=== PATIENT | female | born 1955 | race Caucasian/White ===

== ENCOUNTER 2019-04-26 06:20 | Day surgery (SDC) | payer OTHER ==
--- NOTE | 2019-04-25 15:27 | RAD REPORT ---
EXAM DESCRIPTION: RAD - Chest Pa And Lat (2 Views) - 04/25/2019 3:08 pm CLINICAL HISTORY: Preop chest, pending cholecystectomy and hernia repair COMPARISON: December 2017 TECHNIQUE: PA and lateral views of the chest were obtained. FINDINGS: The lungs are clear. Lung markings are similar to comparison. Heart size is normal and ce ntral vasculature is within normal limits. No pleural effusion or pneumothorax seen. No acute bony finding noted. No aortic abnormality. IMPRESSION: No acute cardiopulmonary process.
[2019-04-25 16:06] LABS: Potassium 4.1 mmol/L (3.5-5.1)
[2019-04-25 16:09] LABS: Albumin 3.8 g/dL (3.4-5.0); Bilirubin Direct 0.1 mg/dL (0-0.2); Bilirubin Total 0.4 mg/dL (0.2-1.0); Protein, Total 7.5 g/dL (6.4-8.2)
[2019-04-25 16:17] LABS: Absolute Lymphocytes (CBC) 1.7 K/uL (0.7-4.9); Absolute Monocytes 0.5 K/uL (0.1-1.3); Absolute Neutrophil 4.8 K/uL (1.8-8.0); Basophils % 0.6 % (0-1.3); Eosinophils % 2.1 % (0-4.4); Lymphocytes % 23.4 % (15.3-44.8); MPV 9.1 fL (7.6-11.3); Monocytes % 6.9 % (3.3-12.3); RBC Red Blood Cell Count 4.52 M/uL (3.86-4.86)
--- NOTE | 2019-04-26 06:17 | EKG ---
Test Date: 2019-04-25 Test Time: 14:55:40 Campus Security Officer: KASANDRA MEASUREMENT RESULTS: Intervals: Rate: 69 NC: 136 QRSD: 86 QT: 418 QTc: 447 Shirley: P: 56 NC: 136 QRS: -13 T: -7 INTERPRETIVE STATEMENTS: Normal sinus rhythm Possible Left atrial enlargement Borderline ECG Compared to ECG 01/05/2018 17:54:37 No significant changes Electronically Signed On 04-26-19 06:17:03 CDT by Dallas Lerma
--- OUTSIDE RECORDS SUMMARY | 2019-04-26 06:30 | XMS REPORT | Summary of Care ---
:1955 Author Organization [facility] Address [id number] [place] [id number] Encounter HQ Encntr_lorna(FIN) [id number] Date(s): 12/21/17 - 12/21/17 [facility] [id number] [place] [phone] Encounter Diagnosis Encounter for screening mammogram for malignant neoplasm of breast (Final) - 12/22 Discharge Disposition: Home or Self Care Attending Physician: Alvaro Jovel MD Referring Physician: Alvaro Jovel MD Vital Signs No data available for this section Problem List Condition Effective Dates Status Health Status Informant Anxiety(Confirmed) Active Apnea, sleep(Confirmed) Active HTN - Hypertension(Confirmed) Resolved Pain in lower back(Confirmed) Resolved Allergies, Adverse Reactions, Alerts Substance Reaction Severity Status amoxicillin Active Medications No data available for this section Results No data available for this section Immunizations No data available for this section Procedures Procedure Date Related Diagnosis Body Site Status Arthroplasty Completed section1 Completed Tonsillectomy Completed 1X2 Social History Social History Type Response Smoking Status Never smoker; Exposure to Tobacco Smoke None; Cigarette Smoking Last 365 Days No; Reg Smoking Cessation Counseling No entered on: 06/30/16 Assessment and Plan No data available for this section
--- OUTSIDE RECORDS SUMMARY | 2019-04-26 06:30 | XMS REPORT | Continuity of Care Document ---
:1955 Author Organization Interface Problems Problem Status Onset Classification Date Comments Source Date Reported DX: Active 03/24/20 [facility] R10.9=UNSPECIFIED 19 ABDOMINAL PAIN SCREENINGNO Active 12/19/19 [facility] PAIN,LUMPS OR 19 DC Left lower 01/19/20 04/20/2018 OPI quadrant pain 18 [place] SCREENING Active 11/25/19 [facility] MAMMOGRAM 18 DX: ROUTINE Active 01/27/20 [facility] SCREENING 17 Discharge 06/27/20 06/30/2016 [facility] Diagnosis: Acute 16 hypokalemia Discharge 06/27/20 06/30/2016 [facility] Diagnosis: Acute 16 anxiety DIZZINESS Active 06/27/20 [facility] 16 UNK Active 06/16/20 [facility] 16 Acute pharyngitis 06/07/20 Diagnosis 06/07/2016 [facility] 16 Posterior 06/07/20 Diagnosis 06/07/2016 [facility] rhinorrhea 16 Bacterial 05/18/20 Diagnosis 06/07/2016 [facility] conjunctivitis 16 SCREENING Active 11/29/19 [facility] 16 Anxiety Active Problem 03/30/2019 [facility], OPID [place] Apnea, sleep Active Problem 03/30/2019 [facility], [facility] [place] HTN - Resolved Problem 03/30/2019 Hypertension [facility], [facility] [place] Pain in lower Resolved Problem 03/30/2019 back [facility], OP[facility] [place] Unspecified 04/20/2018 [facility] dyspareunia [place] Encounter for 12/25/2018 [facility] screening mammogram for malignant neoplasm of breast Bacterial Problem 06/07/2016 [facility] Conjunctivitis Acute Pharyngitis Problem 06/07/2016 [facility] Posterior Problem 06/07/2016 [facility] Rhinorrhea Medications Medication Details Route Status Patient Ordering Order Source Instructions Provider Date Acetaminophen 325 1 tab, Route: Inactive MG / Hydrocodone PO, Drug Form: 2015 Bitartrate 5 MG TAB, Dosing Oral Tablet Weight 90.455, kg, Q4H, PRN Pain Score 1-3, Start date: 06/30/16 8:40:00 CDT, Duration: 30 day, Stop date: 07/30/16 8:39:00 CDTNotes: (Same as: [place] 325/5) Do not exceed 4gm/day of acetaminophen. Flumazenil 0.2 mg, Route: Inactive IVP, PRN, 2015 [facility] Dosing Weight 90.455, kg, PRN Benzodiazepine Reversal, Initial dose, Start date: 06/30/16 8:31:00 CDT, Duration: 30 day, Stop date: 07/30/16 8:30:00 CDT Fentanyl 50 microgram, Inactive Route: IVP, 2015 [facility] Q5Min, Dosing Weight 90.455, kg, PRN Pain Score 7-10, Start date: 06/30/16 8:31:00 CDT, Duration: 2 doses or times, Stop date: Limited # of times Ondansetron 4 mg, Route: Inactive IVP, ONCE, 2015 [facility] Dosing Weight 90.455, kg, PRN Nausea & Vomiting, Start date: 06/30/16 8:31:00 CDT Hydromorphone 0.5 mg, Route: Inactive IVP, Q5Min, 2015 [facility] Dosing Weight 90.455, kg, PRN Pain Score 7-10, Start date: 06/30/16 8:31:00 CDT, Duration: 4 doses or times, Stop date: Limited # of times Oxycodone 10 mg, Route: Inactive PO, Drug form: 2015 [facility] TAB, Q4H, Dosing Weight 90.455, kg, PRN Pain Score 7-10, Start date: 06/30/16 8:31:00 CDT, Duration: 30 day, Stop date: 07/30/16 8:30:00 CDT Naloxone 0.4 mg, Route: Inactive IVP, Q2MIN, 2015 [facility] Dosing Weight 90.455, kg, PRN Narcotic Reversal, Start date: 06/30/16 8:31:00 CDT, Duration: 8 doses or times, Stop date: Limited # of times Acetaminophen 1,000 mg, Inactive Route: IVPB, 2015 [facility] Drug form: INJ, ONCE, Dosing Weight 90.455, kg, PRN Pain Score 1-3, Start date: 06/30/16 8:31:00 CDT, Duration: 1 doses or times, Stop date: Limited # of times Labetalol 10 mg, Route: Inactive IVP, Q5Min, 2015 [facility] Dosing Weight 90.455, kg, PRN Elevated BP, Start date: 06/30/16 8:31:00 CDT, Duration: 5 doses or times, Stop date: Limited # of times ketOROLAC (ANES) IV, ONCE Inactive 2015 [facility] propofol (ANES) Route: IV, Inactive Drug form: 2015 [facility] INJ, ONCE, Stop date: 06/30/16 8:27:00 CDT lidocaine (ANES) Route: IV, Inactive Drug form: 2015 [facility] INJ, ONCE, Stop date: 06/30/16 8:27:00 CDT ondansetron Route: IV, Inactive (ANES) Drug form: 2015 [facility] INJ, ONCE, Stop date: 06/30/16 8:17:00 CDT fentaNYL (ANES) Route: IV, Inactive Drug form: 2015 [facility] INJ, ONCE, Stop date: 06/30/16 8:17:00 CDT levofloxacin Route: IV, Inactive (ANES) Drug form: 2015 [facility] INJ, ONCE, Stop date: 06/30/16 8:17:00 CDT metroNIDAZOLE Route: IV, Inactive (ANES) Drug form: 2015 [facility] INJ, ONCE, Stop date: 06/30/16 8:17:00 CDT midazolam (ANES) Route: IV, Inactive Drug form: 2015 [facility] SOLN, ONCE, Stop date: 06/30/16 8:07:00 CDT 72 HR Scopolamine 1 patch, Inactive 0.0139 MG/HR Route: TOP, 2015 [facility] Transdermal Patch Drug Form: ERFILM, Dosing Weight 90.455, kg, PRE OP, Start date: 06/30/16 8:00:00 CDT, Duration: 30 day, Stop date: 07/30/16 7:59:00 CDT LR 1000 mL INJ Route: IV, Inactive (ANES) Total Volume: 2015 [facility] 1,000, Start date: 06/30/16 7:32:00 CDT, Stop date: 06/30/16 8:32:00 CDT moxifloxacin 400 mg, Route: Inactive IVJUN BRIANAHUA, 2015 [facility] Dosing Weight 90.455, kg, Start date: 06/30/16 7:30:00 CDT Potassium 10 mEq=1 tab, Active Chloride 10 MEQ PO, Daily, 0 2015 [facility] Extended Release Refill(s) Tablet Calcium Chloride 1,000 mL, Inactive 0.0014 MEQ/ML / Rate: 25 2015 [facility] Potassium ml/hr, Infuse Chloride 0.004 over: 40 hr, MEQ/ML / Sodium Route: IV, Chloride 0.103 Dosing Weight MEQ/ML / Sodium 90.455 kg, Lactate 0.028 Total Volume: MEQ/ML Injectable 1,000, Start Solution date: 06/30/16 7:07:00 CDT, Duration: 30 day, Stop date: 07/30/16 7:06:00 CDT Levaquin 750 mg, 150 Inactive mL, Route: 2015 [facility] IVPB, Drug form: ANAISJIE, Start date: 06/30/16 7:00:00 CDT, Duration: 1 doses or timesNotes: (Same as:Levaquin) potassium 40 mEq, 2 tab, Inactive chloride Route: PO, 2015 [facility] Drug form: ERTAB, ONCE, Dosing Weight 90.455, kg, Priority: STAT, Start date: 06/27/16 18:20:00 CDT, Stop date: 06/27/16 18:20:00 CDTNotes: (Same as: K-Dur 20) "Do Not Crush" With food and full glass of water Ativan 1 mg, 1 tab, Inactive Route: PO, 2015 [facility] Drug form: TAB, ONCE, Dosing Weight 90.455, kg, Priority: STAT, Start date: 06/27/16 15:05:00 CDT, Stop date: 06/27/16 15:05:00 CDTNotes: (Same as: Ativan) pravastatin 20 mg 20 mg=1 tab, Active oral tablet PO, Bedtime, # 2016 30 tab, 0 Refill(s) zolpidem 10 mg 10 mg=1 tab, Active oral tablet PO, Bedtime, 2015 PRN for sleep, # 14 tab, 0 Refill(s) amLODIPine 10 mg 10 mg=1 tab, Active oral tablet PO, Daily, # 2015 30 tab, 0 Refill(s) Aspirin 81 MG 81 mg=1 tab, Active Enteric Coated PO, Daily, 2016 Tablet *LAST DOSE 06/22/16 AM*, # 90 tab, 3 Refill(s) venlafaxine 37.5 37.5 mg=1 cap, Active mg oral capsule, PO, Daily, # 2015 extended release 30 cap, 0 Refill(s) Hydrochlorothiazi 1 tab, PO, Active de 25 MG / Daily, # 30 2015 Losartan tab, 0 Potassium 100 MG Refill(s) Oral Tablet Amlodipine 10 MG amlodipine 10 Active [facility] Oral Tablet mg tablet Azithromycin 250 azithromycin Active [facility] MG Oral Tablet 250 mg tablet TAKE 2 TABLETS (500 MG) BY ORAL ROUTE ONCE DAILY FOR 1 DAY THEN 1 TABLET (250 MG) BY ORAL ROUTE ONCE DAILY FOR 4 DAYS Hydrochlorothiazi losartan 100 Active [facility] de 25 MG / mg-hydrochloro Losartan thiazide 25 mg Potassium 100 MG tablet TAKE 1 Oral Tablet TABLET ONCE DAILY.NEEDS OFFICE VISIT WITH NEW PCP Pravastatin pravastatin 20 Active [facility] Sodium 20 MG Oral mg tablet TAKE Tablet 1 TABLET BY MOUTH DAILY. NEEDS NEW PCP Zolpidem tartrate zolpidem 10 mg Active [facility] 10 MG Oral Tablet tablet moxifloxacin 5 Vigamox 0.5 % Active [facility] MG/ML Ophthalmic eye drops Solution INSTILL 1 DROP [Vigamox] INTO RIGHT EYE BY OPHTHALMIC ROUTE 3 TIMES PER DAY x 7 DAYS Allergies, Adverse Reactions, Alerts Substance Category Reaction Severity Reaction Status Date Comments Source type Reported Amoxicillin Rash Allergy to [facility] substance 6 amoxicillin Assertion Drug Active allergy [facility] Immunizations Immunization Date Given Site Status Last Comments Source Updated influenza, 08/15/2015 completed [facility] seasonal, injectable Results Order Name Results Value Reference Date Interpretation Comments Source Range Abdomen Abdomen Patient Name: MICHAEL COURTNEY 03/28 - complete complete US /2018 - [facility] US : 1955; Age: 63 years Female MR: [id number] Read by: Tay Cooley MD Dictated Date/time: 03/28/19 09:29 Electronically Signed by: Tay Cooley MD 03/28/19 09:32 FINAL REPORT Study: Abdomen complete US 03/28/2019 7:37 CDT Clinical Indication: - R10.9 Unspecified abdominal pain. COMPARISON: Computed axial tomography scan 04/30/2016. TECHNIQUE: Grayscale and limited color sonographic evaluation of the abdomen was performed with standard technique. FINDINGS: LIVER: The visualized liver shows normal contour, size, and morphology. There is normal parenchymal echotexture. BILE DUCTS: The intrahepatic and extrahepatic bile ducts are not dilated. The common bile duct measures 3.8 mm. The distal common bile duct is not well seen. GALLBLADDER: Numerous gallstones and sludge. No pericholecystic fluid or abnormal wall thickness. PANCREAS: The pancreas body body is normal. The head and tail are obscured by bowel gas. SPLEEN: 10.2 x 3.4 x 4.7 cm. KIDNEY: The right kidney measures 11.2 x 6.5 x 5.4 cm. The renal cortical thickness measures 1.4 cm. The left kidney measures 10.7 x 5.7 x 5.2 cm. The renal cortical thickness measures 1.7 cm. There is normal renal contour and morphology, with normal parenchymal echotexture. There is no hydronephrosis. AORTA AND INFERIOR VENA CAVA: Visualized portions appear normal. ASCITES: There is no abdominal ascites. IMPRESSION: Cholelithiasis and sludge. SL: [id number] Breast Breast Mammo 12/23 - Mammo Scrn Scrn ANKIT w - ANKIT w viola viola incl incl CAD CAD MARTIN SALAZAR Read by: Lucina Galeano MD Dictated Date/time: 12/23/18 13:58 BILATERAL DIGITAL SCREENING MAMMOGRAM 3D/2D WITH CAD: 12/23/2018 Electronically Signed by: Lucina Galeano MD 12/23/18 13 :58 FINAL REPORT CLINICAL: /Routine. Current study was evaluated with a Computer Aided Detection (CAD) system. COMPARISON:Comparison is made to exams dated: 12/21/2017 mammogram, 2016 mammogram, 01/28/2016 mammogram, 01/16/2015 mammogram - [facility], and 01/04/2014 mammogram - [facility]. TECHNIQUE: Digital Breast Tomosynthesis was performed and utilized for Interpretation. [employer] Version 1.3 was utilized for computer aided detection. FINDINGS: There are scattered fibroglandular densities in both breasts. There is a stable benign appearing nodule in the right breast. There also are stable benign appearing nodules in the left breast. No significant masses, calcifications, or other findings are seen in either breast. There has been no significant interval change. IMPRESSION: BENIGN RECOMMENDATION:There is no mammographic evidence of malignancy. A 1 year screening mammogram is recommended.(12/24/2019) This exam was interpreted at [id number] for [facility]. Lucina Galeano M.D. ap/penrad:12/23/2018 13:58:43 Document Improvement Specialist(s): Flores Zamora, [facility] letter sent: BI-RADS 1/2 Mammogram BI-RADS: 2 Benign Pelvis w Pelvis w EXAM: US PELVIS TRANSABDOMINAL 01/12 - [facility] Pelvis /[address] [place] [address] Transvagin Transvaginal EXAM: US PELVIS TRANSVAGINAL al US US Read by: Gregory Gagnon MD Dictated Date/time: 01/12/18 14:40 DATE: 01/12/2018 1:34 PM BEAD STRINGER Electronically Signed by: Gregory Gagnon MD 01/12/18 14:41 FINAL REPORT INDICATION: - R10.32 Left lower quadrant pain, UNSPECIFIED DYSPAREUNIA COMPARISON: 06/12/2016 TECHNIQUE: Multiplanar grayscale and color Doppler ultrasound images of the pelvis were obtained transabdominally through a distended urinary bladder followed by transvaginal examination postvoid. Transvaginal scanning was limited. FINDINGS: Uterus: Size: 6.9 x 3.3 x 3.5 cm Masses: None. Cervix: Nabothian cysts. Endometrium: 5 mm. Homogeneous. Right ovary: Size: 2.8 x 0.9 x 2 cm Cysts: None. Masses: None. Left ovary: Size: 2.4 x 1 x 1.7 cm Cysts: None. Masses: None. Adnexa: Normal. Free fluid: None. Other findings: None. IMPRESSION: Normal appearing uterus and ovaries. No adnexal mass. Homogeneous endometrium measuring up to 5 mm. Breast Breast Mammo 12/21 - Mammo Scrn Scrn ANKIT - [facility] ANKIT incl incl CAD MA CAD MA Read by: Anali Woodall MD Dictated Date/time: 12/21/17 15:36 BILATERAL DIGITAL SCREENING MAMMOGRAM WITH CAD: 12/21/2017 Electronically Signed by: Anali Woodall MD 12/21/17 15 :36 FINAL REPORT CLINICAL: /Routine. Current study was evaluated with a Computer Aided Detection (CAD) system. COMPARISON:Comparison is made to exams dated: 03/03/2017 mammogram, 2015 mammogram, 01/16/2015 mammogram - [facility], 01/04/2014 mammogram - [facility], and 12/29/2012 mammogram - [facility]. TECHNIQUE: Mammographic views were obtained using digital acquisition. [employer] Version 1.3 was utilized for computer aided detection. FINDINGS: There are scattered fibroglandular densities in both breasts. There is a benign appearing nodule in the right breast. There also are benign appearing nodules in the left breast. No significant masses, calcifications, or other findings are seen in either breast. There has been no significant interval change. IMPRESSION: BENIGN RECOMMENDATION:There is no mammographic evidence of malignancy. A 1 year screening mammogram is recommended.(2018) This exam was interpreted at [id number] for [facility]. Anali boles/penrad:12/21/2017 15:36:25 Document Improvement Specialist(s): Flores Zamora [facility] letter sent: BI-RADS 1/2 Mammogram BI-RADS: 2 Benign Breast Breast Mammo - BREAST MAMMO SCRN ANKIT W VIOLA INCL CAD MA 03/03 - Mammo Scrn Scrn ANKIT w - [facility] ANKIT w viola viola incl BILATERAL DIGITAL SCREENING MAMMOGRAM 3D/2D WITH CAD: incl CAD CAD MARTIN SALAZAR CLINICAL: Routine. Read by: Anali Woodall MD Dictated Date/time: 03/03/17 13:43 Electronically Signed by: Anali Woodall MD 03/03/17 13:43 FINAL REPORT 2D digital mammographic images and 3D digital tomosynthesis images were obtained in the CC and MLO projections. Current study was evaluated with a Computer Aided Detection (CAD) system. Comparison is made to exams dated: 01/28/2016 mammogram, 01/16/2015 mammogram - [facility], 01/04/2014 mammogram - [facility], 12/29/2012 mammogram, 12/08/2011 mammogram and 12/17/2010 mammogram - [facility]. There are scattered fibroglandular densities in both breasts. There is a benign appearing nodule in the right breast. There also are benign appearing nodules in the left breast. No significant masses, calcifications, or other findings are seen in either breast. There has been no significant interval change. IMPRESSION: BENIGN There is no mammographic evidence of malignancy. A 1 year screening mammogram is recommended. Anali gomezt/penrad:03/03/2017 13:43:25 Document Improvement Specialist: Flores Zamora, [facility] This exam was dictated and interpreted by [id number] for [facility]. letter sent: Normal exam Mammogram BI-RADS: 2 Benign ELECTROLYT Potassium 3.4 meq/L 3.5 - 5.1 06/30 ES Lv [facility] CHEM PANEL Magnesium 2.0 mg/dL 1.8 - 2.4 06/27 Lvl [facility] ELECTROLYT AGAP 13.1 meq/L 10.0 - 06/27 ES 20.0 [facility] ELECTROLYT eGFR 73 06/27 Result Comment: The eGFR is calculated using the CKD-EPI formula. In most young, healthy individuals the eGFR will be >90 mL/ min/1.73m2. The eGFR declines with age. An eGFR of 60-89 may be normal in ES mL/min/1.7 /2015 some populations, particularly the elderly, for whom the CKD-EPI formula has not been extensively validated. Use of the eGFR is not recommended in the following populations: [facility] 3m2 Individuals with unstable creatinine concentrations, including patients and those with serious co-morbid conditions. Patients with extremes in muscle mass or diet. The data above are obtained from the National Kidney Disease Education Program (NKDEP) which additionally recommends that when the eGFR is used in patients with extremes of body mass index for purposes of drug dosing, the eGFR should be multiplied by the estimated BMI. ELECTROLYT Glucose Lvl 90 mg/dL 70 - 99 06/27 [facility] ELECTROLYT Sodium Lvl 139 meq/L 135 - 145 06/27 [facility] ELECTROLYT CO2 29 meq/L 24 - 32 06/27 [facility] ELECTROLYT Creatinine 0.88 mg/dL 0.50 - 06/27 ES Lvl 1.40 [facility] ELECTROLYT BUN 8 mg/dL 7 - 22 06/27 [facility] ELECTROLYT Chloride Lvl 100 meq/L 95 - 109 06/27 [facility] ELECTROLYT Potassium 3.1 meq/L 3.5 - 5.1 06/27 [facility] Lvl [facility] ELECTROLYT Calcium Lvl 9.0 mg/dL 8.5 - 10.5 06/27 [facility] HEMATOLOGY MCH 30.6 pg 27.0 - 06/27 31.0 [facility] HEMATOLOGY MCV 89.7 fL 80.0 - 06/27 98.0 [facility] HEMATOLOGY Hct 41.7 % 36.0 - 06/27 48.0 [facility] HEMATOLOGY Hgb 14.2 g/dL 12.0 - 06/27 16.0 [facility] HEMATOLOGY RDW 14.3 % 11.5 - 06/27 14.5 [facility] HEMATOLOGY MPV 7.9 fL 7.4 - 10.4 06/27 [facility] HEMATOLOGY Platelet 246 K/CMM 133 - 450 06/27 [facility] HEMATOLOGY MCHC 34.1 g/dL 32.0 - 06/27 36.0 [facility] HEMATOLOGY RBC 4.65 M/CMM 4.20 - 06/27 MH 5.40 /2015 [facility] HEMATOLOGY WBC 6.4 K/CMM 3.7 - 10.4 06/27 [facility] HEMATOLOGY Basophils # 0.1 K/CMM 0.0 - 0.2 06/27 [facility] HEMATOLOGY Monocytes # 0.6 K/CMM 0.0 - 0.8 06/27 [facility] HEMATOLOGY Eosinophils 0.1 K/CMM 0.0 - 0.5 06/27 MH # /2015 [facility] HEMATOLOGY Segs-Bands # 3.7 K/CMM 1.5 - 8.1 06/27 [facility] HEMATOLOGY Lymphocytes 2.0 K/CMM 1.0 - 5.5 06/27 # /2015 [facility] HEMATOLOGY Basophils 0.8 % 0.0 - 1.0 06/27 [facility] HEMATOLOGY Monocytes 9.3 % 2.0 - 12.0 06/27 [facility] HEMATOLOGY Segs 57.3 % 45.0 - 06/27 75.0 [facility] HEMATOLOGY Lymphocytes 31.4 % 20.0 - 06/27 40.0 [facility] HEMATOLOGY Eosinophils 1.2 % 0.0 - 4.0 06/27 [facility] URINE AND UA Sq Epi Moderate Few /LPF 06/27 STOOL /LPF /2015 URINE AND UA RBC 0-2 /HPF 0 - 2 06/27 [facility] URINE AND UA WBC None Seen 0 - 5 06/27 [facility] (06/27/16 3:08 PM) URINE AND UA Bacteria None Seen None Seen 06/27 [facility] (06/27/16 3:08 PM) URINE AND UA Spec Grav <=1.005 <=1.030 06/27 STOOL
*NA*< br/>( 3:08 PM) URINE AND UA Protein Negative Negative 06/27 (06/27/16 3:08 PM) URINE AND UA pH 7.5 5.0 - 8.0 06/27 [facility] URINE AND UA Leuk Est Negative Negative 06/27 (06/27/16 3:08 PM) URINE AND UA Glucose Negative Negative 06/27 (06/27/16 3:08 PM) URINE AND UA Ketones Negative Negative 06/27 [facility] *NA* (06/27/16 3:08 PM) URINE AND UA Color Yellow Yellow 06/27 [facility] *NA* (06/27/16 3:08 PM) URINE AND UA Turbidity Clear Clear 06/27 [facility] (06/27/16 3:08 PM) URINE AND UA Blood Negative Negative 06/27 (06/27/16 3:08 PM) URINE AND UA Bili Negative Negative 06/27 [facility] *NA* (06/27/16 3:08 PM) URINE AND UA Nitrite Negative Negative 06/27 STOOL /2015 [facility] (06/27/16 3:08 PM) URINE AND UA 0.2 EU/dL 0.1 - 1.0 06/27 STOOL Urobilinogen /2015 [facility] BLOOD BANK Antibody Negative 06/22 RESULTS Scrn [facility] (06/22/16 2:26 PM) BLOOD BANK ABO/Rh O POS 06/22 RESULTS [facility] CHEM PANEL eGFR 68 06/22 Result Comment: The eGFR is calculated using the CKD-EPI formula. In most young, healthy individuals the eGFR will be >90 mL/ min/1.73m2. The eGFR declines with age. An eGFR of 60-89 may be normal in mL/min/1. some populations, particularly the elderly, for whom the CKD-EPI formula has not been extensively validated. Use of the eGFR is not recommended in the following populations: [facility] 3m2 Individuals with unstable creatinine concentrations, including patients and those with serious co-morbid conditions. Patients with extremes in muscle mass or diet. The data above are obtained from the National Kidney Disease Education Program (NKDEP) which additionally recommends that when the eGFR is used in patients with extremes of body mass index for purposes of drug dosing, the eGFR should be multiplied by the estimated BMI. CHEM PANEL B/C Ratio 16 6 - 25 06/22 [facility] CHEM PANEL Calcium Lvl 9.0 mg/dL 8.5 - 10.5 06/22 [facility] CHEM PANEL Bili Total 0.5 mg/dL 0.2 - 1.3 06/22 [facility] CHEM PANEL AST 17 unit/L 0 - 37 06/22 [facility] CHEM PANEL ALT 27 unit/L 0 - 65 06/22 [facility] CHEM PANEL Alk Phos 62 unit/L 39 - 136 06/22 [facility] CHEM PANEL A/G Ratio 0.9 0.7 - 1.6 06/22 [facility] CHEM PANEL Globulin 3.6 g/dL 2.7 - 4.2 06/22 [facility] CHEM PANEL Total 7.0 g/dL 6.4 - 8.4 06/22 Protein [facility] CHEM PANEL Albumin Lvl 3.4 g/dL 3.5 - 5.0 06/22 [facility] CHEM PANEL AGAP 11.7 meq/L 10.0 - 08 20.0 /2015 [facility] CHEM PANEL CO2 31 meq/L 24 - 32 06/22 [facility] CHEM PANEL Chloride Lvl 100 meq/L 95 - 109 06/22 [facility] CHEM PANEL Potassium 2.7 meq/L 3.5 - 5.1 06/22 Result Lvl /2015 Comment: [facility] Critical Result(s) called to Uyen Pérez at 06/22/2016 15:51_ by_AN. Read back OK. CHEM PANEL Creatinine 0.94 mg/dL 0.50 - 08 Lvl 1.40 /2015 [facility] CHEM PANEL Sodium Lvl 140 meq/L 135 - 145 06/22 [facility] CHEM PANEL BUN 15 mg/dL 7 - 22 06/22 [facility] CHEM PANEL Glucose Lvl 87 mg/dL 70 - 99 06/22 [facility] HEMATOLOGY Monocytes # 0.6 K/CMM 0.0 - 0.8 06/22 [facility] HEMATOLOGY Eosinophils 0.1 K/CMM 0.0 - 0.5 06/22 MH # /2015 [facility] HEMATOLOGY Segs-Bands # 3.4 K/CMM 1.5 - 8.1 06/22 [facility] HEMATOLOGY Lymphocytes 1.7 K/CMM 1.0 - 5.5 06/22 /2015 [facility] HEMATOLOGY Basophils 0.7 % 0.0 - 1.0 06/22 [facility] HEMATOLOGY Monocytes 9.8 % 2.0 - 12.0 06/22 [facility] HEMATOLOGY Eosinophils 1.5 % 0.0 - 4.0 06/22 [facility] HEMATOLOGY Segs 58.8 % 45.0 - 06/22 75.0 [facility] HEMATOLOGY Lymphocytes 29.2 % 20.0 - 06/22 40.0 [facility] HEMATOLOGY RDW 14.0 % 11.5 - 06/22 14.5 [facility] HEMATOLOGY MPV 8.3 fL 7.4 - 10.4 06/22 [facility] HEMATOLOGY Platelet 203 K/CMM 133 - 450 06/22 [facility] HEMATOLOGY MCH 30.5 pg 27.0 - 06/22 31.0 [facility] HEMATOLOGY MCV 90.4 fL 80.0 - 06/22 98.0 /2015 [facility] HEMATOLOGY Hgb 13.9 g/dL 12.0 - 06/22 MH 16.0 /2015 [facility] HEMATOLOGY MCHC 33.8 g/dL 32.0 - 08 MH 36.0 /2015 [facility] HEMATOLOGY RBC 4.56 M/CMM 4.20 - 08 MH 5.40 /2015 [facility] HEMATOLOGY WBC 5.7 K/CMM 3.7 - 10.4 / MH /2015 [facility] HEMATOLOGY Hct 41.2 % 36.0 - 06/22 MH 48.0 /2015 [facility] HEMATOLOGY PTT 26.7 s 22.9 - 08 MH 35.8 /2015 [facility] HEMATOLOGY INR 0.94 0.85 - 06/22 MH 1.17 /2015 [facility] HEMATOLOGY PT 12.9 s 12.0 - 06/22 MH 14.7 /2015 [facility] Pelvis w Pelvis w EXAM: US PELVIS TRANSABDOMINAL 06/12 - [facility] Pelvis Pelvis /2015 - [facility] Transvagin Transvaginal EXAM: US PELVIS TRANSVAGINAL al US US Read by: Gurvinder Nunn MD Dictated Date/time: 06/12/16 15:41 DATE: 06/12/2016 2:39 PM CDT Electronically Signed by: Gurvinder Nunn MD 06/12/16 15:44 FINAL REPORT INDICATION: N95.0 Postmenopausal bleeding. Spotting for one day. ADDITIONAL INFORMATION: LMP: 2010; history of tubal ligation. History of 2 prior section surgeries. COMPARISON: Computed tomography scan of the abdomen and pelvis of 2015. TECHNIQUE: Multiplanar grayscale and color Doppler ultrasound images of the pelvis were obtained transabdominally through a distended urinary bladder followed by transvaginal examination postvoid. FINDINGS: Uterus: Orientation: Anteverted Size: 7.0 x 3.5 x 3.5 cm Masses: None. Cervix: Nabothian cysts are seen in the uterus Endometrium: 7.3 mm, thickened for a postmenopausal female with bleeding. No focal abnormalities or abnormal endometrial vascularity are seen. Right ovary: Size: 2.0 x 1.3 x 1.4 cm Cysts: None. Masses: None. Vascularity: Normal. Left ovary: Only seen transvaginally Size: 2.5 x 1.0 x 2.1 cm Cysts: None. Masses: None. Vascularity: Normal. Adnexa: No adnexal masses or fluid collections are seen. Free fluid: None. Other findings: None. IMPRESSION: Thickening of the endometrium at 7.3 mm in this postmenopausal female with bleeding. Endometrial biopsy is recommended to exclude endometrial hyperplasia or carcinoma. No focal abnormalities are seen sonographically. Adenovirus RESULT negative 06/07 [facility] Ag /2015 [Presence] in Unspecifie d specimen by Immunoassa y Adenovirus SWAB Right 06/07 [facility] LOCATION Conjunctiv [Presence] a in Unspecifie d specimen by Immunoassa y RESULT negative 06/07 [facility] /2016 SWAB Left and 06/07 [facility] LOCATION Right /2015 tonsillar pillars Adenovirus RESULT negative 05/18 [facility] Ag /2015 [Presence] in Unspecifie d specimen by Immunoassa y Adenovirus SWAB Right 05/18 [facility] LOCATION Conjunctiv [Presence] a in Unspecifie d specimen by Immunoassa y Abdomen/Pe Abdomen/Pelv EXAM: Abdomen/Pelvis w/wo IV contrast CT 04/30 - [facility] lvis w/wo is w/wo IV /2015 - [place] IV contrast CT HISTORY: R10.32 Abdomen pain, chronic , left lower quadrant contrast CT COMPARISON: None Read by: Alli Howard MD Dictated Date/time: 04/30/16 15:56 Electronically Signed by: Alli Howard MD 04/30/16 16:[address] imaging of the abdomen and pelvis was obtained before and after 100 cc intravenous contrast. Oral contrast was administered prior to the study per protocol. Sagittal and coronal reformats were reviewed. DLP 1958 mGy cm. FINDINGS: The lung bases are clear. The liver appears normal without focal lesion. There is no biliary ductal dilation. The gallbladder is unremarkable. The spleen, pancreas, and bilateral adrenal glands are unremarkable. The kidneys enhance symmetrically. No focal parenchymal abnormalities identified. No hydronephrosis is present. There is an unusual appearing small (3.5 cm) protrusion from the gastric body posteriorly adjacent to the superior aspect of the spleen which does contain oral contrast and gas. The bowel is nondilated without evidence of inflammation. There is no evidence of appendicitis. There is mild diverticulosis of the sigmoid colon with a mildly prominent diverticula seen on series 3 image 98 with a tiny amount of surrounding stranding. No abscess or free air. There is no free fluid. No significant abdominal or pelvic lymphadenopathy is noted. No pelvic mass. The bladder is unremarkable. No aggressive osseous lesion. IMPRESSION: Probable early sigmoid diverticulitis. Recommend endoscopy to exclude an exophytic lesion arising from the fundus of the stomach posteriorly adjacent to the superior aspect of the spleen. Spine Spine lumbar EXAM: XR LUMBAR SPINE 5 VIEWS 04/29 - [facility] lumbar series DX /2015 - [facility] series DX DATE: 04/29/2016 10:48 AM CDT Read by: Eddie Tate MD Dictated Date/time: 04/29/16 15:52 Electronically Signed by: Eddie Tate MD 04/29/16 15:54 FINAL REPORT INDICATION: M54.5 Low back pain COMPARISON: Lumbar spine series 07/22/2010 TECHNIQUE: AP, lateral, coned lateral, LPO and RPO radiographs of the lumbar spine DISCUSSION: 5 nonrib bearing, lumbar-type vertebral bodies are present. Vertebral body heights are maintained. Grade 1 anterolisthesis at L4-5 with moderate disc space narrowing at this level. Mild disc space narrowing and moderate anterior vertebral body osteophytes at L1-2. Moderate facet arthropathy of the lower lumbar spine. No soft tissue abnormality is identified. IMPRESSION: 1. Moderate degenerative disc disease at L4-5 with grade 1 anterolisthesis. 2. Moderate degenerative disc disease at L1-2. 3. Moderate facet arthropathy of the lower lumbar spine. Digital Digital - DIGITAL MAMMO SCREEN ANKIT MARTIN Gutierrez VIOLA 01/27 - Mammo Mammo Screen /2015 - [facility] Screen Ankit Ankit MA w BILATERAL DIGITAL SCREENING MAMMOGRAM 3D/2D WITH CAD: MARTIN gutierrez viola viola CLINICAL: Screen. Read by: Lucina Galeano MD Dictated Date/time: 01/29/16 08:31 Electronically Signed by: Lucina Galeano MD 01/29/16 08:31 FINAL REPORT 2D digital mammographic images and 3D digital tomosynthesis images were obtained in the CC and MLO projections. Current study was evaluated with a Computer Aided Detection (CAD) system. Comparison is made to exams dated: 01/16/2015 mammogram - [facility], 01/04/2014 mammogram - [facility], 12/29/2012 mammogram, 12/08/2011 mammogram, 12/17/2010 mammogram and mammogram - [facility]. There are scattered fibroglandular densities in both breasts. There is a benign appearing nodule in the right breast. There also are benign appearing nodules in the left breast. No significant masses, calcifications, or other findings are seen in either breast. There has been no significant interval change. IMPRESSION: BENIGN There is no mammographic evidence of malignancy. A 1 year screening mammogram is recommended. Lucina Galeano M.D. ap/penrad:01/29/2016 08:31:58 Document Improvement Specialist: Chrystal Carrizales, [facility] This exam was dictated and interpreted by [id number] for [facility]. letter sent: Normal exam Mammogram BI-RADS: 2 Benign Digital Digital - DIGITAL MAMMO SCREEN ANKIT MA W VIOLA 01/16 - Mammo Mammo Screen /2014 - [facility] Screen Ankit Ankit MA w BILATERAL DIGITAL SCREENING MAMMOGRAM 3D/2D WITH CAD: 01/16 MA w viola viola CLINICAL: Screen. Read by: Anali Woodall MD Dictated Date/time: 01/16/15 14:12 Electronically Signed by: Anali Woodall MD 01/16/15 14:12 FINAL REPORT 2D digital mammographic images and 3D digital tomosynthesis images were obtained in the CC and MLO projections. Current study was evaluated with a Computer Aided Detection (CAD) system. Comparison is made to exams dated: 01/04/2014 mammogram - [facility], 12/29/2012 mammogram, 12/08/2011 mammogram, 12/17/2010 mammogram, 2009 mammogram and 08/17/2008 mammogram - [facility]. There are scattered fibroglandular densities in both breasts. There is a benign appearing nodule in the right breast. There also are benign appearing nodules in the left breast. No significant masses, calcifications, or other findings are seen in either breast. There has been no significant interval change. IMPRESSION: BENIGN There is no mammographic evidence of malignancy. A 1 year screening mammogram is recommended. Anali Woodall M.D. jt/penrad:01/16/2015 14:12:39 Document Improvement Specialist: Chrystal Carrizales [facility] This exam was dictated and interpreted by [id number] for [facility]. letter sent: Normal exam Mammogram BI-RADS: 2 Benign Vital Signs Vital Sign Value Date Comments Source Respitory Rate 18 06/30/2016 [facility] Systolic (mm Hg) 113 06/30/2016 [facility] Diastolic (mm Hg) 61 06/30/2016 [facility] Respitory Rate 14 06/30/2016 [facility] Systolic (mm Hg) 108 06/30/2016 [facility] Diastolic (mm Hg) 61 06/30/2016 [facility] Respitory Rate 12 06/30/2016 [facility] Systolic (mm Hg) 130 06/30/2016 [facility] Diastolic (mm Hg) 69 06/30/2016 [facility] Respitory Rate 16 06/28/2016 [facility] Temperature Oral (F) 98.2 F 06/28/2016 [facility] Heart Rate 76 06/28/2016 [facility] Systolic (mm Hg) 133 06/28/2016 [facility] Diastolic (mm Hg) 78 06/28/2016 [facility] Weight 90.455 06/27/2016 [facility] Respitory Rate 18 06/27/2016 [facility] Temperature Oral (F) 97.7 F 06/27/2016 [facility] Heart Rate 107 06/27/2016 [facility] Height 157.48 cm 06/27/2016 [facility] BMI Calculated 36.47 06/27/2016 [facility] Systolic (mm Hg) 130 06/27/2016 [facility] Diastolic (mm Hg) 83 06/27/2016 [facility] Temperature Oral (F) 98.5 F 06/22/2016 [facility] Heart Rate 80 06/22/2016 [facility] BMI Calculated 37.34 06/22/2016 [facility] Weight 92.591 06/22/2016 [facility] Height 157.48 cm 06/22/2016 [facility] Diastolic (mm Hg) 67 06/07/2016 [facility] Height 62 06/07/2016 [facility] Systolic (mm Hg) 118 06/07/2016 [facility] Weight 205 06/07/2016 [facility] Diastolic (mm Hg) 76 05/18/2016 [facility] Height 62 05/18/2016 [facility] Systolic (mm Hg) 118 05/18/2016 [facility] Weight 205 05/18/2016 [facility] Encounters Location Location Encounter Encounter Reason Attending ADM DC Status Source Details Type Number For Provider Date Date Visit [facility] Outpatient [id number] Anthony 01/16 01/17 [facility] 1 Mickey [facility] Outpatient [id number] [place] 01/27 01/28 [facility] 2 [facility] Outpt Diag [id number] Justen 04/29 04/30 [facility] [place] [facility] [id number] Terral 04/30 05/01 [facility] 6 [place] [facility] [place] [facility] [id number] Neha 05/18 [facility], [id number] ic - PA-C: [id number] [facility]5_Le[facility] S, [address] [place] [phone], Ph. [facility] Neha [id number] Neha 05/18 [facility], [id number] ic - PA-C: [id number] [facility], [address] [place] [address], Ph. [facility] Neha [id number] [facility] 06/07 [facility], [id number] ic - PA-C: [id number] [facility] S, [address] [place] [phone], Ph. [facility] Outpt Diag [id number] Jose C 06/12 06/13 [facility] Outpatient [facility] 7 [place] [facility] [id number] Brian 06/27 06/28 MH Kirk 4 Rocha [facility] Day Surgery [id number] Alvaro 06/30 06/30 [facility] 3 Jason III [facility] Outpatient [id number] Alvaro 03/03 03/04 [facility] 5 Jason III [facility] Outpatient [id number] Alvaro 12/21 12/22 [facility] 6 Jason [facility] Outpt Diag [id number] Alvaro 01/12 01/13 [facility] 8 Jason [facility] Outpatient [id number] Alvaro 12/23 12/24 OG [facility] 7 Jason III [facility] Outpatient [id number] Vani 03/28 03/29 OG [facility] 8 Irabor /2018 [facility] Procedures Procedure Code Date Perfomer Comments Source Arthroplasty 814654054 [place] [id number] X2 [place] section<sup>1</sup> Tonsillectomy 720016046 [place] Arthroplasty [id number] [facility] [place] [id number] X2 [facility] section<sup>1</sup> [place] Tonsillectomy [id number] [facility] [place]
--- OUTSIDE RECORDS SUMMARY | 2019-04-26 06:30 | XMS REPORT | Summary of Care ---
:1955 Author Organization [facility] Address [address] [place], [place] [address]- Encounter HQ Encntr_alias(FIN) [id number] Date(s): 03/28/19 - 03/28/19 [facility] [address] [place] [address]- [phone] Discharge Disposition: Home or Self Care Attending Physician: Vani Mack NP Admitting Physician: Vani Mack NP Referring Physician: Vani Mack COAL [employer]IKER Vital Signs No data available for this [...]
--- OUTSIDE RECORDS SUMMARY | 2019-04-26 06:30 | XMS REPORT | Summary of Care ---
:1955 Author Encounter HQ Encntr_lorna(JOYCE) [id number] Date(s): 01/16/15 - 01/16/15 [facility] [address] [place] [address]- Discharge Disposition: Home Physician Attending: Anthony Arevalo MD Physician_Referring: Anthony Arevalo MD Vital Signs No data available for this section Problem List No data available for this section Allergies, Adverse Reactions, Alerts Substance Reaction Severity Status NKDA Active Medications No data available for this section Results No data available for this section Immunizations No data available for this section Procedures No data available for this section Social History No data available for this section Assessment and Plan No data available for this section
--- OUTSIDE RECORDS SUMMARY | 2019-04-26 06:30 | XMS REPORT | Summary of Care ---
:1955 Author Organization [facility] Outpatient Imaging - [facility] [address] [place] [address]- Encounter HQ Encntr_alias(FIN) [id number] Date(s): 01/12/18 - 01/12/18 [facility] Outpatient Imaging - [place] [address], [address] [place] [address]- [phone] Encounter Diagnosis Left lower quadrant pain (Final) - 01/17/18 Unspecified dyspareunia (Final) - Discharge Disposition: Home or Self Care Attending Physician: Alvaro Jovel MD Vital Signs No [...]
--- OUTSIDE RECORDS SUMMARY | 2019-04-26 06:30 | XMS REPORT | Summary of Care ---
:1955 Author Organization [facility] Address [address] [place], [place] [address]- Encounter HQ Encntr_alias(FIN) [id number] Date(s): 01/28/16 - 01/28/16 [facility] [address] [place] [address]- [phone] Discharge Disposition: Home Attending Physician: Marion Ugalde MD Referring Physician: Marion Ugalde MD Vital Signs No data available for [...]
--- OUTSIDE RECORDS SUMMARY | 2019-04-26 06:30 | XMS REPORT | Summary of Care ---
:1955 Author Organization [facility] Address [address] [place], [place] [address]- Encounter HQ Encntr_aliwesley(FIN) [id number] Date(s): 12/23/18 - 12/23/18 [facility] [address] [place] [address]- Encounter Diagnosis Encounter for screening mammogram for malignant neoplasm of breast (Final) - Discharge Disposition: Home or Self [...]
--- OUTSIDE RECORDS SUMMARY | 2019-04-26 06:31 | XMS REPORT | Summary of Care ---
:1955 Author Organization [facility] Outpatient Imaging - [place] Address [address] [place] [address]- Encounter HQ Encntr_alias(FIN) [id number] Date(s): 04/29/16 - 04/29/16 [facility] Outpatient Imaging - [place] [address] [place] [address], [address] [place] [address]- [phone] Discharge Disposition: Home Attending Physician: Justen Kinney MD Vital Signs No data available for [...]
--- OUTSIDE RECORDS SUMMARY | 2019-04-26 06:31 | XMS REPORT | Summary of Care ---
:1955 Author Organization [facility] Outpatient Imaging - [place] Address [address] [place], [place] [address]- Encounter HQ Encntr_alias(FIN) [id number] Date(s): 04/30/16 - 04/30/16 [facility] Outpatient Imaging - [place] [address] [place] [address]- [phone] Discharge Disposition: Home Attending Physician: Justen Kinney [...]
--- OUTSIDE RECORDS SUMMARY | 2019-04-26 06:31 | XMS REPORT | Summary of Care ---
:1955 Author Organization [facility] Address [address] [place], [place] [address]- Encounter HQ Andreinantr_lorna(FIN) [id number] Date(s): 06/27/16 - 06/27/16 [facility] [address] [place] [address]- [phone] Discharge Diagnosis: Acute hypokalemia Discharge Diagnosis: Acute anxiety Discharge Disposition: Home or Self Care Attending Physician: Brian Rocha MD Vital Signs Most recent to oldest [Reference Range]: 1 2 Height 157.48 cm (06/27/16 2:57 PM) Temperature Oral [96.4-99.1 DegF] 98.2 DegF 97.7 DegF (06/27/16 8:28 PM) (06/27/16 2:57 PM) Blood Pressure [90-140/60-90 mmHg] 133/78 mmHg 130/83 mmHg (06/27/16 8:28 PM) (06/27/16 2:57 PM) Respiratory Rate [14-20 BRMIN] 16 BRMIN 18 BRMIN (06/27/16 8:28 PM) (06/27/16 2:57 PM) Peripheral Pulse Rate [60-100 bpm] 76 bpm 107 bpm (06/27/16 8:28 PM) *HI* (06/27/16 2:57 PM) Weight 90.455 kg (06/27/16 2:57 PM) Body Mass Index 36.47 m2 (06/27/16 2:57 PM) Problem List Condition Effective Dates Status Health Status Informant Anxiety(Confirmed) Active Apnea, sleep(Confirmed) Active HTN - Hypertension(Confirmed) Resolved Pain in lower back(Confirmed) Resolved Allergies, Adverse Reactions, Alerts Substance Reaction Severity Status amoxicillin Active Medications Ativan 1 mg, 1 tab, Route: PO, Drug form: TAB, ONCE, Dosing Weight 90.455, kg, Priority : STAT, Start date: 06/27/16 15:05:00 CDT, Stop date: 06/27/16 15:05:00 CDT Notes: (Same as: Ativan) Start Date: 06/27/16 Stop Date: 06/27/16 Status: Completedpotassium chloride 40 mEq, 2 tab, Route: PO, Drug form: ERTAB, ONCE, Dosing Weight 90.455, kg, Priority: STAT, Start date: 06/27/16 18:20:00 CDT, Stop date: 06/27/16 18:20:00 CDT Notes: (Same as: K-Dur 20)"Do Not Crush" With food and full glass of water Start Date: 06/27/16 Stop Date: 06/27/16 Status: Completed Results ELECTROLYTES Most recent to oldest [Reference Range]: 1 Sodium Lvl [135-145 mEq/L] 139 mEq/L (06/27/16 5:46 PM) Potassium Lvl [3.5-5.1 mEq/L] 3.1 mEq/L *LOW* (06/27/16 5:46 PM) Chloride Lvl [95-109 mEq/L] 100 mEq/L (06/27/16 5:46 PM) CO2 [24-32 mEq/L] 29 mEq/L (06/27/16 5:46 PM) AGAP [10.0-20.0 mEq/L] 13.1 mEq/L (06/27/16 5:46 PM) CHEM PANEL Most recent to oldest [Reference Range]: 1 Creatinine Lvl [0.50-1.40 mg/dL] 0.88 mg/dL (06/27/16 5:46 PM) eGFR 73 mL/min/1.73m2 1 *NA* (06/27/16 5:46 PM) BUN [7-22 mg/dL] 8 mg/dL (06/27/16 5:46 PM) Glucose Lvl [70-99 mg/dL] 90 mg/dL (06/27/16 5:46 PM) Calcium Lvl [8.5-10.5 mg/dL] 9.0 mg/dL (06/27/16 5:46 PM) Magnesium Lvl [1.8-2.4 mg/dL] 2.0 mg/dL (06/27/16 5:46 PM) 1Result Comment: The eGFR is calculated using the CKD-EPI formula. In most young , healthy individualsthe eGFR will be >90 mL/min/1.73m2. The eGFR declines with age. An eGFR of 60-89 may be normal in some populations, particularly the elderly, for whom the CKD-EPI formula has not been extensively validated. Use of the eGFR is not recommended in the following populations: Individuals with unstable creatinine concentrations, including patients and those with serious co-morbid conditions. Patients with extremes in muscle mass or diet. The data above are obtained from the National Kidney Disease Education Program ( NKDEP) which additionally recommends that when the eGFR is used in patients with extremes of body mass index for purposesof drug dosing, the eGFR should be multiplied by the estimated BMI.URINE AND STOOL Most recent to oldest [Reference Range]: 1 UA Turbidity [Clear] Clear (06/27/16 3:08 PM) UA Color [Yellow] Yellow *NA* (06/27/16 3:08 PM) UA pH [5.0-8.0] 7.5 (06/27/16 3:08 PM) UA Spec Grav [<=1.030] <=1.005 *NA* (06/27/16 3:08 PM) UA Glucose [Negative] Negative (06/27/16 3:08 PM) UA Blood [Negative] Negative (06/27/16 3:08 PM) UA Ketones [Negative] Negative *NA* (06/27/16 3:08 PM) UA Protein [Negative] Negative (06/27/16 3:08 PM) UA Urobilinogen [0.1-1.0 EU/dL] 0.2 EU/dL (06/27/16 3:08 PM) UA Bili [Negative] Negative *NA* (06/27/16 3:08 PM) UA Leuk Est [Negative] Negative (06/27/16 3:08 PM) UA Nitrite [Negative] Negative (06/27/16 3:08 PM) UA WBC [0-5] None Seen (06/27/16 3:08 PM) UA RBC [0-2 /HPF] 0-2 /HPF (06/27/16 3:08 PM) UA Bacteria [None Seen] None Seen (06/27/16 3:08 PM) UA Sq Epi [Few /LPF] Moderate /LPF *ABN* (06/27/16 3:08 PM) HEMATOLOGY Most recent to oldest [Reference Range]: 1 WBC [3.7-10.4 K/CMM] 6.4 K/CMM (06/27/16 5:46 PM) RBC [4.20-5.40 M/CMM] 4.65 M/CMM (06/27/16 5:46 PM) Hgb [12.0-16.0 g/dL] 14.2 g/dL (06/27/16 5:46 PM) Hct [36.0-48.0 %] 41.7 % (06/27/16 5:46 PM) MCV [80.0-98.0 fL] 89.7 fL (06/27/16 5:46 PM) MCH [27.0-31.0 pg] 30.6 pg (06/27/16 5:46 PM) MCHC [32.0-36.0 g/dL] 34.1 g/dL (06/27/16 5:46 PM) RDW [11.5-14.5 %] 14.3 % (06/27/16 5:46 PM) Platelet [133-450 K/CMM] 246 K/CMM (06/27/16 5:46 PM) MPV [7.4-10.4 fL] 7.9 fL (06/27/16 5:46 PM) Segs [45.0-75.0 %] 57.3 % (06/27/16 5:46 PM) Lymphocytes [20.0-40.0 %] 31.4 % (06/27/16 5:46 PM) Monocytes [2.0-12.0 %] 9.3 % (06/27/16 5:46 PM) Eosinophils [0.0-4.0 %] 1.2 % (06/27/16 5:46 PM) Basophils [0.0-1.0 %] 0.8 % (06/27/16 5:46 PM) Segs-Bands # [1.5-8.1 K/CMM] 3.7 K/CMM (06/27/16 5:46 PM) Lymphocytes # [1.0-5.5 K/CMM] 2.0 K/CMM (06/27/16 5:46 PM) Monocytes # [0.0-0.8 K/CMM] 0.6 K/CMM (06/27/16 5:46 PM) Eosinophils # [0.0-0.5 K/CMM] 0.1 K/CMM (06/27/16 5:46 PM) Basophils # [0.0-0.2 K/CMM] 0.1 K/CMM (06/27/16 5:46 PM) Immunizations No data available for this section Procedures Procedure Date Related Diagnosis Body Site Arthroplasty section1 Tonsillectomy 1X2 Social History Social History Type Response Smoking Status Never smoker; Exposure to Tobacco Smoke None; Cigarette Smoking Last 365 Days No; Reg Smoking Cessation Counseling No Assessment and Plan No data available for this section
--- OUTSIDE RECORDS SUMMARY | 2019-04-26 06:31 | XMS REPORT | Summary of Care ---
:[address] [facility] Address [address] [place], [place] [address]- Encounter HQ Encntr_lorna(FIN) [id number] Date(s): 03/03/17 - 03/03/17 [facility] [address] [place] [address]- Discharge Disposition: Home or Self Care Attending [...]
--- OUTSIDE RECORDS SUMMARY | 2019-04-26 06:31 | XMS REPORT | Summary of Care ---
:[address] [facility] [place] [place] Address [address] [address], [place] [address]- Encounter HQ Car_lorna(JOYCE) [id number] Date(s): 06/30/16 - 06/30/[address] [facility] [place] [address] [place] [address]- Discharge Disposition: Home or Self Care Attending Physician: Alvaro Jovel MD Vital Signs Most recent to oldest 1 2 3 [Reference Range]: Height 157.48 cm (06/22/16 2:11 PM) Temperature Oral [96.4-99.1 98.5 DegF DegF] (06/22/16 2:47 PM) Blood Pressure [90-140/60-90 113/61 mmHg 108/61 mmHg 130/69 mmHg mmHg] (06/30/16 9:45 AM) (06/30/16 9:15 AM) (06/30/16 9:00 AM) Respiratory Rate [14-20 BRMIN] 18 BRMIN 14 BRMIN 12 BRMIN (06/30/16 9:45 AM) (06/30/16 9:15 AM) *LOW* (06/30/16 9:00 AM) Peripheral Pulse Rate [60-100 80 bpm bpm] (06/22/16 2:47 PM) Weight 92.591 kg (06/22/16 2:11 PM) Body Mass Index 37.34 m2 (06/22/16 2:11 PM) Problem List Condition Effective Dates Status Health Status Informant Anxiety(Confirmed) Active Apnea, sleep(Confirmed) Active HTN - Hypertension(Confirmed) Resolved Pain in lower back(Confirmed) Resolved Allergies, Adverse Reactions, Alerts Substance Reaction Severity Status amoxicillin Active Medications acetaminophen-hydrocodone 325 mg-5 mg oral tablet 1 tab, Route: PO, Drug Form: TAB, Dosing Weight 90.455, kg, Q4H, PRN Pain Score 1-3, Start date: 06/30/16 8:40:00 CDT, Duration: 30 day, Stop date: 07/30/16 8: 39:00 CDT Notes: (Same as: [place] 325/5) Do not exceed 4gm/day of acetaminophen. Start Date: 06/30/16 Stop Date: 06/30/16 Status: Discontinuedacetaminophen-hydrocodone 325 mg-5 mg oral tablet 2 tab, Route: PO, Drug Form: TAB, Dosing Weight 90.455, kg, Q4H, PRN Pain Score 4-6, Start date: 06/30/16 8:40:00 CDT, Duration: 30 day, Stop date: 07/30/16 8: 39:00 CDT Notes: (Same as: [place] 325/5) Do not exceed 4gm/day of acetaminophen. Start Date: 06/30/16 Stop Date: 06/30/16 Status: DiscontinuedamLODIPine 10 mg oral tablet 10 mg=1 tab, PO, Daily, # 30 tab, 0 Refill(s) Start Date: 06/22/16 Status: OrderedANES acetaminophen 1,000 mg, Route: IVPB, Drug form: INJ, ONCE, Dosing Weight 90.455, kg, PRN Pain Score 1-3, Start date: 06/30/16 8:31:00 CDT, Duration: 1 doses or times, Stop date: Limited # of times Start Date: 06/30/16 Stop Date: 06/30/16 Status: DiscontinuedANES fentaNYL 50 microgram, Route: IVP, Q5Min, Dosing Weight 90.455, kg, PRN Pain Score 7-10, Start date: :31:00 CDT, Duration: 2 doses or times, Stop date: Limited # of times Start Date: 06/30/16 Stop Date: 06/30/16 Status: DiscontinuedANES fentaNYL 25 microgram, Route: IVP, Q5Min, Dosing Weight 90.455, kg, PRN Pain Score 4-6, Start date: 06/30/16 8:31:00 CDT, Duration: 4 doses or times, Stop date: Limited # of times Start Date: 06/30/16 Stop Date: 06/30/16 Status: DiscontinuedANES flumazenil 0.2 mg, Route: IVP, PRN, Dosing Weight 90.455, kg, PRN Benzodiazepine Reversal, Initial dose, Start date: 06/30/16 8:31:00 CDT, Duration: 30 day, Stop date: 8:30:00 CDT Start Date: 06/30/16 Stop Date: 06/30/16 Status: DiscontinuedANES HYDROmorphone 0.5 mg, Route: IVP, Q5Min, Dosing Weight 90.455, kg, PRN Pain Score 7-10, Start date: 06/30/16 8:31:00 CDT, Duration: 4 doses or times, Stop date: Limited # of times Start Date: 06/30/16 Stop Date: 06/30/16 Status: DiscontinuedANES labetalol 10 mg, Route: IVP, Q5Min, Dosing Weight 90.455, kg, PRN Elevated BP, Start date : 06/30/16 8:31:00 CDT, Duration: 5 doses or times, Stop date: Limited # of times Start Date: 06/30/16 Stop Date: 06/30/16 Status: DiscontinuedANES naloxone 0.4 mg, Route: IVP, Q2MIN, Dosing Weight 90.455, kg, PRN Narcotic Reversal, Start date: 06/30/16 8:31:00 CDT, Duration: 8 doses or times, Stop date: Limited # of times Start Date: 06/30/16 Stop Date: 06/30/16 Status: DiscontinuedANES ondansetron 4 mg, Route: IVP, ONCE, Dosing Weight 90.455, kg, PRN Nausea & Vomiting, Start date: 06/30/16 8:31:00 CDT Start Date: 06/30/16 Stop Date: 06/30/16 Status: CompletedANES oxyCODONE 10 mg, Route: PO, Drug form: TAB, Q4H, Dosing Weight 90.455, kg, PRN Pain Score 7-10, Start date: 06/30/16 8:31:00 CDT, Duration: 30 day, Stop date: 07/30/16 8: 30:00 CDT Start Date: 06/30/16 Stop Date: 06/30/16 Status: DiscontinuedANES oxyCODONE 5 mg, Route: PO, Drug form: TAB, Q4H, Dosing Weight 90.455, kg, PRN Pain Score 4 -6, Start date: 06/30/16 8:31:00 CDT, Duration: 30 day, Stop date: 07/30/16 8:30 :00 CDT Start Date: 06/30/16 Stop Date: 06/30/16 Status: Discontinuedaspirin 81 mg tablet, enteric coated 81 mg=1 tab, PO, Daily, *LAST DOSE 06/22/16 AM*, # 90 tab, 3 Refill(s) Start Date: 06/22/16 Status: OrderedfentaNYL (ANES) Route: IV, Drug form: INJ, ONCE, Stop date: 06/30/16 8:17:00 CDT Start Date: 06/30/16 Stop Date: 06/30/16 Status: Completedhydrochlorothiazide-losartan 25 mg-100 mg oral tablet 1 tab, PO, Daily, # 30 tab, 0 Refill(s) Start Date: 06/22/16 Status: OrderedketOROLAC (ANES) IV, ONCE Start Date: 06/30/16 Stop Date: 06/30/16 Status: CompletedLactated Ringers Injection IV 1000 mL 1,000 mL, Rate: 25 ml/hr, Infuse over: 40 hr, Route: IV, Dosing Weight 90.455 kg , Total Volume: 1,000, Start date: 06/30/16 7:07:00 CDT, Duration: 30 day, Stop date: 07/30/16 7:06:00 CDT Start Date: 06/30/16 Stop Date: 06/30/16 Status: DiscontinuedLevaquin 750 mg, 150 mL, Route: IVPB, Drug form: SOLN, ONCALL, Start date: 06/30/16 7:00: 00 CDT, Duration: 1 doses or times Notes: (Same as:Levaquin) Start Date: 06/30/16 Stop Date: 06/30/16 Status: Discontinuedlevofloxacin (ANES) Route: IV, Drug form: INJ, ONCE, Stop date: 06/30/16 8:17:00 CDT Start Date: 06/30/16 Stop Date: 06/30/16 Status: Completedlidocaine (ANES) Route: IV, Drug form: INJ, ONCE, Stop date: 06/30/16 8:27:00 CDT Start Date: 06/30/16 Stop Date: 06/30/16 Status: CompletedLR 1000 mL INJ (ANES) Route: IV, Total Volume: 1,000, Start date: 06/30/16 7:32:00 CDT, Stop date: 8:32:00 CDT Start Date: 06/30/16 Stop Date: 06/30/16 Status: CompletedmetroNIDAZOLE (ANES) Route: IV, Drug form: INJ, ONCE, Stop date: 06/30/16 8:17:00 CDT Start Date: 06/30/16 Stop Date: 06/30/16 Status: Completedmidazolam (ANES) Route: IV, Drug form: SOLN, ONCE, Stop date: 06/30/16 8:07:00 CDT Start Date: 06/30/16 Stop Date: 06/30/16 Status: Completedmoxifloxacin 400 mg, Route: IVPB, ONCALL, Dosing Weight 90.455, kg, Start date: 06/30/16 7:30 :00 CDT Start Date: 06/30/16 Stop Date: 06/30/16 Status: Deletedondansetron (ANES) Route: IV, Drug form: INJ, ONCE, Stop date: 06/30/16 8:17:00 CDT Start Date: 06/30/16 Stop Date: 06/30/16 Status: Completedpotassium chloride 10 mEq oral tablet, extended release 10 mEq=1 tab, PO, Daily, 0 Refill(s) Start Date: 06/30/16 Status: Orderedpravastatin 20 mg oral tablet 20 mg=1 tab, PO, Bedtime, # 30 tab, 0 Refill(s) Start Date: 06/22/16 Status: Orderedpropofol (ANES) Route: IV, Drug form: INJ, ONCE, Stop date: 06/30/16 8:27:00 CDT Start Date: 06/30/16 Stop Date: 06/30/16 Status: Completedscopolamine 1.5 mg transdermal film 1 patch, Route: TOP, Drug Form: ERFILM, Dosing Weight 90.455, kg, PRE OP, Start date: 06/30/16 8:00:00 CDT, Duration: 30 day, Stop date: 07/30/16 7:59:00 CDT Start Date: 06/30/16 Stop Date: 06/30/16 Status: Completedvenlafaxine 37.5 mg oral capsule, extended release 37.5 mg=1 cap, PO, Daily, # 30 cap, 0 Refill(s) Start Date: 06/22/16 Status: Orderedzolpidem 10 mg oral tablet 10 mg=1 tab, PO, Bedtime, PRN for sleep, # 14 tab, 0 Refill(s) Start Date: 06/22/16 Stop Date: 07/06/16 Status: Ordered Results BLOOD BANK RESULTS Most recent to oldest [Reference Range]: 1 2 ABO/Rh O POS *Unknown* (06/22/16 2:26 PM) Antibody Scrn Negative (06/22/16 2:26 PM) ELECTROLYTES Most recent to oldest [Reference Range]: 1 2 Sodium Lvl [135-145 mEq/L] 140 mEq/L (06/22/16 2:26 PM) Potassium Lvl [3.5-5.1 mEq/L] 3.4 mEq/L 2.7 mEq/L 1 *LOW* *CRIT* (06/30/16 6:19 AM) (06/22/16 2:26 PM) Chloride Lvl [95-109 mEq/L] 100 mEq/L (06/22/16 2:26 PM) CO2 [24-32 mEq/L] 31 mEq/L (06/22/16 2:26 PM) AGAP [10.0-20.0 mEq/L] 11.7 mEq/L (06/22/16 2:26 PM) 1Result Comment: Critical Result(s) called to Uyen Pérez at 06/22/2016 15: 51_ by_AN. Read back OK.CHEM PANEL Most recent to oldest [Reference Range]: 1 2 Creatinine Lvl [0.50-1.40 mg/dL] 0.94 mg/dL (06/22/16 2:26 PM) eGFR 68 mL/min/1.73m2 1 *NA* (06/22/16 2:26 PM) BUN [7-22 mg/dL] 15 mg/dL (06/22/16 2:26 PM) B/C Ratio [6-25] 16 (06/22/16 2:26 PM) Glucose Lvl [70-99 mg/dL] 87 mg/dL (06/22/16 2:26 PM) Total Protein [6.4-8.4 g/dL] 7.0 g/dL (06/22/16 2:26 PM) Albumin Lvl [3.5-5.0 g/dL] 3.4 g/dL *LOW* (06/22/16 2:26 PM) Globulin [2.7-4.2 g/dL] 3.6 g/dL (06/22/16 2:26 PM) A/G Ratio [0.7-1.6] 0.9 (06/22/16 2:26 PM) Calcium Lvl [8.5-10.5 mg/dL] 9.0 mg/dL (06/22/16 2:26 PM) ALT [0-65 unit/L] 27 unit/L (06/22/16 2:26 PM) AST [0-37 unit/L] 17 unit/L (06/22/16 2:26 PM) Alk Phos [39-136 unit/L] 62 unit/L (06/22/16 2:26 PM) Bili Total [0.2-1.3 mg/dL] 0.5 mg/dL (06/22/16 2:26 PM) 1Result Comment: The eGFR is calculated [...] eGFR should be multiplied by the estimated BMI.HEMATOLOGY Most recent to oldest [Reference Range]: 1 2 WBC [3.7-10.4 K/CMM] 5.7 K/CMM (06/22/16 2:26 PM) RBC [4.20-5.40 M/CMM] 4.56 M/CMM (06/22/16 2:26 PM) Hgb [12.0-16.0 g/dL] 13.9 g/dL (06/22/16 2:26 PM) Hct [36.0-48.0 %] 41.2 % (06/22/16 2:26 PM) MCV [80.0-98.0 fL] 90.4 fL (06/22/16 2:26 PM) MCH [27.0-31.0 pg] 30.5 pg (06/22/16 2:26 PM) MCHC [32.0-36.0 g/dL] 33.8 g/dL (06/22/16 2:26 PM) RDW [11.5-14.5 %] 14.0 % (06/22/16 2:26 PM) Platelet [133-450 K/CMM] 203 K/CMM (06/22/16 2:26 PM) MPV [7.4-10.4 fL] 8.3 fL (06/22/16 2:26 PM) Segs [45.0-75.0 %] 58.8 % (06/22/16 2:26 PM) Lymphocytes [20.0-40.0 %] 29.2 % (06/22/16 2:26 PM) Monocytes [2.0-12.0 %] 9.8 % (06/22/16 2:26 PM) Eosinophils [0.0-4.0 %] 1.5 % (06/22/16 2:26 PM) Basophils [0.0-1.0 %] 0.7 % (06/22/16 2:26 PM) Segs-Bands # [1.5-8.1 K/CMM] 3.4 K/CMM (06/22/16 2:26 PM) Lymphocytes # [1.0-5.5 K/CMM] 1.7 K/CMM (06/22/16 2:26 PM) Monocytes # [0.0-0.8 K/CMM] 0.6 K/CMM (06/22/16 2:26 PM) Eosinophils # [0.0-0.5 K/CMM] 0.1 K/CMM (06/22/16 2:26 PM) PT [12.0-14.7 seconds] 12.9 seconds (06/22/16 2:26 PM) INR [0.85-1.17] 0.94 (06/22/16 2:26 PM) PTT [22.9-35.8 seconds] 26.7 seconds (06/22/16 2:26 PM) Immunizations No data available for this section Procedures Procedure Date Related Diagnosis Body Site Arthroplasty section1 Tonsillectomy 1X2 Social History Social History Type Response Smoking Status Never smoker; Exposure to Tobacco Smoke None; Cigarette Smoking Last 365 Days No; Reg Smoking Cessation Counseling No Assessment and Plan No data available for this section
--- OUTSIDE RECORDS SUMMARY | 2019-04-26 06:31 | XMS REPORT | Encounter Summary ---
:1955 Author Reason for Visit Medical Complaint; right pink eye x 1 day Instructions 1. Bacterial conjunctivitis adenovirus Ag, Immunoassay Vigamox 0.5 % eye drops pinkeye: care instructions Discussion Note take charge of your health provided to pt with education and questions answered Plan of Care Reminders Provider Appointments None recorded. Lab Adenovirus Ag, [facility] Immunoassay 05/18/2016 Referral None recorded. Procedures None recorded. Surgeries None recorded. Imaging None recorded. Medications Name Start Date amlodipine 10 mg tablet losartan 100 mg-hydrochlorothiazide 25 mg tablet pravastatin 20 mg tablet Vigamox 0.5 % eye drops INSTILL 1 DROP INTO RIGHT EYE BY OPHTHALMIC ROUTE 3 TIMES PER DAY x 7 DAYS zolpidem 10 mg tablet Medications Administered None recorded. Vitals Height Weight BMI Blood Pressure 5 ft 2 in 205 lbs 37.5 118/76 Lab Results Date Name Result Description Value Range Status Adenovirus Ag, Result negative Immunoassay Swab Location Right Conjunctiva Allergies Name Reaction Severity Onset Amoxicillin Rash Problems Name Status Onset Date Source Bacterial Conjunctivitis Active Encounter Procedures None recorded. Vaccine List Vaccine Type influenza, seasonal, injectable 08/14/2015 Social History Smoking Status Never Smoker Past Encounters 05/18/2016 Bacterial Conjunctivitis AIDE [facility]: [address] [place] [address], Ph. History of Present Illness Eye Complaint Reported By: Patient HPI: Location: right. Severity: no pain. Duration actual date 1. Onset/Timing: first episode. Context no previous history of Iritis, no one else with similar symptoms, sick contact/pink eye exposure. Modifying factors ; took old rx of tamiflu, artifical tears. Associated Symptoms: vision intact, no sensitivity to light, no foreign body sensation in eyes, no pain in the eyes, no pain with eye movement, mucous discharge from the eyes, matting/drainage Review of Systems Basic Reported By: Patient Constitutional: Constitutional: no fever Eyes: Eyes: irritation Hoxu-Gxmx-Nvurk-Throat: Ears: no ear complaints. Nose: no nose/sinus problems. Mouth/Throat: no sore throat, no bleeding gums, no mouth complaints, no teeth problems Cardiovascular: Cardiovascular: no chest pain, no shortness of breath, no known heart murmur Respiratory: Respiratory: no cough, no wheezing, no shortness of breath Skin: Skin: no abnormal / changing mole, no jaundice, no rashes Neurologic: Neurologic: no loss of consciousness, no weakness, no numbness, no seizures, no dizziness, no headaches Physical Exam Adult Basic Constitutional: General Appearance: healthy-appearing, well-nourished, well-developed. Level of Distress: NAD. Ambulation: ambulating normally Psychiatric: Mental Status: active and alert. Orientation: to time, to place, to person Eyes: Lids and Conjunctivae: non-injected, no discharge, no pallor; right conjunctiva erythematous with yellowish discharge present. Pupils: PERRLA. Corneas: grossly intact. EOM: EOMI. Lens: clear. Sclerae: non-icteric. Vision: acuity grossly intact Tkm-Fbwx-Hgvkw-Throat: Ears: no lesions on external ear, no outer ear tenderness, EACs clear, TMs clear. Hearing: no hearing loss. Nose: no lesions on external nose, nares patent, no septal deviation, nasal passages clear, no sinus tenderness, post nasal drip. Lips, Teeth, and Gums: no mouth or lip ulcers, no bleeding gums, normal dentition. Oropharynx: moist mucous membranes, no erythema, no exudates, tonsils not enlarged Neck: Neck: supple, trachea midline, no masses, FROM. Lymph Nodes: no cervical LAD, no supraclavicular LAD, no axillary LAD, no inguinal LAD. Thyroid: no enlargement, non-tender, no nodules Lungs: Respiratory effort: no dyspnea, no tachypnea, no use of accessory muscles, no intercostal retractions. Percussion: no dullness, flatness, or hyperresonance. Auscultation: breath sounds normal Cardiovascular: Heart Auscultation: RRR, no murmurs Skin: Inspection and palpation: no rash, no lesions, no ulcer, no abnormal nevi, no induration, no nodules, good turgor, no jaundice
--- OUTSIDE RECORDS SUMMARY | 2019-04-26 06:31 | XMS REPORT | Summary of Care ---
:1955 Author Organization [facility] [place] Address [address] [place] [address]- Encounter HQ Encntr_alias(FIN) [id number] Date(s): 06/12/16 - 06/12/16 [facility] [place] [address] [place] [address], [address] [place] [address]- [phone] Discharge Disposition: Home or Self Care Attending Physician: Jose C Meraz MD Vital Signs No data available for [...]
--- OUTSIDE RECORDS SUMMARY | 2019-04-26 06:32 | XMS REPORT | Summary of Care ---
:1955 Author Organization [facility] Address [address] [place] [address] Care Team Providers Name Role Phone JERSEY Allen, JARAD Unavailable Unavailable JULIANE Allen, CLIFTON Unavailable Unavailable CLIFFORD N.P., ALBERT Unavailable Unavailable RHEA DO SC, ABUNDIO Unavailable Unavailable Jersey ROSEN, Jarad Unavailable Unavailable JULIANE ROSEN SC, CLIFTON Unavailable Unavailable Unavailable Unavailable Unavailable Functional Status Name Dates Details Functional status health issues are not documented Status: Name Dates Details Cognitive status health issues are not documented Status: Problems Name Dates Details Normal routine physical examination (V70.0, Z00.00) Status: Active Normal routine physical examination (V70.0, Z00.00) Status: Active Sinusitis (473.9, J32.9) Status: Active Fatigue (780.79, R53.83) Status: Active Impaired fasting glucose (790.21, R73.01) Status: Active Obstructive sleep apnea (327.23, G47.33) Status: Active Skin lesion of chest wall (709.9, L98.9) Status: Active Motion sickness (994.6, T75.3XXA) Status: Active Obesity (278.00, E66.9) Status: Active Staph infection (041.10, B95.8) Status: Active Allergic rhinitis (477.9, J30.9) Status: Active Post-menopausal bleeding (627.1, N95.0) Status: Active Post-operative state (V45.89, Z98.890) Status: Active Elevated blood pressure (not hypertension) (796.2, R03.0) Status: Active Low back pain (724.2, M54.5) Status: Active Screening for breast cancer (V76.10, Z12.31) Status: Active Lower abdominal pain (789.09, R10.30) Status: Active Urine frequency (788.41, R35.0) Status: Active Abdominal pain, chronic, left lower quadrant (789.04, R10.32) Status: Active GERD (gastroesophageal reflux disease) (530.81, K21.9) Status: Active Abnormal laboratory test result (796.4, R89.9) Status: Active Hyperglycemia (790.29, R73.9) Status: Active Ketonuria (791.6, R82.4) Status: Active Suprapubic pain (789.09, R10.2) Status: Active Acute upper respiratory infection (465.9, J06.9) Status: Active Hyperlipidemia (272.4, E78.5) Status: Active Insomnia (780.52, G47.00) Status: Active Hypokalemia (276.8, E87.6) Status: Active Vaginal atrophy (627.3, N95.2) Status: Active Dyspareunia, female (625.0, N94.10) Status: Active Benign hypertension (401.1, I10) Status: Active Flu vaccine need (V04.81, Z23) Status: Active Well woman exam (V72.31, Z01.419) Status: Active Alcoholism, chronic (303.90, F10.20) Status: Active Anxiety (300.00, F41.9) Status: Active Depression (311, F32.9) Status: Active Medications Name Dates Details Pravastatin Sodium 20 MG Oral Tablet TAKE 1 TABLET BY MOUTH DAILY. Quantity: 90 Refills: 0 JARAD PUTNAM M.D. Start : 07-Feb-2018 Active Multi Vitamin/Minerals Oral Tablet TAKE 1 TABLET DAILY. Refills: 0 Active AmLODIPine Besylate 10 MG Oral Tablet TAKE 1 TABLET BY MOUTH DAILY DIRECTED. Quantity: 90 Refills: 1 JARAD PUTNAM M.D. Start : 27-Dec-2017 Active Zolpidem Tartrate 10 MG Oral Tablet TAKE 1/2 TABLET AT BEDTIME NEEDED FOR SLEEP. Quantity: 30 Refills: 2 CLIFTON CARDOZO M.D. Start : 01-Apr-2015 Active Estradiol 0.1 MG/GM Vaginal Cream INSERT 1/4 APPLICATORFUL (1GM) VAGINALLY THREE TIMES WEEKLY. Quantity: 1 Refills: 0 CLIFFORD N.PALBERT Blount Start : 03-Dec-2017 Active 42.5 GM Tube Venlafaxine HCl - 37.5 MG Oral Tablet TAKE 1 TABLET BY MOUTH DAILY. Quantity: 30 Refills: 1 JARAD PUTNAM M.D. Start : 18-Jan-2018 Active Naltrexone HCl - 50 MG Oral Tablet TAKE 1 TABLET ONCE DAILY. Quantity: 30 Refills: 1 JULIANE AllenCLIFTON Start : 12-Jan-2018 Active Allergies and Adverse Reactions Name Dates Details Penicillins (Allergy) Status: Active Past Medical History Name Dates Details History of essential hypertension (V12.59, Z86.79) Status: Resolved History of hyperlipidemia (V12.29, Z86.39) Status: Resolved History of Multiparity (V61.5, Z64.1) Status: Resolved Procedures Procedure Dates Details History of Tonsillectomy Completed History of Section Completed History of Knee Surgery Left Completed 30-Jan-2015 History of Dilation And Curettage Completed 30-Jun-2016 Immunization Name Dates Details Hepatitis A on: 26-Dec-2012 Hepatitis B on: 26-Dec-2012 Influenza on: 12-Sep-2013 Lot #: [id number] Influenza on: 09-Oct-2015 Lot #: [id number] Tenivac 5-2 LFU Intramuscular Injectable on: 21-Jul-2017 Fluzone Quadrivalent 0.5 ML Intramuscular Suspension on: 21-Dec-2017 Lot #: [id number] Family History Name Dates Details Family history of Cancer Comments: Family History Status: Active Family history of Diabetes Mellitus (V18.0) Comments: Family History Status: Active Family history of Hypertension (V17.49) Comments: Family History Status: Active Name Dates Details Family history of malignant neoplasm of urinary bladder (V16.52, Z80.52) Status: Active Social History Name Dates Details - Status: Name Dates Details Never smoker Vital Signs Date Test Result Details No Known Vitals to report Results Date Description Value Details Results not documented Plan of Care Name Dates Details Planned Observations Planned Goals not documented Planned Encounters Appointment; BLANCA HARRINGTON LCSW On: 22-Feb-2018 10:00 Instructions Name Dates Details Instructions not documented Encounters Appointment; YONG ARROYO M.D. On: 23-Mar-2016 11:00 Encounter Diagnosis: Problem not documented Appointment; YONG ARROYO M.D. On: 29-Apr-2016 9:30 Encounter Diagnosis: Problem not documented Appointment; JIM DAVIS NP On: 20-May-2016 13:15 Encounter Diagnosis: Problem not documented Appointment; CJ CLIFFORD NP On: 12-Jun-2016 13:30 Encounter Diagnosis: Problem not documented Appointment; PILI CASTILLO M.D. On: 15-Jun-2016 10:00 Encounter Diagnosis: Problem not documented Appointment; JARAD PUTNAM M.D. On: 23-Jun-2016 10:15 Encounter Diagnosis: Problem not documented Appointment; PILI CASTILLO M.D. On: 13-Jul-2016 11:20 Encounter Diagnosis: Problem not documented Appointment; JARAD PUTNAM M.D. On: 21-Jul-2016 10:00 Encounter Diagnosis: Problem not documented Appointment; JARAD PUTNAM M.D. On: 11-Aug-2016 10:00 Encounter Diagnosis: Problem not documented Appointment; JARAD PUTNAM M.D. On: 23-Sep-2016 10:30 Encounter Diagnosis: Problem not documented Appointment; JARAD PUTNAM M.D. On: 29-Dec-2016 11:00 Encounter Diagnosis: Problem not documented Appointment; PILI CASTILLO M.D. On: 18-Jan-2017 11:20 Encounter Diagnosis: Problem not documented Appointment; ABUNDIO WILKERSON D.O. On: 08-Jun-2017 16:15 Encounter Diagnosis: Problem not documented Appointment; GILEBRTO ORELLANA M.D. On: 11-Jun-2017 12:45 Encounter Diagnosis: Problem not documented Appointment; JARAD PUTNAM M.D. On: 29-Jun-2017 11:00 Encounter Diagnosis: Problem not documented Appointment; ABUNDIO WILKERSON D.O. On: 27-Sep-2017 9:45 Encounter Diagnosis: Problem not documented Appointment; JARAD PUTNAM M.D. On: 23-Nov-2017 13:30 Encounter Diagnosis: Problem not documented Appointment; JARAD PUTNAM M.D. On: 21-Dec-2017 9:15 Encounter Diagnosis: Problem not documented Appointment; PILI CASTILLO M.D. On: 10-Jan-2018 11:40 Encounter Diagnosis: Problem not documented Appointment; CLIFTON CARDOZO M.D. On: 12-Jan-2018 11:00 Encounter Diagnosis: Problem not documented
--- OUTSIDE RECORDS SUMMARY | 2019-04-26 06:32 | XMS REPORT | Encounter Summary ---
:1955 Author Reason for Visit Medical Complaint; sore throat and headache x 4 days Instructions 1. Acute pharyngitis rapid strep group A, throat azithromycin 250 mg tablet sore throat: care instructions throat culture: about this test culture, throat 2. Posterior rhinorrhea Discussion Note take charge of your health provided to pt with education and questions answered Plan of Care Reminders Provider Appointments None recorded. Lab Rapid Strep 06/07/2016 [facility], Throat Culture, 06/07/2016 [facility] Throat Referral None recorded. Procedures None recorded. Surgeries None recorded. Imaging None recorded. Medications Name Start Date amlodipine 10 mg tablet azithromycin 250 mg tablet TAKE 2 TABLETS (500 MG) BY ORAL ROUTE ONCE DAILY FOR 1 DAY THEN 1 TABLET (250 MG) BY ORAL ROUTE ONCE DAILY FOR 4 DAYS losartan 100 mg-hydrochlorothiazide 25 mg tablet TAKE 1 TABLET ONCE DAILY.NEEDS OFFICE VISIT WITH NEW PCP pravastatin 20 mg tablet TAKE 1 TABLET BY MOUTH DAILY. NEEDS NEW PCP zolpidem 10 mg tablet Medications Administered None recorded. Vitals Height Weight BMI Blood Pressure 5 ft 2 in 205 lbs 37.5 118/67 Lab Results Date Name Result Description Value Range Status Adenovirus Ag, Result negative Immunoassay Swab Location Right Conjunctiva Rapid Strep Group a, Result negative Throat Swab Location Left and Right tonsillar pillars Allergies Name Reaction Severity Onset Amoxicillin Rash Problems Name Status Onset Date Source Bacterial Conjunctivitis Active Encounter Acute Pharyngitis Active Encounter Posterior Rhinorrhea Active Encounter Procedures None recorded. Vaccine List Vaccine Type influenza, seasonal, injectable 08/14/2015 Social History Smoking Status Never Smoker Past Encounters 06/07/2016 Acute Pharyngitis; Posterior Rhinorrhea Neha Garcia PA-C: [address] [place] [address], Ph. [phone] 05/18/2016 Bacterial Conjunctivitis Neha Garcia PA-C: [address] [place] [address], Ph. History of Present Illness Throat-Oral Complaint Reported By: Patient HPI: Location: throat. Quality: sore throat. Duration: 4 days. Onset/Timing: gradual. Context: no sick contacts, no foreign travel, non-smoker. Modifying factors: OTC medication. Associated Symptoms: no sputum production, no shortness of breath, no wheezing, no change in number of pillows needed to sleep at night, no sweats, no significant weight gain, no significant weight loss, no morning cough, no vomiting, no diarrhea, no rash, no nausea, sore throat Review of Systems Basic Reported By: Patient Constitutional: Constitutional: no fever Eyes: Eyes: no eye complaints Wrfu-Cjqb-Yqdlh-Throat: Ears: no ear complaints. Nose: no nose/sinus problems. Mouth/Throat: no bleeding gums, no mouth complaints, no teeth problems, sore throat Cardiovascular: Cardiovascular: no chest pain, no shortness of breath, no known heart murmur Respiratory: Respiratory: no cough, no wheezing, no shortness of breath Skin: Skin: no abnormal / changing mole, no jaundice, no rashes Neurologic: Neurologic: no loss of consciousness, no weakness, no numbness, no seizures, no dizziness, headache Physical Exam Adult Basic Constitutional: General Appearance: healthy-appearing, well-nourished, well-developed. Level of Distress: NAD. Ambulation: ambulating normally Psychiatric: Mental Status: active and alert. Orientation: to time, to place, to person Eyes: Lids and Conjunctivae: non-injected, no discharge, no pallor. Pupils: PERRLA. Corneas: grossly intact. EOM: EOMI. Lens: clear. Sclerae: non-icteric. Vision: acuity grossly intact Rrf-Oayl-Uhoxs-Throat: Ears: no lesions on external ear, no outer ear tenderness, EACs clear, TMs clear. Hearing: no hearing loss. Nose: no lesions on external nose, nares patent, no septal deviation, nasal passages clear, no sinus tenderness, post nasal drip. Lips, Teeth, and Gums: no mouth or lip ulcers, no bleeding gums, normal dentition. Oropharynx: moist mucous membranes, no exudates, tonsils not enlarged, erythema Neck: Neck: supple, trachea midline, no masses, FROM. Lymph Nodes: no supraclavicular LAD, no axillary LAD, no inguinal LAD, anterior cervical LAD. Thyroid: no enlargement, non-tender, no nodules Lungs: Respiratory effort: no dyspnea, no tachypnea, no use of accessory muscles, no intercostal retractions. Percussion: no dullness, flatness, or hyperresonance. Auscultation: breath sounds normal Cardiovascular: Heart Auscultation: RRR, no murmurs Neurologic: Gait and Station: normal gait, normal station Skin: Inspection and palpation: no rash, no lesions, no ulcer, no abnormal nevi, no induration, no nodules, good turgor, no jaundice
--- OUTSIDE RECORDS SUMMARY | 2019-04-26 06:32 | XMS REPORT ---
:1955 [facility] Address [address] [place] [address] Dr. Kruger [address] [place] [id number] Care Team Providers Name Role Phone Unavailable Unavailable Unavailable Problems This patient has no known problems. Allergies, Adverse Reactions, Alerts This patient has no known allergies or adverse reactions. Medications This patient has no known medications. Encounters Start End Encounter Admission Attending Care Care Encounter Date/Time Date/Time Type Type Clinicians Facility Department ID 2019-03-28 2019-03-28 Outpatient [facility] [id number] 07:26:00 07:26:00
[2019-04-26] MEDS ORDERED: Ringers Lactate 1,000 ML IV ONE ×2 (06:58→10:02)
[2019-04-26] MEDS ORDERED: SCOPOLAMINE HYDROBROMIDE PATCH TD ONE (06:58)
[2019-04-26] MEDS ORDERED: PROPOFOL 200 MG/20 ML VIAL IV ONE (07:46)
[2019-04-26] MEDS ORDERED: GLYCOPYRROLATE 0.2 MG/ML SYR ONE ×2 (07:47→09:03)
[2019-04-26] MEDS ORDERED: MIDAZOLAM HCL 2 MG/2 ML INJ ONE (07:47)
[2019-04-26] MEDS ORDERED: FENTANYL CITR 250 MCG/5 ML ONE (07:48)
[2019-04-26] MEDS ORDERED: LIDOCAINE 2% MPF 5 ML VIAL ONE (07:48)
[2019-04-26] MEDS ORDERED: ONDANSETRON 4 MG/2 ML VIAL ONE ×2 (07:50→10:02)
[2019-04-26] MEDS ORDERED: NEOSTIGMINE 1 MG/ML -10 ML VIAL ONE (07:50)
[2019-04-26] MEDS ORDERED: ROCURONIUM 50 MG/5 ML VIAL IV ONE (07:51)
[2019-04-26] MEDS ORDERED: CIPROFLOXACIN 400mg IV 400 MG/200 ML BAG IV ONE (08:11)
[2019-04-26] MEDS ORDERED: EPHEDRINE SULF 50 MG/ML VIAL ONE (08:39)
--- NOTE | 2019-04-26 09:52 | P.BOP ---
Preoperative diagnosis: Acute cholecystitis, Symptomatic cholelithiasis, tender umbilical hernia Postoperative diagnosis: same Primary procedure: 1. Laparoscopic cholecystectomy Secondary procedure: 2. Open repair of tender incarcerated umbilical hernia Janitor Caretaker: Angelique Nelson) Estimated blood loss: <10cc Specimen: hernia sac, GB Findings: incarcerated omentum Anesthesia: General Complications: None Transferred to: Recovery Room Condition: Good
[2019-04-26] MEDS ORDERED: CODEINE 30MG/APAP 300MG TAB ONE (10:02)
--- NOTE | 2019-05-01 13:01 | OP ---
Date of Procedure: 04/26/2019 Surgeon: Andrea Ba MD Waterproof Coating Machine Tender: JOSÉ LUIS Vela. Preoperative Diagnoses: Acute cholecystitis, symptomatic cholelithiasis, tender umbilical hernia. Postoperative Diagnoses: Acute cholecystitis, symptomatic cholelithiasis, tender umbilical hernia. Procedure: 1.Laparoscopic cholecystectomy. 2.Open repair of a tender incarcerated umbilical hernia. Anesthesia: General plus local. Indications: This is a case of a 63-year-old patient with above diagnosis. Fully explained the bene fits, alternatives and risks of laparoscopic, possible open cholecystectomy and repair of an incarcer ated tender umbilical hernia with benefits, alternatives, and risks including, but not limited to inf ection, bleeding, damage to adjacent structures, anesthesia complication, recurrence, SD, and even de ath. She also understands this may not relieve any symptoms. She might need more than one surgical intervention. She also understands damage to adjacent structures, anesthesia complication, common bi le duct injury, leak, pancreatitis, SD, even . She understood and signed a consent. The patien t understands the importance of no heavy lifting and not gaining weight. The patient was brought to the operating room, placed in supine position. Anesthesia was done without complication. A time-out was called. Abdomen was prepped and draped in usual sterile fashion. Local anesthetic was applied followed by sharp incision of the skin in the infraumbilical region. Incision was carried down to fa scia, which was opened. We noticed umbilical hernia to be present. Umbilical sac was carefully diss ected free. Umbilical sac was removed. After removal of adhesions of omentum of the hernia sac, we proceeded to reduce back into the abdominal cavity. Fully inspected with no bleeding. Hernia sac wa s removed. The incision was opened to accommodate trocars. Vicryl #1 placed inside the fascia. Has son trocar was carefully introduced. Pneumoperitoneum was obtained. I placed 3 more trocars, 5 mm e ach one of them, 1 in the epigastric area 2 in the right upper quadrant using same technique under di rect visualization. This allowed me to put a grasper in the fundus of the gallbladder, another grasp er in the infundibulum, retracted the gallbladder in the inferolateral fashion exposing the triangle of Calot and obtaining critical view of safety. Cystic duct and cystic artery were clearly isolated f ree circumferentially and a connection between those and the gallbladder were clearly identified. I proceeded to ligate those by using at least 3 clips proximal, 1 clip distal, ligation in middle. Mathew e was done with the cystic artery. No bile leak. No bleeding. The gallbladder was removed from paul er using Bovie cauterizer and removed from abdominal cavity using EndoCatch through the umbilical inc ision. The area was inspected once again. No bile leak. No bleeding. At that moment, I proceeded to remove the trocars under direct vision. Deflated the pneumoperitoneum. Closed the fascia and the umbilical hernia with #1 Vicryl, interrupted. Irrigated subcu tissues, closed that with 3-0 chromic and the skin was approximated. Sponge count, instrument counts were correct. The patient tolerated the procedure well. The patient was sent to recovery in stable condition. MIGUEL ANGEL/JONO Voice ID: [id number] Report ID: [id number]
== END 2019-04-26 11:45 | disposition home or self-care (01) ==
LOC: OR 06:20
PROVIDERS: ATTEND Surgery
PROC: 0FT44ZZ Resection of Gallbladder, Percutaneous Endoscopic Approach (ICD-10-PCS; principal; 2019-04-26 08:15)
PROC: 0WQF0ZZ Repair Abdominal Wall, Open Approach (ICD-10-PCS; 2019-04-26 08:15)
DX: K80.10 Calculus of gallbladder with chronic cholecystitis without obstruction (principal); K42.0 Umbilical hernia with obstruction, without gangrene; K66.0 Peritoneal adhesions (postprocedural) (postinfection); I10 Essential (primary) hypertension; Z79.82 Long term (current) use of aspirin; Z79.899 Other long term (current) drug therapy
CPT/HCPCS: 36415; 71046; 80048; 80076; 82150; 83690; 85025; 88302; 88304; 93005; J0744; J2250; J2405; J2704; J2710; J3010

== ENCOUNTER 2022-04-05 12:44 | Emergency (ER) | payer BC ==
--- OUTSIDE RECORDS SUMMARY | 2022-04-05 12:46 | XMS REPORT | Clinical Summary ---
:1955 Author Organization [facility] MD [facility] Address [address] [place] [address] Care Team Providers Name Role Phone MD Tommy Primary Care Provider Nishi Gallardo Unavailable MD Tommy Unavailable Allergies Active Allergy Reactions Severity Noted Date Comments Amoxicillin 02/24/2000 Medications Medication Sig Dispensed Refills Start Date End Date Status amLODIPine (NORVASC) 10 Take 10 mg by 0 11/19/2017 Active mg tablet mouth daily. MULTIVITAMIN,THER AND Take by mouth. 0 Active MINERALS (MULTI-VITAMIN HP/MINERALS ORAL) pravastatin (PRAVACHOL) Take 20 mg by 0 12/05/2017 Active 20 mg tablet mouth daily. venlafaxine (EFFEXOR) Take 37.5 mg by 0 09/13/2017 Active 37.5 mg tablet mouth daily. zolpidem (AMBIEN) 10 mg Take 5 mg by 0 12/02/2017 Active tablet mouth daily as needed. aspirin 81 mg EC Take 81 mg by 0 Active tabletIndications: mouth. every other dAY losartan (COZAAR) 50 mg Take 50 mg by 0 Active tablet mouth daily. Active Problems Problem Noted Date Fundic gland polyposis of stomach 05/20/2018 Overview: Added automatically from request for alejandra lopez [id number] Solitary fundic gland polyp 02/24/2018 Overview: Added automatically from request for alejandra lopez [id number] Personal history of colonic polyp 12/09/2017 Overview: Added automatically from request for alejandra lopez [id number] Surgical History Surgery Date Site/Laterality Comments SECTION, CLASSIC x2 DILATION AND CURETTAGE OF UTERUS TONSILLECTOMY TOTAL KNEE ARTHROPLASTY Left EGD 06/06/2015 changes consiste nt with reflux EGD 02/15/2018 3 FGP removed; 1 with LGD; f/up 1 year COLONOSCOPY W/ POLYPECTOMY 06/06/2015 2 TA, 1 SSA removed; f/up 3 years COLONOSCOPY W/ POLYPECTOMY 02/15/2018 diver ticulosis in sigmoid colon; 1 hyperplastic kitty yp removed; f/up 5 years [place] COLONOSCOPY FLX DX W/COLLJ SPEC 02/15/2018 N/A Procedure: DIAGNOSTIC WHEN PFRMD FLEXIBLE COLONOS COPY PROXIMAL TO SPLE TIFFANIE FLEXURE; Surgeo n: Cm Grande MD; Location: MAIN ENDOSCOPY; Serv ice: GASTROENTEROLOGY ; f/up 5 years [place] ESOPHAGOGASTRODUODENOSCOPY 02/15/2018 Esophagus/N/A Pr ocedure: DIAGNOSTIC TRANSORAL DIAGNOSTIC UPPER GASTR OINTESTINAL ENDOSCOPY; Surg louie: Cm Grande MD; Location: MAIN ENDOSCOPY; Serv ice: GASTROENTEROLOGY [place] EGD TRANSORAL BIOPSY 05/10/2018 Esophagus/N/A Procedur e: UPPER SINGLE/MULTIPLE GASTROINTESTINAL ENDOSCOPY OF ESO PHAGUS, STOMACH, AND DUO DENUM WITH BIOPSY; Hernandez rgeon: Cm Grande MD; Location: MAIN ENDOSCOPY; Serv ice: GASTROENTEROLOGY ; f/up 1-2 years [place] EGD TRANSORAL BIOPSY 08/15/2019 Esophagus/N/A Procedur e: UPPER SINGLE/MULTIPLE GASTROINTESTINAL ENDOSCOPY OF ESO PHAGUS, STOMACH, AND DUO DENUM WITH BIOPSY; Hernandez rgeon: Cm Grande MD; Location: MAIN ENDOSCOPY; Serv ice: GASTROENTEROLOGY Medical History Medical History Date Comments Hypertension Hypercholesterolemia H/O: depression Sleep apnea Hypokalemia Tubular adenoma of colon 06/06/2015 s/p polypectomy Serrated polyp of colon 06/06/2015 s/p polypectomy Gastroesophageal reflux disease 06/06/2015 EGD reve aled changes consistent with reflux Hiatal hernia 02/15/2018 large hiatal hernia with paraesophageal component noted on E GD Fundic gland polyposis of stomach 02/15/2018 s/p po lypectomy; 1 FGP had LGD Diverticulosis of sigmoid colon 02/15/2018 noted on colonoscopy Depressive disorder Family History Medical History Relation Name Comments Bladder Cancer Father Diabetes Mother Hypertension Mother Kidney disease Mother Kidney failure Mother -Other cancer Paternal Grandmother ? liver vs renal Relation Name Status Comments Father Mother Paternal Grandmother Social History Tobacco Use Types Packs/Day Years Used Date Never Smoker Smokeless Tobacco: Never Used Alcohol Use Standard Drinks/Week Comments No 0 (1 standard drink = 0.6 oz pure Quit . Previously up to 5 alcohol) glasses wine per day Alcohol Habits Answer Date Recorded How often do you have a drink Not asked containing alcohol? How many drinks containing alcohol Not asked do you have on a typical day when you are drinking? How often do you have six or more Not asked drinks on one occasion? Comment: Quit 11/15/17. Previously up to 5 12/09/19 18 glasses wine per day Sex Assigned at Date Recorded Not on file Obstetrics History Last Filed Vital Signs Not on file Plan of Treatment Health Maintenance Due Date Last Done Comments COVID-19 Vaccination (1) 1962 Results Not on fileafter 04/05/2021 Insurance Payer Benefit Plan / Subscriber ID Effective Dates Phone Addre ss Type Group [employer] [place]PO POS 2020-Present [address] [place] [address] [phone] (Work) Fozia Harp Personal/Family Self [id number] (Home) [place], [place] [phone] (Work) Fozia Harp Personal/Family Self [id number] (Home) [place] [address] Care Teams Staff Trainer Relationship Specialty Start Date End Date Sanders, Meghan, MD PCP - General 01/15/16 [facility] [place], [place] [id number] Lynette Gallardo PA Physician Fire Protection Inspector 01/22/[address] [place] [id number] Meghan Sanders MD Physician 01/22/16 [facility] [place] [address]
--- OUTSIDE RECORDS SUMMARY | 2022-04-05 12:49 | XMS REPORT | Continuity of Care Document ---
:1955 Author Organization [facility] t Address [address] [place] [address] Care Team Providers Name Role Phone DUDLEY Primary Care Physician Unavailable JORJE Attending Clinician Unavailable ANNA Attending Clinician Unavailable Stephanie Gilliam Attending Clinician Unavailable PIOTR CASTILLO Attending Clinician Unavailable Mateo RECINOS Attending Clinician Unavailable Taylor SANFORD Attending Clinician Unavailable Doctor Unassigned, Name Attending Clinician Unavailable ANNA Attending Clinician Unavailable JORJE Attending Clinician Unavailable Only, Test Attending Clinician Unavailable Rosemary ROSEN Attending Clinician ROSEMARY Attending Clinician Unavailable Pcp, Does Not Have A Attending Clinician Ivan SANFORD, T Attending Clinician Unavailable Lab, Fam Pob I Attending Clinician Unavailable [employer]ODUCTION WORKER Attending Clinician BRENNEN Attending Clinician Unavailable JULIANE Attending Clinician Unavailable JERSEY Attending Clinician Unavailable RHEA Attending Clinician Unavailable REYNA Attending Clinician Unavailable VENESSA Attending Clinician Unavailable RYAN Attending Clinician Unavailable CRUZ Attending Clinician Unavailable Stephanie Gilliam Admitting Clinician Unavailable UNDEFINED Admitting Clinician Unavailable Payers Payer Name Policy Type Policy Number Effective Date Expiration Date Dinah garcia [id number] PPO AND [id number] 2020 OUT OF STATE 00:00:00 SHA CRONIN [id number] 2017 2018 00:00:00 DIRECT US 00:00:00 PPO/PPO 90 [employer]ETNA O [id number] 2018 2020 00:00:00 00:00:00 Problems Condition Condition Condition Status Onset Resolution Last Treating Co mments Source Name Details Category Date Date Treatment Clinician Date High blood High blood Disease Active U T pressure pressure 2-28 Health 00:00: 00 Mild Mild Disease Active UT intermitte intermitte 2-28 He alth nt asthma nt asthma 00:00: without without 00 complicati complicati on on Mixed Mixed Disease Active UT hyperlipid hyperlipid 2-28 He alth emia emia 00:00: 00 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 Added automatic ally from request for surgery [id number] Solitary Solitary Disease Active Overview: fundic fundic 4-12 [place] gland gland 00:00: g of this n polyp polyp 00 note might be different from the original. Added automatic ally from request for surgery [id number] Personal Personal Disease Active Overview: history of history of 12-09 Formattin Anderso colonic colonic 00:00: g of this n polyp polyp 00 note might be different from the original. Added automatic ally from request for surgery [id number] SCREENING Diagnosis Active 2017-12-21 Memoria MAMMOGRAM 11-25 14:03:00 l 00:00: [place] SCREENING 00 MAMMOGRAM Active 11/25/2017 [facility] DX: Diagnosis Active 2017-03-03 Mem oria ROUTINE -14 11:15:00 l SCREENING DX: 00:00: [place] ROUTINE 00 SCREENING Active 01/26/2017 [facility] DIZZINESS Diagnosis Active 2016-06-27 Memoria 06-27 16:33:00 l 00:00: [place] DIZZINESS 00 Active 06/27/2016 [facility] UNK Diagnosis Active 2016-06-30 Mem oria 06-16 05:31:00 l UNK 00:00: Kirk 00 Active 06/16/2016 [facility] SCREENING Diagnosis Active 2016-01-28 Memoria 11-29 12:34:00 l 00:00: [place] SCREENING 00 Active 11/29/2015 [facility] No known No known Disease UT active active Health problems problems Encounter Problem 2018-12-25 Me moria for 23:31:46 l screening [place] mammogram Encounter for for malignant screening neoplasm mammogram of breast for malignant neoplasm of breast 12/25/2018 [facility] Low back Problem Resolve 2019-03-30 Me moria pain d 22:56:24 l (disorder) Low back He rmann pain (disorder) Resolved Problem 03/30/2019 [facility] [place] Anxiety Problem Active 2019-03-30 Aquiles garrick (finding) 22:56:24 l Anxiety Lyn[place] (finding) Active Problem 03/30/2019 [facility] [place] Sleep Problem Active 2019-03-30 Memor ia apnea 22:56:24 l (finding) Sleep Jorje n apnea (finding) Active Problem 03/30/2019 [facility] [place] History of History of Problem Resolve UT essential essential d Phys ici hypertensi hypertensi an s on on History of History of Problem Resolve UT hyperlipid hyperlipid d Ph ysici emia emia ans History of History of Problem Resolve UT Multiparit Multiparit d Ph ysici y y ans Normal Normal Problem Active UT routine routine Physici physical physical ans examinatio examinatio n n Sinusitis Sinusitis Problem Active UT Physici ans Fatigue Fatigue Problem Active UT Physici ans Impaired Impaired Problem Active UT fasting fasting Physici glucose glucose ans Obstructiv Obstructiv Problem Active U T e sleep e sleep Physici apnea apnea ans Skin Skin Problem Active UT lesion of lesion of Phys ici chest wall chest wall an s Motion Motion Problem Active UT sickness sickness Physic i ans Obesity Obesity Problem Active UT Physici ans Staph Staph Problem Active UT infection infection Phys ici ans Allergic Allergic Problem Active UT rhinitis rhinitis Physic i ans Post-menop Post-menop Problem Active U T ausal ausal Physici bleeding bleeding ans Post-opera Post-opera Problem Active U T tive state tive state Ph ysici ans Elevated Elevated Problem Active UT blood blood Physici pressure pressure ans (not (not hypertensi hypertensi on) on) Low back Low back Problem Active UT pain pain Physici ans Screening Screening Problem Active UT for breast for breast Ph ysici cancer cancer ans Lower Lower Problem Active UT abdominal abdominal Phys ici pain pain ans Urine Urine Problem Active UT frequency frequency Phys ici ans Abdominal Abdominal Problem Active UT pain, pain, Physici chronic, chronic, ans left lower left lower quadrant quadrant GERD GERD Problem Active UT (gastroeso (gastroeso Ph ysici phageal phageal ans reflux reflux disease) disease) Abnormal Abnormal Problem Active UT laboratory laboratory Ph ysici test test ans result result Hyperglyce Hyperglyce Problem Active U T juan juan Physici ans Ketonuria Ketonuria Problem Active UT Physici ans Suprapubic Suprapubic Problem Active U T pain pain Physici ans Acute Acute Problem Active UT upper upper Physici respirator respirator an s y y infection infection Hyperlipid Hyperlipid Problem Active U T emia emia Physici ans Insomnia Insomnia Problem Active UT Physici ans Hypokalemi Hypokalemi Problem Active U T a a Physici ans Vaginal Vaginal Problem Active UT atrophy atrophy Physici ans Dyspareuni Dyspareuni Problem Active U T a, female a, female Phys ici ans Benign Benign Problem Active UT hypertensi hypertensi Ph ysici on on ans Flu Flu Problem Active UT vaccine vaccine Physici need need ans Well woman Well woman Problem Active U T exam exam Physici ans Alcoholism Alcoholism Problem Active U T , chronic , chronic Phys ici ans Anxiety Anxiety Problem Active UT Physici ans Depression Depression Problem Active U T Physici ans History of History of Problem Active U T colon colon Physici polyps polyps ans Sleep Sleep Problem Active UT apnea apnea Physici ans Interstiti Interstiti Problem Active U T al al Physici cystitis cystitis ans Colon Colon Problem Active UT cancer cancer Physici screening screening ans Benign Benign Problem Active UT fundic fundic Physici gland gland ans polyps of polyps of stomach stomach Diverticul Diverticul Problem Active U T um, um, Physici gastric gastric ans History of Past Illness Condition Condition Condition Status Onset Resolution Last Treating Co mments Source Name Details Category Date Date Treatment Clinician Date Discharge Problem 2016-06-30 2016-06-30 Memoria Diagnosis: 06-27 02:05:39 02:05:39 l Acute 05:00: Kirk hypokalemi Discharge 00 a Diagnosis: Acute hypokalemi a 06/27/2016 06/30/2016 [facility] Discharge Problem 2016-06-30 2016-06-30 Memoria Diagnosis: 06-27 02:05:39 02:05:39 l Acute 05:00: Kirk anxiety Discharge 00 Diagnosis: Acute anxiety 06/27/2016 06/30/2016 [facility] Allergies, Adverse Reactions, Alerts Allergy Allergy Status Severity Reaction(s) Onset Inactive Treating Comm ents Source Name Type Date Date Clinician amoxicil DA Active [facility] 2014-0 [facility] ranjeet 6- [place] 00:00: d 00 [facility] amoxicil DA Active CO RASH 2014-0 [facility] ranjeet 6-09 Clear 00:00: Lopez 00 [facility] amoxicil amoxicil Active Memori a ranjeet ranjeet 4-11 l 00:00: Kirk 00 [place] Allergy Active UT ins to 4-11 Health substanc 00:00: e 00 NO KNOWN Drug Active [facility] Penicill Allergy Active UT ins to drug Physici (finding ans ) Family History Family Member Diagnosis Comments Start Date Stop Date Source Unknown Family Family history of Family History [facility] Member Cancer Unknown Family Family history of Family History [facility] Member Diabetes Mellitus Unknown Family Family history of Family History [facility] Member Hypertension Father Family history of [facility] malignant neoplasm of urinary bladder Natural father Bladder Cancer And leoon Natural mother Diabetes MD [place] n Natural mother Hypertension [place] son Natural mother Kidney disease And ersasael Natural mother Kidney failure And fuad Paternal -Other cancer MD Hagen grandmother Social History Social Habit Start Date Stop Date Quantity Comments Source Exposure to Not sure [facility] SARS-CoV-2 (event) History [facility] MD Hagen Alcohol Frequency History [facility] MD Hagen Alcohol Std Drinks History [facility] MD Hagen Alcohol Binge Alcohol intake 2019-08-17 2019-08-17 Current non-drinker Norman Hagen 00:00:00 00:00:00 of alcohol (finding) History [facility] 2017-12-09 2017-12-09 Quit 11/15/17. MD Haim davila Alcohol Comment 00:00:00 00:00:00 Previously up to 5 glasses wine per day Tobacco use and 2017-12-09 2017-12-09 Smokeless tobacco MD Hagen exposure 00:00:00 00:00:00 non-user Sex [birth year] MD Garcia on 00:00:00 00:00:00 Smoking Status Start Date Stop Date Source Unknown if ever smoked [facility] Never smoked tobacco [facility] Medications Ordered Filled Start Stop Current Ordering Indication Dosage Frequency Signature Comments Components Source Medication Medication Date Date Medication? Clinician (SIG) Name Name Multiple Yes TAKE 1 UT Vitamins-Mi 2-28 TABLET Health nerals 12:26: DAILY. (Multi 40 Vitamin/Min erals) tablet aspirin 81 Yes 81mg 81 mg. UT MG EC -28 Health tablet 12:26: 40 calcium Yes 1{tbl} QD Take 1 UT carbonate-v 2-28 tablet by [facility] itamin D 12:26: mouth 1 (Oscal-500) 40 (one) time 500-200 each day. MG-UNIT tablet MULTIVITAMI Yes Take by Mem oria N,THER AND 1- mouth. l MINERALS 18:42: Kirk (MULTI-ASTER 17 MIN HP/MINERALS ORAL) aspirin 81 Yes Take 81 mg M emoria mg EC -28 by mouth. l tablet 18:42: [place] 17 losartan Yes Take 50 mg Mem oria (COZAAR) 50 1-28 by mouth l mg tablet 18:42: daily. Jorje n 17 Multiple 2022-0 Yes TAKE 1 UT Vitamins-Mi 1-28 TABLET Health nerals 12:58: DAILY. (Multi 34 Vitamin/Min erals) tablet aspirin 81 Yes 81mg 81 mg. UT MG EC 12-12 Health tablet 12:58: 34 calcium Yes 1{tbl} QD Take 1 UT carbonate-v 12-12 tablet by a [facility] itamin D 12:58: mouth 1 (Oscal-500) 34 (one) time 500-200 each day. MG-UNIT tablet amLODIPine Yes UT (Norvasc) 1-17 Health 10 MG 00:00: tablet 00 pravastatin Yes UT (Pravachol) 1-17 Health 20 MG 00:00: tablet 00 losartan Yes UT (Cozaar) 50 1-17 Health MG tablet 00:00: 00 amLODIPine Yes UT (Norvasc) 17 Health 10 MG 00:00: tablet 00 pravastatin Yes UT (Pravachol) 17 Health 20 MG 00:00: tablet 00 losartan Yes UT (Cozaar) 50 -17 Health MG tablet 00:00: 00 venlafaxine Yes UT (Effexor) 1-02 Health 37.5 MG 00:00: tablet 00 venlafaxine Yes UT (Effexor) 02 Health 37.5 MG 00:00: tablet 00 MULTIVITAMI 2018-11 Yes Take by N,THER AND 0-01 mouth. Anderso MINERALS 17:57: n (MULTI-ASTER 03 MIN HP/MINERALS ORAL) aspirin 81 2018-11 Yes 81mg Take 81 mg M D mg EC 0-01 by mouth. Anderso tablet 17:57: n 03 losartan 2018-11 Yes 50mg Take 50 mg MD (COZAAR) 50 0-01 by mouth Phillip rso mg tablet 17:57: daily. n 03 Venlafaxine Venlafaxine Yes JULIOCESAR TAKE 1 UT HCl - 37.5 HCl - 37.5 3-06 PERKISON TABLET BY Physici MG Oral MG Oral 00:00: M.D. MOUTH ans Tablet Tablet 00 DAILY. pravastatin Yes Take 20 mg Memoria (PRAVACHOL) 21 by mouth l 20 mg 00:00: daily. Lynden tablet 00 pravastatin Yes 20mg Take 20 mg MD (PRAVACHOL) 1-21 by mouth Phillip rso 20 mg 00:00: daily. n tablet 00 zolpidem Yes Take 5 mg Aquiles garrick (AMBIEN) 10 1-18 by mouth l mg tablet 00:00: daily as Herm mariann 00 needed. zolpidem Yes 5mg Take 5 mg MD (AMBIEN) 10 1-18 by mouth Phillip rso mg tablet 00:00: daily as n 00 needed. amLODIPine Yes Take 10 mg M emoria (NORVASC) 1-05 by mouth l 10 mg 00:00: daily. [place] tablet 00 amLODIPine Yes 10mg Take 10 mg M D (NORVASC) 1-05 by mouth Jose o 10 mg 00:00: daily. n tablet 00 venlafaxine 2016-11 Yes Take 37.5 M emoria (EFFEXOR) 0-30 mg by l 37.5 mg 00:00: mouth Lyn[place] tablet 00 daily. venlafaxine 2016-11 Yes 37.5mg Take 37.5 MD (EFFEXOR) 0-30 mg by Anderso 37.5 mg 00:00: mouth n tablet 00 daily. Acetaminoph No Notes: Aquiles garrick en 325 MG / 8-16 (Same as: l Hydrocodone 13:40: [place] Stefany nn Bitartrate 00 325/5) Do 5 MG Oral not exceed Tablet 4gm/day of acetaminop hen. Flumazenil No 0.2 mg, Aquiles garrick 8-16 Route: l 13:31: IVP, PRN, Dosing Weight 90.455, kg, PRN Benzodiaze pine Reversal, Initial dose, Start date: 06/30/16 8:31:00 CDT, Duration: 30 day, Stop date: 07/30/16 8:30:00 CDT Fentanyl No 50 Memoria 8-16 microgram, l 13:31: Route: IVP, Q5Min, Dosing Weight 90.455, kg, PRN Pain Score 7-10, Start date: 06/30/16 8:31:00 CDT, Duration: 2 doses or times, Stop date: Limited # of times Ondansetron 2016-0 No 4 mg, Memor ia 06-30 Route: l 13:31: IVP, ONCE, Lynden 00 Dosing Weight 90.455, kg, PRN Nausea & Vomiting, Start date: 06/30/16 8:31:00 CDT Hydromorpho 2016-0 No 0.5 mg, Mem oria ne 06-30 Route: l 13:31: IVP, Kirk 00 Q5Min, Dosing Weight 90.455, kg, PRN Pain Score 7-10, Start date: 06/30/16 8:31:00 CDT, Duration: 4 doses or times, Stop date: Limited # of times Oxycodone 2015-0 No 10 mg, Memori a 06-30 Route: PO, l 13:31: Drug form: Kirk 00 TAB, Q4H, Dosing Weight 90.455, kg, PRN Pain Score 7-10, Start date: 06/30/16 8:31:00 CDT, Duration: 30 day, Stop date: 07/30/16 8:30:00 CDT Naloxone 2016-0 No 0.4 mg, Memori a 06-30 Route: l 13:31: IVP, Kirk 00 Q2MIN, Dosing Weight 90.455, kg, PRN Narcotic Reversal, Start date: 06/30/16 8:31:00 CDT, Duration: 8 doses or times, Stop date: Limited # of times Acetaminoph 2015-0 No 1,000 mg, M emoria en 06-30 Route: l 13:31: IVPB, Drug Kirk 00 form: INJ, ONCE, Dosing Weight 90.455, kg, PRN Pain Score 1-3, Start date: 06/30/16 8:31:00 CDT, Duration: 1 doses or times, Stop date: Limited # of times Labetalol 2016-0 No 10 mg, Memori a 06-30 Route: l 13:31: IVP, [place] 00 Q5Min, Dosing Weight 90.455, kg, PRN Elevated BP, Start date: 06/30/16 8:31:00 CDT, Duration: 5 doses or times, Stop date: Limited # of times ketOROLAC 2016-0 No IV, ONCE Aquiles garrick (ANES) 06-30 l 13:29: [place] 00 propofol No Route: IV, Mem oria (ANES) 06-30 Drug form: l 13:27: INJ, ONCE, Stop date: 06/30/16 8:27:00 CDT lidocaine No Route: IV, Me moria (ANES) 06-30 Drug form: l 13:27: INJ, ONCE, Stop date: 06/30/16 8:27:00 CDT ondansetron No Route: IV, Memoria (ANES) 06-30 Drug form: l 13:17: INJ, ONCE, Stop date: 06/30/16 8:17:00 CDT fentaNYL No Route: IV, Mem oria (ANES) 06-30 Drug form: l 13:17: INJ, ONCE, Stop date: 06/30/16 8:17:00 CDT levofloxaci No Route: IV, Memoria n (ANES) 06-30 Drug form: l 13:17: INJ, ONCE, Stop date: 06/30/16 8:17:00 CDT metroNIDAZO No Route: IV, Memoria LE (ANES) 06-30 Drug form: l 13:17: INJ, ONCE, Stop date: 06/30/16 8:17:00 CDT midazolam No Route: IV, Me moria (ANES) 06-30 Drug form: l 13:07: SOLN, 00 ONCE, Stop date: 06/30/16 8:07:00 CDT 72 HR No 1 patch, Memoria Scopolamine 06-30 Route: l 0.0139 13:00: TOP, Drug Jorje n MG/HR 00 Form: Transdermal ERFILM, Patch Dosing Weight 90.455, kg, PRE OP, Start date: 06/30/16 8:00:00 CDT, Duration: 30 day, Stop date: 07/30/16 7:59:00 CDT LR 1000 mL No Route: IV, M emoria INJ (ANES) 06-30 Total l 12:32: Volume: Lynden 00 1,000, Start date: 06/30/16 7:32:00 CDT, Stop date: 06/30/16 8:32:00 CDT moxifloxaci No 400 mg, Mem oria n 06-30 Route: l 12:30: IVPB, [place] 00 ONCALL, Dosing Weight 90.455, kg, Start date: 06/30/16 7:30:00 CDT Potassium Yes 10 mEq = 1 Me moria Chloride 10 16 tab, PO, l MEQ 12:14: Daily, 0 Kirk Extended 00 Refill(s) Release Tablet Calcium No 1,000 mL, Memor ia Chloride 06-30 Rate: 25 l 0.0014 12:07: ml/hr, MEQ/ML / 00 Infuse Potassium over: 40 Chloride hr, Route: 0.004 IV, Dosing MEQ/ML / Weight Sodium 90.455 kg, Chloride Total 0.103 Volume: MEQ/ML / 1,000, Sodium Start Lactate date: 0.028 06/30/16 MEQ/ML 7:07:00 Injectable CDT, Solution Duration: 30 day, Stop date: 07/30/16 7:06:00 CDT Levaquin No Notes: Memoria -16 (Same l 12:00: as:Levaqui n) potassium No Notes: Memori a chloride 06-27 (Same as: l 23:20: K-Dur 20) "Do Not Crush" With food and full glass of water Ativan No Notes: Memoria 8-13 (Same as: l 20:05: Ativan) pravastatin Yes 20 mg = 1 M emoria 20 mg oral 8-08 tab, PO, l tablet 19:46: Bedtime, # Stefany nn 00 30 tab, 0 Refill(s) zolpidem 10 Yes 10 mg = 1 M emoria mg oral 8-08 tab, PO, l tablet 19:46: Bedtime, Lynden 00 PRN for sleep, # 14 tab, 0 Refill(s) amLODIPine Yes 10 mg = 1 Me moria 10 mg oral 8-08 tab, PO, l tablet 19:45: Daily, # Kirk 00 30 tab, 0 Refill(s) Aspirin 81 Yes 81 mg = 1 Me moria MG Enteric 06-22 tab, PO, l Coated 19:45: Daily, Kirk Tablet 00 *LAST DOSE 06/22/16 AM*, # 90 tab, 3 Refill(s) venlafaxine Yes 37.5 mg = M emoria 37.5 mg 06-22 1 cap, PO, l oral 19:45: Daily, # Lynden capsule, 00 30 cap, 0 extended Refill(s) release Hydrochloro Yes 1 tab, PO, Memoria thiazide 25 06-22 Daily, # l MG / 19:45: 30 tab, 0 [place] Losartan 00 Refill(s) Potassium 100 MG Oral Tablet zolpidem Yes TAKE 1/2 UT (Ambien) 10 5-18 [facility]T [facility] MG tablet 00:00: BEDTIME 00 NEEDED FOR SLEEP. zolpidem Yes TAKE 1/2 UT (Ambien) 10 5-18 TABLET [facility] MG tablet 00:00: BEDTIME 00 NEEDED FOR SLEEP. Zolpidem Zolpidem Yes JULIOCESAR TAKE 1/2 UT Tartrate 10 Tartrate 10 5-18 PERKISON TABLET AT [facility] MG Oral MG Oral 00:00: M.D. BEDTIME a ns Tablet Tablet 00 NEEDED FOR SLEEP. amLODIPine amLODIPine Yes JULIOCESAR TAKE 1 UT Besylate 10 Besylate 10 7-28 PERKISON TABLET BY [facility] MG Oral MG Oral 00:00: M.D. MOUTH ans Tablet Tablet 00 DAILY DIRECTED. Pravastatin Pravastatin 2012-11 Yes JULIOCESAR TAKE 1 UT Sodium 20 Sodium 20 0-09 PERKISON TABLET BY [facility] MG Oral MG Oral 00:00: M.D. MOUTH ans Tablet Tablet 00 DAILY. Multi Multi Yes 1 QD TAKE 1 UT Vitamin/Min Vitamin/Min TABLET Physici erals Oral erals Oral DAILY. a ns Tablet Tablet Losartan Losartan Yes 1 QD TAKE 1 UT Potassium Potassium TABLET Phy sici 50 MG Oral 50 MG Oral DAILY. a ns Tablet Tablet Vitamin D3 Vitamin D3 Yes UT 50 MCG 50 MCG [facility] (1999 UT) (2000 UT) ans Oral Oral Capsule Capsule Aspirin 81 Aspirin 81 Yes TAKE 1 U T MG Oral MG Oral TABLET Physici Tablet Tablet EVERY ans Delayed Delayed OTHER DAY Release Release DIRECTED. Immunizations Ordered Immunization Filled Immunization Date Status Commen ts Source Name Name Fluzone Quadrivalent 2017-12-21 Completed [facility] 0.5 ML Intramuscular 16:07:00 Suspension Tenivac 5-2 LFU 2017-07-21 Completed [facility] Intramuscular 00:00:00 Injectable Influenza 2015-10-09 Completed [facility] 00:00:00 Influenza 2013-09-12 Completed [facility] 17:13:00 Hepatitis A 2012-12-26 Completed [facility] 00:00:00 Hepatitis B 2012-12-26 Completed [facility] 00:00:00 Vital Signs Vital Name Observation Time Observation Value Comments Source Body height 2022-01-12 157.5 cm [facility] 18:24:00 Body weight 2022-01-12 100.971 kg [facility] 18:24:00 BMI 2022-01-12 40.71 kg/m2 [facility] 18:24:00 Oxygen saturation 2022-01-12 99 /min [facility] in Arterial blood 18:24:00 by Pulse oximetry Systolic blood 2022-01-12 143 mm[Hg] [facility] pressure 18:24:00 Diastolic blood 2022-01-12 82 mm[Hg] [facility] pressure 18:24:00 Heart rate 2022-01-12 85 /min [facility] 18:24:00 Body temperature 2022-01-12 36.56 Kayley [facility] 18:24:00 Body temperature 2021-01-06 97.6 [degF] Method: [facility] 12:22:00 Temporal Heart Rate 2021-01-06 76 /min [facility] 12:22:00 Respiratory rate 2021-01-06 18 /min Quality: Normal [facility] 12:22:00 Systolic blood 2021-01-06 145 mm[Hg] Location: RUE; [facility] pressure 12:22:00 Position: Sitting Diastolic blood 2021-01-06 85 mm[Hg] Location: RUE; [facility] ans pressure 12:22:00 Position: Sitting Body height 2021-01-06 158.7 cm [facility] 12:22:00 Weight 2021-01-06 94.85 kg [facility] 12:22:00 Body mass index 2021-01-06 37.66 kg/m2 [facility] (BMI) [Ratio] 12:22:00 Systolic blood 2020-12-13 135 mm[Hg] Location: LUE; [facility] ns pressure 14:00:00 Position: Sitting Diastolic blood 2020-12-13 76 mm[Hg] Location: LUE; [facility] ans pressure 14:00:00 Position: Sitting Body height 2020-12-13 62 [in_us] [facility] 14:00:00 Weight 2020-12-13 209.2 [lb_av] [facility] 14:00:00 Body mass index 2020-12-13 38.26 kg/m2 [facility] (BMI) [Ratio] 14:00:00 Respiratory rate 2020-12-13 18 /min [facility] 14:00:00 Body temperature 2020-12-13 97.3 [degF] Method: [facility] 14:00:00 Temporal Heart Rate 2020-12-13 91 /min Location: L [facility] 14:00:00 Brachial Artery; Systolic blood 2020-10-31 126 mm[Hg] Location: LUE; [facility] ns pressure 14:44:00 Position: Sitting Diastolic blood 2020-10-31 78 mm[Hg] Location: LUE; [facility] ans pressure 14:44:00 Position: Sitting Body height 2020-10-31 62 [in_us] [facility] 14:44:00 Weight 2020-10-31 211.2 [lb_av] [facility] 14:44:00 Body mass index 2020-10-31 38.63 kg/m2 [facility] (BMI) [Ratio] 14:44:00 Body temperature 2020-10-31 98.2 [degF] Method: [facility] 14:44:00 Temporal Heart Rate 2020-10-31 79 /min Location: L [facility] 14:44:00 Brachial Artery; Respiratory rate 2020-10-31 18 /min [facility] 14:44:00 Systolic blood 2020-01-01 139 mm[Hg] Location: LUE; [facility] pressure 15:13:00 Position: Sitting Diastolic blood 2020-01-01 79 mm[Hg] Location: LUE; [facility] ans pressure 15:13:00 Position: Sitting Body height 2020-01-01 158.5 cm [facility] 15:13:00 Weight 2020-01-01 91.6 kg [facility] 15:13:00 Body mass index 2020-01-01 36.46 kg/m2 [facility] (BMI) [Ratio] 15:13:00 Body temperature 2020-01-01 98.5 [degF] Method: Oral [facility] 15:13:00 Heart Rate 2020-01-01 75 /min [facility] 15:13:00 Respiratory rate 2020-01-01 18 /min [facility] 15:13:00 O2 SAT 2020-01-01 99 % Source: [facility] 15:13:00 BP Systolic 2018-12-26 128 mm[Hg] Location: RUE; [facility] 13:16:00 Position: Sitting BP Diastolic 2018-12-26 83 mm[Hg] Location: RUE; [facility] 13:16:00 Position: Sitting Height 2018-12-26 62 [in_us] [facility] 13:16:00 Weight 2018-12-26 202 [lb_av] [facility] 13:16:00 Body Mass Index 2018-12-26 36.95 kg/m2 [facility] Calculated 13:16:00 Temperature 2018-12-26 98.9 [degF] Method: Oral [facility] 13:16:00 Heart Rate 2018-12-26 76 /min [facility] 13:16:00 Respiration Rate 2018-12-26 18 /min [facility] 13:16:00 BP Systolic 2018-01-12 113 mm[Hg] Location: L[facility]; [facility] 11:12:00 Position: Sitting BP Diastolic 2018-01-12 75 mm[Hg] Location: L[facility]; [facility] 11:12:00 Position: Sitting Height 2018-01-12 61.75 [in_us] [facility] 11:12:00 Weight 2018-01-12 190.375 [lb_av] [facility] 11:12:00 Body Mass Index 2018-01-12 35.1 kg/m2 [facility] Calculated 11:12:00 Temperature 2018-01-12 98.1 [degF] Method: [facility] 11:12:00 Temporal Respiration Rate 2018-01-12 16 /min Quality: Normal [facility] 11:12:00 Heart Rate 2018-01-12 87 /min [facility] 11:12:00 BP Systolic 2018-01-10 131 mm[Hg] Location: RUE; [facility] 12:29:00 Position: Sitting BP Diastolic 2018-01-10 84 mm[Hg] Location: RUE; [facility] 12:29:00 Position: Sitting Height 2018-01-10 61.75 [in_us] [facility] 12:29:00 Weight 2018-01-10 190 [lb_av] [facility] 12:29:00 Body Mass Index 2018-01-10 35.04 kg/m2 [facility]culated 12:29:00 Temperature 2018-01-10 98.6 [degF] Method: Oral [facility] 12:29:00 Heart Rate 2018-01-10 87 /min [facility] 12:29:00 Respiration Rate 2018-01-10 18 /min [facility] 12:29:00 BP Systolic 2017-12-21 123 mm[Hg] Location: LUE; [facility] 09:27:00 Position: Sitting BP Diastolic 2017-12-21 73 mm[Hg] Location: LUE; [facility] 09:27:00 Position: Sitting Height 2017-12-21 61.75 [in_us] [facility] 09:27:00 Weight 2017-12-21 189 [lb_av] [facility] 09:27:00 Body Mass Index 2017-12-21 34.85 kg/m2 [facility] 09:27:00 Temperature 2017-12-21 97.7 [degF] Method: [facility] 09:27:00 Temporal Heart Rate 2017-12-21 77 /min Quality: Normal [facility] 09:27:00 BP Systolic 2017-11-23 126 mm[Hg] Location: RUE; [facility] 14:00:00 Position: Sitting BP Diastolic 2017-11-23 73 mm[Hg] Location: RUE; [facility] 14:00:00 Position: Sitting BP Systolic 2017-11-23 141 mm[Hg] Location: LUE; [facility] 13:56:00 Position: Sitting BP Diastolic 2017-11-23 82 mm[Hg] Location: LUE; [facility] 13:56:00 Position: Sitting Height 2017-11-23 61.75 [in_us] [facility] 13:56:00 Weight 2017-11-23 188 [lb_av] [facility] 13:56:00 Body Mass Index 2017-11-23 34.67 kg/m2 [facility] 13:56:00 Temperature 2017-11-23 97.5 [degF] Method: [facility] 13:56:00 Temporal Heart Rate 2017-11-23 86 /min Location: L [facility] 13:56:00 Radial; Respiration Rate 2017-11-23 16 /min Quality: Normal [facility] 13:56:00 Respitory Rate 2016-06-30 [facility] 14[facility] Systolic (mm Hg) 2016-06-30 [facility] 14:45:00 Diastolic (mm Hg) 2016-06-30 [facility] 14:45:00 Respitory Rate 2016-06-30 [facility] 14:15:00 Systolic (mm Hg) 2016-06-30 [facility] 14:15:00 Diastolic (mm Hg) 2016-06-30 [facility] 14:15:00 Respitory Rate 2016-06-30 [facility] 14:00:00 Systolic (mm Hg) 2016-06-30 [facility] 14:00:00 Diastolic (mm Hg) 2016-06-30 [facility] 14:00:00 Respitory Rate 2016-06-28 [facility] 01:28:00 Temperature Oral 2016-06-28 98.2 F [facility] (F) 01:28:00 Heart Rate 2016-06-28 [facility] 01:28:00 Systolic (mm Hg) 2016-06-28 [facility] 01:28:00 Diastolic (mm Hg) 2016-06-28 [facility] 01:28:00 Weight 2016-06-27 [facility] 19:57:00 Respitory Rate 2016-06-27 [facility] 19[facility]57:00 Temperature Oral 2016-06-27 97.7 F [facility] (F) 19:57:00 Heart Rate 2016-06-27 [facility] 19:57:00 Height 2016-06-27 157.48 cm [facility] 19[facility]57:00 BMI Calculated 2016-06-27 [facility] 19:57:00 Systolic (mm Hg) 2016-06-27 [facility] 19:57:00 Diastolic (mm Hg) 2016-06-27 [facility] 19:57:00 Temperature Oral 2016-06-22 98.5 F [facility] (F) 19:47:00 Heart Rate 2016-06-22 [facility] 19:47:00 BMI Calculated 2016-06-22 [facility] 19:11:00 Weight 2016-06-22 [facility] 19:11:00 Height 2016-06-22 157.48 cm [facility] 19:11:00 Procedures Procedure Date / Time Performing Clinician Source Performed CONSENT/REFUSAL FOR 2021-03-30 19:22:48 Doctor Unassigned, No [facility] [place] [facility] MA Digital Mammo 2020-12-25 00:00:00 [facility] Scre[facility] Ankit [id number] EGD 2020-11-05 00:00:00 [facility] (Esophagogastroduodenosc opy) NOTICE OF PRIVACY 2020-09-05 19:33:30 Doctor Unassigned, No [facility] PRACTICES Name Medical [facility] CONSENT/REFUSAL FOR 2020-09-05 19:33:10 [facility] ASSIGNMENT OF BENEFITS 2020-09-05 19:32:53 Doctor Unassigned, No [facility] Name [facility] . [facility] - PAP 2020-01-01 00:00:00 [facility] US Pelvis with Pelvis 2020-01-01 00:00:00 [facility] Transvaginal 19593 . [facility] - PAP 2018-01-10 00:00:00 [facility] US Pelvis with Pelvis 2018-01-10 00:00:00 [facility] Transvaginal 06166 [QH] LIPID PANEL WITH 2017-11-23 00:00:00 [facility] REFLEX TO DIRECT LDL [QLH] CMP W/EGFR 2017-11-23 00:00:00 [facility] [QLH] TSH, 3RD 2017-11-23 00:00:00 [facility] GENERATION W/REFLEX TO FT4 History of Dilation And 2016-06-30 00:00:00 [facility] Curettage History of Knee Surgery 2015-01-30 00:00:00 [facility] Left Arthroplasty [facility] section<sup>1</sup> Tonsillectomy [facility] History of Tonsillectomy [facility] of [facility] Section Plan of Care Planned Activity Planned Date Details Comments Source Future Scheduled 2020-11-21 EGD [facility] Test 00:00:00 (Esophagogastroduoden oscopy) [code = EGD (Esophagogastroduoden oscopy)] Future Scheduled 2020-11-21 EGD [facility] Test 00:00:00 (Esophagogastroduoden oscopy) [code = EGD (Esophagogastroduoden oscopy)] Future Scheduled 2020-11-21 EGD [facility] Test 00:00:00 (Esophagogastroduoden oscopy) [code = EGD (Esophagogastroduoden oscopy)] Future Scheduled 2020-11-21 EGD [facility] Test 00:00:00 (Esophagogastroduoden oscopy) [code = EGD (Esophagogastroduoden oscopy)] Future Scheduled 1960 COVID-19 Vaccination MD Hagen Test 00:00:00 (1) [code = COVID-19 Vaccination (1)] Future Scheduled COVID-19 Vaccination Mem jakub Bradley Test (1) [code = COVID-19 Vaccination (1)] Encounters Start End Encounter Admission Attending Care Care Encounter Source Date/Time Date/Time Type Type Clinicians Facility Department ID 2022-04-02 Outpatient JORJE, [facility] [id number] [place] 01:04:[address] [place] [address] 2022-01-12 Outpatient ANNA, [facility] [id number] [place] 13:25:07 [facility] 2021-12-18 Outpatient ROSEANNE CRONIN [id number] 18:38:30 Haim davila 2022-03-10 2022-03-11 Inpatient EL aMne, [facility] [id number] [facility] 08:51:00 16:26:00 Jose [id number] [facility] 2022-03-10 2022-03-11 Inpatient EL Mane, [facility] [id number] [facility] 08:51:00 16:26:00 Jose Maciel [facility] 2022-03-03 2022-03-03 Outpatient EL HEATHER GilliamCL LABO [id number] [facility] 15:58:00 15:58:00 Jose Roblero419 [facility] 2022-03-03 2022-03-03 Inpatient EL Mane [facility] [id number] [facility] 10:00:00 10:00:00 Jose [id number] [facility] 2022-01-12 2022-01-12 Office Anna [facility] [id number] [place] 11:40:00 13:25:33 Visit Alvaro BENEDICT 350.1.13.58 krysten ARANA 9.2.7.2.686 [id number] 2022-01-07 2022-01-07 Outpatient ANNA, MHSE MHSE [id number] MH 14:06:00 23:59:[address] 2022-01-01 2022-01-01 Outpatient JORJE MHSE MHSE [id number] 07:37:00 08:32:[address] 2021-12-31 2021-12-31 Telephone Trudy Vazquez [facility] 1.2. 840.114 [id number] [place] 00:00:00 00:00:00 Trudy Vazquez 350.1.13.58 [facility] 9.2.7.2.686 ANOKA [id number] 2021-03-30 2021-03-30 Orders Doctor EMILY [id number] [place] [address] 00:00:00 00:00:00 Only Unassigned, RADHA 350.1.13.10 [place] [facility] 4.2.7.2.686 Leodan as [phone] [place] [address] Branch 2021-01-06 2021-01-06 Appointmen FLIP CASTILLO Gynecologic [id number] [place] 11:40:00 11:40:00 t; ALVARO CASTILLO, Oncology - P nic ALEJANDRE M.D. [facility] mahogany [place] 2020-12-31 2020-12-31 Outpatient ANNA, MHSE MHSE [id number] 13:21:00 23:59:[address] [facility] 2020-12-13 2020-12-13 AppointFLIP Melchor Multispecia 7 [id number] [place] 14:00:00 14:00:00 t; WAQAR DOSHI lty - Physi JORJE, [place], [facility] WAQAR DOSHI [address] 2020-11-21 2020-11-21 Outpatient JORJE, MHSE MHSE [id number] 08:01:00 10:30:[address] [facility] 2020-10-31 2020-10-31 Appointmen FLIP RECINOS Multispecia 7 [id number] [place] 14:45:00 14:45:00 t; [facility]AR [facility] WA[facility]AR [facility] [address] 2020-09-05 2020-09-05 Laboratory Only, [facility] Test ALMB 1.2.840. 114 [id number] Univers 14:34:47 14:49:47 Only Antonieta Riley 350.1.13.10 ity [facility] 4.2.7.2.686 [facility] [id number] [address] 2020-09-05 2020-09-05 Laboratory Only, [facility] 1.2.840.114 [id number] 14:34:47 14:49:47 Only Test Mishel 350.1.13.10 [place] 4.2.7.2.686 [place] [id number] 2020-09-05 2020-09-05 Outpatient R [facility] [id number] Univers 14:30:00 14:30:00 [id number] ity [facility] 2020-09-05 2020-09-05 Outpatient R JAYDAJERMAINE [facility] [id number] Univers 14:30:00 14:30:00 ANTONIETA alexis [facility] 2020-09-05 2020-09-05 Orders Doctor DIAZ 1.2.840.114 [id number] 00:00:00 00:00:00 Only Unassigned, RADHA 350.1.13.10 [place] [facility] 4.2.7.2.686 [id number] 2020-09-05 2020-09-05 Orders Doctor DIAZ 1.2.840.114 [id number] Univers 00:00:00 00:00:00 Only Unassigned, RADHA 350.1.13.10 [place] [facility] 4.2.7.2.686 [place] [id number] [address] 2020-09-04 2020-09-04 Outpatient R [facility] [id number] Univers 09:45:00 09:45:00 [id number] ity [facility] 2020-08-19 2020-08-19 Outpatient EL MDA MDA [id number] 07:47:20 07:47:20 Jose varela n 2020-06-18 2020-06-18 Telephone Pcp, EMILY [id number] [id number] 00:00:00 00:00:00 Patient RADHA 350.1.13.10 Does Not HOSPITAL 4.2.7.2.686 Have A [id number] 2020-06-18 2020-06-18 Letter EMILY Love 1.2.840.114 [id number] 00:00:00 00:00:00 (Out) Alma T RADHA 350.1.13.10 HOSPITAL 4.2.7.2.686 [id number] 2020-06-18 2020-06-18 Telephone PcpEMILY [id number] [id number] [facility] 00:00:00 00:00:00 Patient RADHA 350.1.13.10 it y of Does Not HOSPITAL [place].2.[place] Have A [id number] [address] 2020-06-18 2020-06-18 Letter EMILY Love 1.2.840.114 [id number] Univers 00:00:00 00:00:00 (Out) Alma T RADHA 350.1.13.10 it y of HOSPITAL 4.2.7.2.686 [place] as [id number] [address] 2020-06-17 2020-06-17 Laboratory Lab, [facility] 1.2.840.114 [id number] 09:02:26 09:16:54 Only Fam Pob I Health 350.1.13.10 [place] 4.2.7.2.686 Professio [id number] [place] [address] Office [facility] 2020-06-17 2020-06-17 Laboratory Lab, [facility] Fam Pob I [facility] 1.2. 840.114 [id number] Univers 09:02:26 09:16:54 Only Hailey Hughes 350.1.13.10 ity of [place] 4.2.7.2.686 [place] as Professio [id number] Pr dical [address] Office [facility] 2020-06-17 2020-06-17 Outpatient R BRENNEN [facility] [id number] Univers 09:00:00 09:00:00 HAILEY italexis of [facility] 2020-06-17 2020-06-17 Letter Doctor EMILY 1.2.840.114 [id number] Univers 00:00:00 00:00:00 (Out) Unassigned, RADHA 350.1.13.10 [place] [facility] 4.2.7.2.686 [place] as [id number] [address] 2020-01-02 2020-01-02 Outpatient MHSE MHSE [id number] MH 14:39:00 14:39:[address] [facility] 2020-01-01 2020-01-01 Appointmen FLIP CASTILLO Obstetrics [id number] [place] 14:20:00 14:20:00 t; ALVARO CASTILLO, and Otoniel ALEJANDRE M.D. Gynecology mahogany [facility] 2019-12-27 2019-12-27 Outpatient MHSE MHSE [id number] MH 10:15:00 10:15:00 [facility] 2019-03-28 2019-03-29 Outpatient nullFlavo [facility] [id number] Memoria 12:26:00 04:59:00 r Kirk 08 l [facility] 2019-03-28 2019-03-28 Outpatient MHSE MED [id number] MH 07:26:00 07:26:[facility] 2018-12-26 2018-12-26 Appointmen FLIP CASTILLO Gynecologic [id number] [place] 12:40:00 12:40:00 t; ALVARO CASTILLO, Oncology at [facility] Tiffany ALEJANDRE M.D. 2018-12-23 2018-12-24 Outpatient [facility]Flavo [facility] [id number] Memoria 18:04:00 05:59:00 r Kirk 07 l [facility] 2018-01-12 2018-01-13 Outpt Diag nullFlavo [facility] [id number] Memoria 19:38:00 05:59:00 Services r Outpatient 08 l [facility] 2018-01-12 2018-01-12 Appointmen FLIP CARDOZO Psychiatry [id number] [place] 11:00:00 11:00:00 t; CLIFTON CARDOZO, Physi ci Tiffany LAZO M.D. 2018-01-10 2018-01-10 Appointmen FLIP CASTILLO [facility] [id number] [place] 11:40:00 11:40:00 t; ALVARO CASTILLO, Oncology at Tiffany Julio M.D. 2017-12-21 2017 Outpatient [facility] [id number] Memoria 20:03:00 05:59:00 r Lynden 06 l [facility] 2017-12-21 2017-12-21 AppointFLIP Bolaños [place] [id number] [place] 09:15:00 09:15:00 t; Family Pepe GANDARA M.D. Practice mahogany GANDARA M.D. 2017-11-23 2017-11-23 FLIP Diallo [place] [id number] [place] 13:30:00 13:30:00 t; Family Pepe GANDARA M.D. Practice mahogany GANDARA M.D. 2017-09-27 2017-09-27 AppointFLIP Bentley UTP [id number] [place] 09:45:00 09:45:00 t; ABUNDIO WILKERSON Phy sici SHAO-CHUN, D.O. ans D.OMine 2017-06-29 2017-06-29 AppointFLIP Bolaños UTP [id number] [place] 11:00:00 11:00:00 t; Pepe GANDARA M.D. ans WILLIAM, M.D. 2017-06-11 2017-06-11 AppointFLIP Zaman UTP [id number] [place] 12:45:00 12:45:00 t; GILBERTO ORELLANA Physic i KRISTY, M.D. ans M.D. 2017-06-08 2017-06-08 Appointmen FLIP WILKERSON UTP [id number] [place] 16:15:00 16:15:00 t; ABUNDIO WILKERSON Phy sici SHAO-CHUN, D.O. ans D.O. 2017-03-03 2017-03-04 Outpatient [facility] [id number] Memoria 16:05:00 04:59:00 r Kirk 05 l [facility] 2017-01-18 2017-01-18 Appointmen FLIP CASTILLO UTP [id number] [place] 11:20:00 11:20:00 t; ALVARO CASTILLO Phys ici JOSEPH, M.D. ans M.D. 2016-12-29 2016-12-29 Appointmen FLIP PUTNAM [place] [id number] [place] 11:00:00 11:00:00 t; Family Pepe GANDARA M.D. Practice ans WILLIAM, M.D. 2016-09-23 2016-09-23 AppointFLIP Bolaños UTP [id number] UT 10:30:00 10:30:00 t; Pepe GANDARA M.D. ans WILLIAM, M.D. 2016-08-11 2016-08-11 Appointmen FLIP PUTNAM UTP [id number] UT 10:00:00 10:00:00 t; Pepe GANDARA M.D. ans WILLIAM, M.D. 2016-07-21 2016-07-21 FLIP Diallo UTP [id number] UT 10:00:00 10:00:00 t; Pepe GANDARA M.D. ans WILLIAM, M.D. 2016-07-13 2016-07-13 Appointmen FLIP CASTILLO UTP [id number] UT 11:20:00 11:20:00 t; ALVARO CASTILLO Phys ici JOSEPH, M.D. ans M.D. 2016-06-30 2016-06-30 Day [facility] [id number] Memoria 10:31:00 14:48:00 Surgery r Kirk 03 l [facility] 2016-06-27 2016-06-28 Emergency [facility] [id number] Memoria 19:47:00 01:33:00 r Kirk 04 l [facility] 2016-06-23 2016-06-23 Appointmen FLIP PUTNAM UTP [id number] [place] 10:15:00 10:15:00 t; Pepe GANDARA M.D. ans WILLIAM, M.D. 2016-06-15 2016-06-15 Appointmen FLIP CASTILLO UTP [id number] UT 10:00:00 10:00:00 t; ALVARO CASTILLO Phys ici JOSEPH, M.D. ans M.D. 2016-06-12 2016-06-13 [facility] [id number] Memoria 19:38:00 04:59:00 Services r Outpatient 07 l Imaging - Jorje n [place] 2016-06-12 2016-06-12 Appointmen CJ CLIFFORD, [facility] UTP [id number] [place] 13:30:00 13:30:00 t; KJ CLIFFORD Physi ci CJ, BEZEL CUTTER [facility] 2016-05-20 2016-05-20 [facility]AN, [facility] UTP [id number] [place] 13:15:00 13:15:00 t; JIM DAVIS NP Phy sici JIM, KJ [facility] 2016-04-30 2016-05-01 Outpt Diag nullFlavo [facility] [id number] Memoria 17:28:00 04:59:00 Services r Outpatient 06 l Imaging - Jorje n [place] 2016-04-29 2016-04-30 Outpt Diag nullFlavo [facility] [id number] Memoria 15:45:00 04:59:00 Services r Outpatient 05 l Imaging - Jorje n [place] 2016-04-29 2016-04-29 [facility] [id number] [place] 09:30:00 09:30:00 t; Ozzy BEACH i, M.D. ans HUBERT, M.D. 2016-03-23 2016-03-23 [facility] [id number] [place] 11:00:00 11:00:00 t; Ozzy BEACH i, M.D. ans HUBERT, M.D. 2016-01-28 2016-01-29 [facility] [id number] Memoria 17:25:00 04:59:00 r Lynden 02 [facility] 2016-01-06 2016-01-06 [facility] [id number] [place] 12:00:00 12:00:00 t; Ozzy BEACH i, M.D. ans HUBERT, M.D. 2015-01-16 2015-01-17 Outpatient nullFlavo [facility] [id number] Memoria 16:57:00 05:59:00 r Lynden 01 [facility] Results Test Description Test Time Test Comments Results Result [facility] e Comments - XR KNEE 1 OR 2 V 2022-03-11 RT 06:59:00 [facility] : 1955 Sex: F Patient Name: MICHAEL COURTNEY Unit No: [id number] EXAMS: CPT CODE: [id number] XR KNEE 1 OR 2 V RT 19103 RIGHT KNEE 2 VIEWS PORTABLE COMMENT: The patient is status post joint replacement which is articulating normally. at 0659 Reported and signed by: Axel Gaspar MD CC: Jose Gilliam MD Technologist: TICO POLLARD RT(R) Transcribed D/ (0659) SherryJCL [facility] NAME: MICHAEL COURTNEY [address] [facility] PHYS: Jose Nguyen MD : 1955 AGE: 66 SEX: F [place] [address] LOC: Y.303 A PHONE #: [phone] EXAM DATE: 03/10/2022 STATUS: ADM IN FAX #: [phone] RAD #: D/C DT PAGE 1 Signed Report Patient Name: MICHAEL COURTNEY Unit No: [id number] EXAMS: CPT CODE: [id number] XR KNEE 1 OR 2 V RT 06425 <Continued> Orig Print D/T: S: 03/11/2022 (0702) [facility] NAME: MICHAEL COURTNEY [address] [facility] PHYS: Jose Nguyen MD : 1955 AGE: 66 SEX: F [place], [place] [address] LOC: Y.303 A PHONE #: [phone] EXAM DATE: 03/10/2022 STATUS: ADM IN FAX #: [phone] RAD #: D/C DT PAGE 2 Signed Report BASIC METABOLIC PANEL 2022-03-11 06:41:00 Test Item Value Reference Range Interpretation Comme nts SODIUM (test code = NA) 140 mmol/L 136-145 N POTASSIUM (test code = K) 4.2 mmol/L 3.5-5.1 N CHLORIDE (test code = CL) 104.0 mmol/L 98-107 N CARBON DIOXIDE (test code = 26.8 mmol/L 21-32 N CO2) GLUCOSE (test code = GLU) 130 mg/dL 70-110 H BLOOD UREA NITROGEN (test code 10 mg/dL 7-18 N = BUN) GLOMERULAR FILTRATION RATE 70.2 >60 U nit of measure: (test code = GFR) mL/min/1.7 3 [id number] Range:Healthy A dults >90 mL/min/1.73 m2 For Chronic Kidney Disease: Stage II Mi ld Decrease in GFR 60-9 0 Stage III Moderate Decrease in GFR 30-59 Stage IV Severe Decrease in GFR 15-29 Stage V Kidney Failure <15 CREATININE (test code = CREAT) 0.82 mg/dL 0.55-1.30 N CALCIUM (test code = CA) 8.5 mg/dL 8.2-10.1 N SPECIMEN COMMENT: POD #[id number] 05:55:00 Test Item Value Reference Range Interpretation Comments HEMOGLOBIN (test code = HGB) 11.6 g/dL 12-16 L HEMATOCRIT (test code = HCT) 34.8 % 37-47 L SPECIMEN COMMENT: POD #1COMPREHENSIVE METABOLIC [id number] 12:35:00 Test Item Value Reference Range Interpretation Comments SODIUM (test code = 141 mmol/L 136-145 N NA) POTASSIUM (test code = 4.2 mmol/L 3.5-5.1 N K) CHLORIDE (test code = 103.0 mmol/L 98-107 N CL) CARBON DIOXIDE (test 27.2 mmol/L 21-32 N code = CO2) GLUCOSE (test code = 105 mg/dL 70-110 N GLU) BLOOD UREA NITROGEN 12 mg/dL 7-18 N (test code = BUN) GLOMERULAR FILTRATION 64.7 >60 Unit o f measure: RATE (test code = GFR) mL/mi n/1.73 [id number] Range:Healthy Adults >90 mL/min/1.73 m2 For Chronic Kidney Disease: St age II Mild Decrease in GFR 60-90 St age III Moderate Decrease in GFR 30-59 Stage IV Severe Decre ase in GFR 15- 29 Stage V Kidney Failure <15 CREATININE (test code 0.88 mg/dL 0.55-1.30 N = CREAT) TOTAL PROTEIN (test 7.4 g/dL 6.4-8.2 N code = PROT) ALBUMIN (test code = 4.0 g/dL 3.4-5.0 N ALB) GLOBULIN (test code = 3.4 g/dL 2.2-4.2 N GLOB) ALBUMIN/GLOBULIN RATIO 1.2 0.7-2.0 N (test code = A/G) CALCIUM (test code = 9.2 mg/dL 8.2-10.1 N CA) BILIRUBIN TOTAL (test 0.50 mg/dL 0.2-1.00 N code = BILT) SGOT/AST (test code = 26.0 U/L 15-37 N AST) SGPT/ALT (test code = 37.0 U/L 12-78 N Please note new ALT) normal range. ALKALINE PHOSPHATASE 72 U/L 46-116 N TOTAL (test code = ALKP) CBC W/AUTO [id number] 11:51:00 Test Item Value Reference Range Interpretation Comments WHITE BLOOD CELL (test code = WBC) 5.2 K/mm3 5.8-11.0 L RED BLOOD CELL (test code = RBC) 4.66 M/mm3 4.2-5.4 N HEMOGLOBIN (test code = HGB) 14.7 g/dL 12-16 N HEMATOCRIT (test code = HCT) 43.7 % 37-47 N MEAN CELL VOLUME (test code = MCV) 94 fL 80-98 N MEAN CELL HGB (test code = MCH) 31.5 pg 27-34 N MEAN CELL HGB CONCENTRATION (test 33.6 g/dL 30.8-34.1 N code = MCHC) RED CELL DISTRIBUTION WIDTH (test 13.6 % 11-16 N code = RDW) PLT (test code = PLT) 258 K/mm3 130-400 N MEAN PLATELET VOLUME (test code = 10.6 fL 8.9-12.1 N MPV) NEUTROPHIL % (test code = NT%) 56.3 % 45-70 N LYMPHOCYTE % (test code = LY%) 29.9 % 20-40 N MONOCYTE % (test code = MO%) 8.5 % 3-10 N EOSINOPHIL % (test code = EO%) 3.9 % 1-5 N BASOPHIL % (test code = BA%) 1.2 % 0.0-1.1 H NEUTROPHIL # (test code = NT#) 2.90 K/mm3 2.00-7.50 N LYMPHOCYTE # (test code = LY#) 1.54 K/mm3 1.50-4.00 N MONOCYTE # (test code = MO#) 0.44 K/mm3 0.2-0.8 N EOSINOPHIL # (test code = EO#) 0.20 K/mm3 0.04-0.4 N BASOPHIL # (test code = BA#) 0.06 K/mm3 0.02-0.10 N MANUAL DIFF REQUIRED (test code = NO MANUAL DIFF MDIFF) NUCLEATED RED BLOOD CELL (test 0 % 0-0 N code = NRBC) MA Digital Mammo Screen Ankit w ingrid [id number] 13:40:00BILATERAL DIGITAL SCREENING MAMMOGRAM 3D/2D WITH CAD: 1CLINICAL: /Screen. Current study was evaluated with a Computer Aided Detection (CAD) system. COMPARISON:Comparison is made to exams dated: 12/27/2019 mammogram, 12/23/2018mammogram, 12/21/2017 mammogram, 03/03/2017 mammogram, 01/28/2016 mammogram, and01/16/2015 mammogram - [facility]. TECHNIQUE: Digital Breast Tomosynthesis wasperformed and utilized forInterpretation. [employer] Version 1.3 was utilized for computer aided detection. FINDINGS:There are scattered fibroglandular densities in both breasts. There is a stable benign appearing nodule in the right breast. There also arestable benign appearing nodules in the left breast. No significant masses, calcifications, or other findings are seen in eitherbreast. There has beenno significant interval change.IMPRESSION: BENIGNRECOMMENDATION:There is no mammographic evidence ofmalignancy. A 1 yearscreening mammogram is recommended.(01/01/2022) This exam was interpreted [id number] for [facility]. Lucina Galeano M.D. ap/penrad:01/06/2021 12:07:38 ImagingTechnologist(s): Chrystal Carrizales [facility]: BI-RADS 1/2 Mammogram BI-RADS: 2 Benign--Read by: Lucina Galeano MDDictated Date/time: 01/06/21 12:07Electronically Signed by : Lucina Galeano MD 01/06/2112:07FINAL REPORTUT PhysiciansNO READ Outside Films Ref Only [id number] 17:00:00 Test Item Value Reference Range Interpretation Comments NO READ Outside Films Cancel Reason: Exam Ref Only CT (test code Replaced = NO READ Outside Films Ref Only CT) [facility] PhysiciansUS Pelvis with Pelvis Transvaginal [id number] 15:27:00 PROCEDURE INFORMATION:Exam: US Pelvis Complete, Transabdominal and US Pelvis, TransvaginalExam date and time: 01/02/2020 3:31 PMAge: 64 years oldClinical indication: Postmenopausal bleeding; Additional info: /post- menopausalbleedingTECHNIQUE:Imaging protocol: Real-time transabdominal and transvaginal pelvic ultrasound(complete) with image documentation. Transvaginal imaging was used for betterevaluation of the endometrium and adnexa.COMPARISON:No relevant prior studies available.FINDINGS: Transabdominal images of the pelvis show the urinary bladder is unremarkable.The anteverted uterus measures 9.3 x 2.5 x 3.9 cm in size. Endometrialechostripe thickness is 2 mm. Ovaries are not identified transabdominally. The transvaginal exam shows normal uterine parenchymal echotexture. The uterusis retroverted. The endometrial stripe measures 3.4 mm in thickness. Nabothiancysts. The right ovary measures 1.3 x1.1 x 1.1 cm. The left ovary measures 2.4 x 1.3 x 1.2 cm. The ovaries have a normal sonographic appearance. There is no adnexal mass. There is no free fluid in the cul-de-sac.IMPRESSION:1. Unremarkablepelvic ultrasound.2. Normal endometrial echo stripe thickness.3. No uterine fibroid.Cm Gomes On 01/02/2020 17:00:34; [id number] by: Cm Barnes MDDictated Date/time: 01/02/20 17:00Electronically Signed by: Cm Barnes MD 01/02/2017:00FINAL REPORTUT [facility]. [facility] - PAP 2020-01-01 00:00:00 Test Item Value Reference Range Interpretation Comments Case (test code = Click ImageLink button N Case) for report. Specimen 1 (test code Click ImageLink button N = Specimen 1) for report. [facility] Digital Mammo Screen Ankit w ingrid [id number] 10:26:00 BILATERAL DIGITAL SCREENING MAMMOGRAM 3D/2D WITH CAD: 12/27/2019CLINICAL: /Screening. Current study was evaluated with a Computer Aided Detection (CAD) system. COMPARISON:Comparison is made to exams dated: 12/23/2018 mammogram and 12/21/2017mammogram - [facility]. TECHNIQUE: Digital Breast Tomosynthesis was performed and utilized forInterpretation. [employer] Version 1.3 was utilized for computer aided detection. FINDINGS:There are scattered fibroglandular densities in both breasts. There is a stable benign appearing nodule in the right breast. There also arestable benign appearing nodules in the left breast. No significant masses, calcifications, or other findings are seen in eitherbreast. There has been no significant interval change.IMPRESSION: BENIGNRECOMMENDATION:There is no mammographic evidence of malignancy. A 1 yearscreening mammogram is recommended.(12/27/2020) This examwas interpreted [id number] for [facility]. Lucina Galeano M.D. ap/penrad:12/27/2019 14:42:24 Rn Telephonic(s): [facility]-RADS 1/2 Mammogram BI-RADS: 2 Benign--Read by: Lucina Galeano MDDictated Date/time: 12/27/19 14:42Electronically Signed by: Lucina Galeano MD 12/27/2013:42FINAL REPORTUT [id number] 16:36:00 RUN DATE: 06/20/19 [facility] - LAB *LIVE* PAGE 1 RUN TIME: 1636 Specimen Inquiry RUN USER: INTERFACE PATIENT: MICHAEL COURTNEY LOC: REGGIEU U #: [id number] AGE/SX: 63/F ROOM: RE06/16/19REG DR: Jari Gonzales MD : 59 BED: DIS: STATUS: [facility] [place] TLOC: SPEC #: [id number] RECD: 06/16/19 STATUS: ERNESTINE REQ #: [id number] CHARISMA: 06/16/19 [facility] DR: Jair Gonzales MD ENTERED: 06/16/19 SP TYPE: SURG OTHR DR: Antonieta Arevalo MD ORDERED: SURG PATH LVL 4 [place]: [place] [id number] [facility] [address] [place] [address] [email or web address] [id number] [place] [id number] HISTOLOGY: TISSUE ID BLK PCS TINY LEV PROCEDURE DISPOSITION ____ ___ ___ ___ URINARY BLADDER A 1 2 PROCEDURES: SURG PATH LVL 4 (06/16/19-1420) TISSUES: A. URINARY BLADDER, NOS - BLADDER BIOPSY CLINICAL HISTORY HEMATURIA -R31.9 CPT CODES CPT CODE(S): 14057 , , , , , , FINAL DIAGNOSIS Urinary bladder, biopsy: CHRONIC CYSTITIS GROSS DESCRIPTION Bladder biopsy. Received in formalin are five montoya-brown tissue fragments, 0.2 cm each, all as A. ba/nr Grossing performed at [facility] Pathology, [facility], [address], [place] [address]. Coordinating Producer: Niko Hansen M.D. CONTINUED ON NEXT PAGE RUN DATE: 06/20/19 [facility] - LAB *LIVE* PAGE 2 RUN TIME: 1636 Specimen Inquiry RUN USER: INTERFACE SPEC #: [id number] PATIENT: MARICEL COURTNEY #[id number] (Continued) MICROSCOPIC DESCRIPTION Bladder biopsy. Sections demonstrate urothelium with mild chronic inflammation. Inflammation extends to involve the underlying stroma. The urothelium demonstrates a slightly reactive appearance with no evidence of dysplasia or malignancy. Signed SIGNATURE ON FILE Isma Holden 06/20/19 1636 END OF REPORT US Pelvis with Pelvis Transvaginal [id number] 13:44:00EXAM: US PELVIS TRANSABDOMINALEXAM: US PELVIS TRANSVAGINALDATE: 01/12/2018 1:34 PM CSTINDICATION: - R10.32 Left lower quadrant pain, UNSPECIFIED DYSPAREUNIACOMPARISON: 06/12/2016TECHNIQUE: Multiplanar grayscale and color Doppler ultrasound images of thepelvis were obtained transabdominally through adistended urinary bladderfollowed by transvaginal examination postvoid. Transvaginal scanning waslimi eliezer.FINDINGS:Uterus: Size: 6.9 x 3.3 x 3.5 cm Masses: None. Cervix: Nabothian cysts.Endometrium:5 mm. Homogeneous.Right ovary: Size: 2.8 x 0.9 x 2 cm Cysts: None. Masses: None.Left ovary: Size: 2.4 x 1 x 1.7 cm Cysts: None. Masses: None.Adnexa: Normal.Free fluid: None.Other findings: None.IMPRESSION:Normal appearing uterus and ovaries. No adnexal mass.Homogeneous endometrium measuring up to 5 mm.--Read by: Gregory Gagnon MDDictated Date/time: 01/12/18 14:40Electronically Signed by: Gregory Gagnon MD 01/12/1814:41FINAL REPORTUT [facility]. [facility] - [id number] 00:00:00 Test Item Value Reference Range Interpretation Comments PAP REPORT (test code = 23955-6) See Comment [facility] Digital Mammo Screening Ankit [id number] 14:42:00BILATERAL DIGITAL SCREENING MAMMOGRAM WITH CAD: 12/21/2017CLINICAL: /Routine. Current study was evaluated with a Computer Aided Detection (CAD) system. COMPARISON:Comparison is made to exams dated: 03/03/2017 mammogram, 01/28/2016mammogram, 01/16/2015 mammogram - [facility], 01/04/2014mammogram - [facility], and 12/29/2012 mammogram - [facility]. TECHNIQUE: Mammographic views were obtained using digital acquisition. [employer]apa 1.3 was utilized for computer aided detection. FINDINGS:There are scattered fibroglandular densities in both breasts. There is a benign appearing nodule in the right breast. There also are benignappearing nodules in the left breast. No significant masses, calcifications, or other findings are seen in eitherbreast. There has beenno significant interval change.IMPRESSION: BENIGNRECOMMENDATION:There is no mammographic evidence ofmalignancy. A 1 yearscreening mammogram is recommended.(2018) This exam was interpreted [id number] for [facility]. Anali boles/nadia:12/21/2017 15:36:25 Imaging Te chnologist(s): Flores Zamora [facility] BI- RADS 1/2 Mammogram BI-RADS: 2 Benign--Read by: Anali Woodall MDDictated Date/time: 12/21/17 15:36Electronically Signed by: Anali Woodall MD 12/21/1814:36FINAL REPORTUT Physicians[[facility]] CMP [id number] 15:39:00 Test Item Value Reference Range Interpretation Comments Sodium Level 140 {mEq/l} 135-145 (test code = Sodium Level) Potassium Level 3.5 {mEq/l} 3.5-5.1 (test code = Potassium Level) Chloride Level 104 {mEq/l} 95-109 (test code = Chloride Level) Carbon Dioxide 24 {mEq/l} 24-32 (test code = Carbon Dioxide) AGAP (test code = 15.5 {mEq/l} 10.0-20.0 AGAP) Glucose Lvl (test 90 mg/dl 70-99 Adult refe rence range code = Glucose values reflec t the Lvl) clinical guidel inesof the [place] Diabet es Association. Creatinine Lvl 0.70 mg/dl 0.50-1.40 (test code = Creatinine Lvl) Blood Urea 8 mg/dl 7-22 Nitrogen (test code = Blood Urea Nitrogen) BUN/Creatinine 11 6-25 Ratio (test code = BUN/Creatinine Ratio) Total Protein 8.0 g/dl 6.4-8.4 (test code = 04897-6) Albumin Lvl (test 4.4 g/dl 3.5-5.0 code = 1751-7) Globulin (test 3.6 g/dl 2.7-4.2 code = Globulin) A/G Ratio (test 1.2 0.7-1.6 code = A/G Ratio) Calcium Level 9.7 mg/dl 8.5-10.5 Total (test code = Calcium Level Total) ALT (test code = 25 u/l 0-65 1742-6) AST (test code = 20 u/l 0-37 1916-6) Bili Total (test 0.5 mg/dl 0.2-1.3 code = 86344-0) Alk Phos (test 70 u/l 39-136 code = 1783-0) eGFR (test code = 95 The eGFR i s calculated eGFR) {ML/MIN/1.7} using the CKD-E PI formula. In mos t young, healthyindividu als the eGFR will be >9 0 mL/min/1.73m2. The eGFR declines with a ge. AneGFR of 60-89 may be normal in some population s, particularly th e elderly, forwhom the CKD -EPI formula has not been extensively leigh idated. Use of the eGFR isnot recommended in the following populations:Ind ividuals with unstable c reatinine concentrations, including patient s and those with seri ous co-morbid conditions.Gina ents with extremes in mus lakisha mass or diet.The silvestre a above are obtained fr om the National Kidney Disease Education Progr am(NKDEP) which conner tillman recommends that when the eGFR is used in patientswith ex tremes of body mass index for purposes of pete g dosing, the eGFR should be multiplied by t he estimated BMI. [facility]] TSH, 3RD GENERATION W/REFLEX TO [id number] 15:39:00 Test Item Value Reference Range Interpretation Comments TSH (test code = 25328-4) 1.780 {uIU/ml} 0.360-3.740 [facility][Q] LIPID PANEL WITH REFLEX TO DIRECT [id number] 15:39:00 Test Item Value Reference Range Interpretation Comments Chol (test code = Chol) 174 mg/dl <=199 Trig (test code = 2571-8) 51 mg/dl <=149 HDL Cholesterol (test code = HDL 86 mg/dl >=61 Cholesterol) LDL (test code = LDL) 78 mg/dl <=99 VLDL (test code = VLDL) 10 CHD Risk (test code = CHD Risk) 2.02 3.90-5.80 [place] [id number] 11:19:00 Test Item Value Reference Range Interpretation Comments Potassium Lvl (test code = Potassium 3.4 3.5-5.1 Lvl) [id number] 22:46:00 Test Item Value Reference Range Interpretation Comments Monocytes (test code = Monocytes) 9.3 2.0-12.0 [facility]AlixwgrXIQBWTKINP1394-85-33 22:46:00 Test Item Value Reference Range Interpretation Comments Segs (test code = Segs) 57.3 45.0-75.0 [facility] HospitalUvqpfbyYFYMBPEDFP8261-38-29 22:46:00 Test Item Value Reference Range Interpretation Comments Lymphocytes (test code = Lymphocytes) 31.4 20.0-40.0 [facility] ArlingtonXnptlieBTOKQLMWZB6799-90-08 22:46:00 Test Item Value Reference Range Interpretation Comments Eosinophils (test code = 1.2 See_Comment [A utomated message] The Eosinophils) system which ge nerated this result tra nsmitted reference range : <=4.0. The reference r juan was not used to int erpret this result as normal/abnormal . [facility] ArlingtonCHEM [id number] 22:46:00 Test Item Value Reference Range Interpretation Comments Magnesium Lvl (test code = Magnesium 2.0 1.8-2.4 Lvl) [facility] HospitalIcivfozJXZRZZQKIBKS9677-01-20 22:46:00 Test Item Value Reference Range Interpretation Comments AGAP (test code = AGAP) 13.1 10.0-20.0 [facility] HospitalReyulyhUDMSPFDXQDIL4814-63-78 22:46:00 Test Item Value Reference Range Interpretation Comments eGFR (test code = eGFR) 73 [facility] HospitalEglhopjOSFZVHTIDEKB2211-34-61 22:46:00 Test Item Value Reference Range Interpretation Comments Glucose Lvl (test code = Glucose Lvl) 90 70-99 [facility] HospitalIqugiwlWABUSHLSXSDJ9562-04-22 22:46:00 Test Item Value Reference Range Interpretation Comments Sodium Lvl (test code = Sodium Lvl) 139 135-145 [facility] HospitalAjhdhpvZHOEIZMSPCRO3398-64-76 22:46:00 Test Item Value Reference Range Interpretation Comments CO2 (test code = CO2) 29 24-32 [facility] HospitalYtaqtjcECMGUNSAYEJI0968-70-43 22:46:00 Test Item Value Reference Range Interpretation Comments Creatinine Lvl (test code = Creatinine 0.88 0.50-1.40 Lvl) [facility] HospitalWkgjpjnRRMJJPMONNGY0451-19-43 22:46:00 Test Item Value Reference Range Interpretation Comments BUN (test code = BUN) 8 7-22 [facility] HospitalQeyuibcBMNNMYWMCWCW7096-60-06 22:46:00 Test Item Value Reference Range Interpretation Comments Chloride Lvl (test code = Chloride Lvl) 100 95-109 [facility] HospitalPifyiyeCLHIJYFSDLHE6411-17-31 22:46:00 Test Item Value Reference Range Interpretation Comments Potassium Lvl (test code = Potassium 3.1 3.5-5.1 Lvl) [facility] HospitalZtgumstCYMZZQGPSMQA5874-25-04 22:46:00 Test Item Value Reference Range Interpretation Comments Calcium Lvl (test code = Calcium Lvl) 9.0 8.5-10.5 [facility] HospitalYyaijdoQPVIGPYHEB5695-30-51 22:46:00 Test Item Value Reference Range Interpretation Comments MCH (test code = MCH) 30.6 pg 27.0-31.0 [facility] HospitalMamshrhEBQZMJPGII9514-38-46 22:46:00 Test Item Value Reference Range Interpretation Comments MCV (test code = MCV) 89.7 80.0-98.0 [facility] HospitalPyavvqhQZYUKVSNZU6235-02-63 22:46:00 Test Item Value Reference Range Interpretation Comments Hct (test code = Hct) 41.7 36.0-48.0 [facility] HospitalTsahxmpBHTYLVAULC3187-14-47 22:46:00 Test Item Value Reference Range Interpretation Comments Hgb (test code = Hgb) 14.2 12.0-16.0 [facility] H[id number] 22:46:00 Test Item Value Reference Range Interpretation Comments RDW (test code = RDW) 14.3 11.5-14.5 [facility] HospitalYtrryhcTBSUJKLMHM9363-26-63 22:46:00 Test Item Value Reference Range Interpretation Comments MPV (test code = MPV) 7.9 7.4-10.4 [facility] HospitalZuimbxhWAMPJBMRMQ5139-41-40 22:46:00 Test Item Value Reference Range Interpretation Comments Platelet (test code = Platelet) 246 133-450 [facility] HospitalUxjyylyOWJAUHRZAE3528-72-48 22:46:00 Test Item Value Reference Range Interpretation Comments MCHC (test code = MCHC) 34.1 32.0-36.0 [facility] HospitalCobkjwxVUIGYGQLFE8793-24-84 22:46:00 Test Item Value Reference Range Interpretation Comments RBC (test code = RBC) 4.65 4.20-5.40 [facility] HospitalSfurfgdDPFIHCATUV5084-73-75 22:46:00 Test Item Value Reference Range Interpretation Comments WBC (test code = WBC) 6.4 3.7-10.4 [facility] HospitalOqbvqeaVPWEDFBWYD5973-61-14 22:46:00 Test Item Value Reference Range Interpretation Comments Basophils # (test code 0.1 See_Comment [Aut omated message] The = Basophils #) system which generated this result tra nsmitted reference range : <=0.2. The reference r juan was not used to int erpret this result as normal/abnormal . [facility] HospitalZbteinfSDEVFKAKKF3534-86-41 22:46:00 Test Item Value Reference Range Interpretation Comments Monocytes # (test code 0.6 See_Comment [Aut omated message] The = Monocytes #) system which generated this result tra nsmitted reference range : <=0.8. The reference r juan was not used to int erpret this result as normal/abnormal . [facility] HospitalBfkbvekRRPQVKSGTT6448-17-36 22:46:00 Test Item Value Reference Range Interpretation Comments Eosinophils # (test code 0.1 See_Comment [A utomated message] The = Eosinophils #) system whic h generated this result tra nsmitted reference range : <=0.5. The reference r juan was not used to int erpret this result as normal/abnormal . [facility] HospitalRbelehxJYVIDDECVM5630-28-54 22:46:00 Test Item Value Reference Range Interpretation Comments Segs-Bands # (test code = Segs-Bands #) 3.7 1.5-8.1 [facility] HospitalGyprruuGYBVFKYPCM2219-11-36 22:46:00 Test Item Value Reference Range Interpretation Comments Lymphocytes # (test code = Lymphocytes 2.0 1.0-5.5 #) [facility] HospitalBizdrkbOFPSUYNMWE9186-04-99 22:46:00 Test Item Value Reference Range Interpretation Comments Basophils (test code = 0.8 See_Comment [Aut omated message] The Basophils) system which ge nerated this result tra nsmitted reference range : <=1.0. The reference r juan was not used to int erpret this result as normal/abnormal . [facility] AND [id number] 20:08:00 Test Item Value Reference Range Interpretation Comments UA Sq Epi (test code = UA Sq Moderate /LPF Epi) [facility] AND [id number] 20:08:00 Test Item Value Reference Range Interpretation Comments UA RBC (test code = 0-2 /HPF See_Comment [Automa eliezer message] The UA RBC) system which ge nerated this result tra nsmitted reference range : <=2. The reference range was not used to interpr et this result as franco l/abnormal. [facility] AND [id number] 20:08:00 Test Item Value Reference Range Interpretation Comments UA WBC (test None Seen See_Comment [Automated mes judy] code = UA WBC) (06/27/16 3:08 The system w hich PM) generated this result transmitted ref erence range: <=5. The reference range was not used to int erpret this result as normal/abnormal . [facility] AND [id number] 20:08:00 Test Item Value Reference Range Interpretation Comments UA Bacteria (test code = None Seen (06/27/16 UA Bacteria) 3:08 PM) [facility] AND [id number] 20:08:00 Test Item Value Reference Range Interpretation Comments UA Spec Grav (test code *NA*(06/27/16 3:08 PM) = UA Spec Grav) [facility] AND [id number] 20:08:00 Test Item Value Reference Range Interpretation Comments UA Protein (test code Negative (06/27/16 3:08 = UA Protein) PM) [facility] AND [id number] 20:08:00 Test Item Value Reference Range Interpretation Comments UA pH (test code = UA pH) 7.5 1 5.0-8.0 [facility] AND [id number] 20:08:00 Test Item Value Reference Range Interpretation Comments UA Leuk Est (test Negative (06/27/16 3:08 code = UA Leuk Est) PM) [facility] AND [id number] 20:08:00 Test Item Value Reference Range Interpretation Comments UA Glucose (test code Negative (06/27/16 3:08 = UA Glucose) PM) [facility] AND [id number] 20:08:00 Test Item Value Reference Range Interpretation Comments UA Ketones (test code Negative *NA*(06/27/16 = UA Ketones) 3:08 PM) [facility] AND [id number] 20:08:00 Test Item Value Reference Range Interpretation Comments UA Color (test code = Yellow *NA*(06/27/16 UA Color) 3:08 PM) [facility] AND [id number] 20:08:00 Test Item Value Reference Range Interpretation Comments UA Turbidity (test code = Clear (8/13/16 3:08 UA Turbidity) PM) [facility] [facility] AND [id number] 20:08:00 Test Item Value Reference Range Interpretation Comments UA Blood (test code = Negative (06/27/16 3:08 UA Blood) PM) [facility] AND [id number] 20:08:00 Test Item Value Reference Range Interpretation Comments UA Bili (test code = Negative *NA*(06/27/16 UA Bili) 3:08 PM) [facility] [facility] AND [id number] 20:08:00 Test Item Value Reference Range Interpretation Comments UA Nitrite (test code Negative (06/27/16 3:08 = UA Nitrite) PM) [facility] [facility] AND [id number] 20:08:00 Test Item Value Reference Range Interpretation Comments UA Urobilinogen (test code = UA 0.2 0.1-1.0 Urobilinogen) [employer] [id number] 19:26:00 Test Item Value Reference Range Interpretation Comments Antibody Scrn (test Negative (06/22/16 2:26 code = Antibody Scrn) PM) [facility] [employer] [id number] 19:26:00 Test Item Value Reference Range Interpretation Comments ABO/Rh (test code = ABO/Rh) O POS [facility] [employer] [id number] 19:26:00 Test Item Value Reference Range Interpretation Comments eGFR (test code = eGFR) 68 [facility] [employer] [id number] 19:26:00 Test Item Value Reference Range Interpretation Comments B/C Ratio (test code = B/C Ratio) 16 6-25 [facility] [employer] [id number] 19:26:00 Test Item Value Reference Range Interpretation Comments Calcium Lvl (test code = Calcium Lvl) 9.0 8.5-10.5 [facility] [employer] [id number] 19:26:00 Test Item Value Reference Range Interpretation Comments Bili Total (test code = Bili Total) 0.5 0.2-1.3 [facility] [employer] [id number] 19:26:00 Test Item Value Reference Range Interpretation Comments AST (test code = AST) 17 See_Comment [Auto mated message] The system which ge nerated this result transmit eliezer reference range : <=37. The reference range was not used to interpr et this result as franco l/abnormal. [facility]2016-08-08 19:26:00 Test Item Value Reference Range Interpretation Comments ALT (test code = ALT) 27 See_Comment [Auto mated message] The system which ge nerated this result transmit eliezer reference range : <=65. The reference range was not used to interpr et this result as franco l/abnormal. [facility]2016-08-08 19:26:00 Test Item Value Reference Range Interpretation Comments Alk Phos (test code = Alk Phos) 62 39-136 [facility]2016-08-08 19:26:00 Test Item Value Reference Range Interpretation Comments A/G Ratio (test code = A/G Ratio) 0.9 0.7-1.6 [facility]2016-08-08 19:26:00 Test Item Value Reference Range Interpretation Comments Globulin (test code = Globulin) 3.6 2.7-4.2 [facility]2016-08-08 19:26:00 Test Item Value Reference Range Interpretation Comments Total Protein (test code = Total 7.0 6.4-8.4 Protein) [facility]2016-08-08 19:26:00 Test Item Value Reference Range Interpretation Comments Albumin Lvl (test code = Albumin Lvl) 3.4 3.5-5.0 [facility]2016-08-08 19:26:00 Test Item Value Reference Range Interpretation Comments AGAP (test code = AGAP) 11.7 10.0-20.0 [facility]2016-08-08 19:26:00 Test Item Value Reference Range Interpretation Comments CO2 (test code = CO2) 31 24-32 [facility]2016-08-08 19:26:00 Test Item Value Reference Range Interpretation Comments Chloride Lvl (test code = Chloride Lvl) 100 95-109 [facility]2016-08-08 19:26:00 Test Item Value Reference Range Interpretation Comments Potassium Lvl (test code = Potassium 2.7 3.5-5.1 Lvl) [facility]2016-08-08 19:26:00 Test Item Value Reference Range Interpretation Comments Creatinine Lvl (test code = Creatinine 0.94 0.50-1.40 Lvl) [facility]2016-08-08 19:26:00 Test Item Value Reference Range Interpretation Comments Sodium Lvl (test code = Sodium Lvl) 140 135-145 [facility]2016-08-08 19:26:00 Test Item Value Reference Range Interpretation Comments BUN (test code = BUN) 15 7-22 [facility]2016-08-08 19:26:00 Test Item Value Reference Range Interpretation Comments Glucose Lvl (test code = Glucose Lvl) 87 70-99 [facility] HospitalDclwhorTVBWWWANJN8035-14-05 19:26:00 Test Item Value Reference Range Interpretation Comments Monocytes # (test code 0.6 See_Comment [Aut omated message] The = Monocytes #) system which generated this result tra nsmitted reference range : <=0.8. The reference r juan was not used to int erpret this result as normal/abnormal . [facility] HospitalRuylgwiQLBBZMSBDV9957-43-36 19:26:00 Test Item Value Reference Range Interpretation Comments Eosinophils # (test code 0.1 See_Comment [A utomated message] The = Eosinophils #) system whic h generated this result tra nsmitted reference range : <=0.5. The reference r juan was not used to int erpret this result as normal/abnormal . [facility] HospitalWfroygwYRXIDSMBYI6103-44-48 19:26:00 Test Item Value Reference Range Interpretation Comments Segs-Bands # (test code = Segs-Bands #) 3.4 1.5-8.1 [facility] HospitalYxfmngrLEAUFPEMYE8821-25-13 19:26:00 Test Item Value Reference Range Interpretation Comments Lymphocytes # (test code = Lymphocytes 1.7 1.0-5.5 #) [facility] [id number] 19:26:00 Test Item Value Reference Range Interpretation Comments Basophils (test code = 0.7 See_Comment [Aut omated message] The Basophils) system which ge nerated this result tra nsmitted reference range : <=1.0. The reference r juan was not used to int erpret this result as normal/abnormal . [id number] 19:26:00 Test Item Value Reference Range Interpretation Comments Monocytes (test code = Monocytes) 9.8 2.0-12.0 [facility] H[id number] 19:26:00 Test Item Value Reference Range Interpretation Comments Eosinophils (test code = 1.5 See_Comment [A utomated message] The Eosinophils) system which ge nerated this result tra nsmitted reference range : <=4.0. The reference r juan was not used to int erpret this result as normal/abnormal . [facility] Hospit[id number] 19:26:00 Test Item Value Reference Range Interpretation Comments Segs (test code = Segs) 58.8 45.0-75.0 [facility] H[id number] 19:26:00 Test Item Value Reference Range Interpretation Comments Lymphocytes (test code = Lymphocytes) 29.2 20.0-40.0 [facility] Hospit[id number] 19:26:00 Test Item Value Reference Range Interpretation Comments RDW (test code = RDW) 14.0 11.5-14.5 [facility] HospitalElkogafDETAOAAFVC0836-06-37 19:26:00 Test Item Value Reference Range Interpretation Comments MPV (test code = MPV) 8.3 7.4-10.4 [facility] Ho[id number] 19:26:00 Test Item Value Reference Range Interpretation Comments Platelet (test code = Platelet) 203 133-450 [facility] HospitalGrrhyqrTKVWFHJWMJ8625-61-93 19:26:00 Test Item Value Reference Range Interpretation Comments MCH (test code = MCH) 30.5 pg 27.0-31.0 [facility] Hospit[id number] 19:26:00 Test Item Value Reference Range Interpretation Comments MCV (test code = MCV) 90.4 80.0-98.0 [facility] H[id number] 19:26:00 Test Item Value Reference Range Interpretation Comments Hgb (test code = Hgb) 13.9 12.0-16.0 [facility] H[id number] 19:26:00 Test Item Value Reference Range Interpretation Comments MCHC (test code = MCHC) 33.8 32.0-36.0 [facility] HospitalQwembnoENTDNRTKSV2840-28-18 19:26:00 Test Item Value Reference Range Interpretation Comments RBC (test code = RBC) 4.56 4.20-5.40 [facility] HospitalVdurzjoOILMILSOEX0328-16-28 19:26:00 Test Item Value Reference Range Interpretation Comments WBC (test code = WBC) 5.7 3.7-10.4 [facility] HospitalQcywzndCPZJAWLKUO3648-68-42 19:26:00 Test Item Value Reference Range Interpretation Comments Hct (test code = Hct) 41.2 36.0-48.0 [facility] HospitalRtbmlokZPRGHESMKX3537-14-53 19:26:00 Test Item Value Reference Range Interpretation Comments PTT (test code = PTT) 26.7 s 22.9-35.8 [facility] H[id number] 19:26:00 Test Item Value Reference Range Interpretation Comments INR (test code = INR) 0.94 0.85-1.17 [facility] HospitalHwvixkyBFCHMNNHPW5425-02-55 19:26:00 Test Item Value Reference Range Interpretation Comments PT (test code = PT) 12.9 s 12.0-14.7 [facility]
--- NOTE | 2022-04-05 14:06 | RAD REPORT ---
EXAM DESCRIPTION: US - Extremity Venous Uni Ltd - 04/05/2022 1:56 pm CLINICAL HISTORY: SWELLING, recent knee replacement surgery COMPARISON: None. TECHNIQUE: Real-time sonographic evaluation of the right lower extremity deep venous systems was per formed. FINDINGS: Normal compressibility, flow augmentation, phasic flow and spontaneous flow are identified in the right lower extremity common femoral, superficial femoral, popliteal and posterior tibial vei ns. No intraluminal filling defects seen. IMPRESSION: No DVT in the right lower extremity.
--- NOTE | 2022-04-05 14:42 | ER ---
Nurse's Notes [facility] Name: Fozia Harp Age: 66 yrs Sex: Female : 1955 Arrival Date: 04/05/2022 Time: 12:48 Bed DIS2 Private MD: Khoa Fink Diagnosis: Localized swelling, mass and lump, right lower limb-right knee Presentation: 04/05 13:07 Chief complaint: Patient states: had Right knee sx about four weeks ago; noticed vg1 swelling to Right knee last night, warm to touch, and states "it feels tight, but Im in no pain; I spoke with the surgeon and they stated to come to the ED to get an ultrasound". Pt denies chest pain or SOB. Coronavirus screen: Vaccine status: Patient reports receiving the 2nd dose of the covid vaccine. Client denies travel out of the [place] in the last 14 days. Ebola Screen: Patient denies exposure to infectious person. Patient denies travel to an Ebola-affected area in the 21 days before illness onset. Initial Sepsis Screen: Does the patient meet any 2 criteria? No. Patient's initial sepsis screen is negative. Does the patient have a suspected source of infection? No. Patient's initial sepsis screen is negative. Risk Assessment: Do you want to hurt yourself or someone else? Patient reports no desire to harm self or others. Onset of symptoms was April 04, 2022. 13:07 Method Of Arrival: Ambulatory vg1 13:07 Acuity: SHANNA 3 vg1 Triage Assessment: 13:09 General: Appears comfortable, Behavior is calm, cooperative. Pain: Denies pain. vg1 Musculoskeletal: Swelling present in right knee. Historical: - Allergies: 13:09 Amoxicillin; vg1 - Home Meds: 13:09 amlodipine oral [Active]; pravastatin Oral [Active]; aspirin Oral [Active]; venlafaxine vg1 Oral [Active]; Zolpidem Tartrate Oral [Active]; losartan oral [Active]; Vitamin D Oral [Active]; - PMHx: 13:09 CPAP; Hyperlipidemia; Hypertension; Sleep Apnea; vg1 - PSHx: 13:09 Right knee; Left knee; Cholecystectomy; section; vg1 - Immunization history:: Client reports receiving the 2nd dose of the Covid vaccine. - Social history:: Smoking status: Patient denies any tobacco usage or history of. Screenin:48 Abuse screen: Denies threats or abuse. Denies injuries from another. Nutritional ss screening: No deficits noted. Tuberculosis screening: Never had TB. Fall Risk None identified. Assessment: 14:48 General: Appears in no apparent distress. comfortable, Behavior is calm, cooperative, ss Denies fever, feeling ill, fatigue, chills. Neuro: Shrestha Agitation-Sedation Scale (RASS): 0 - Alert and Calm Level of Consciousness is awake, alert, obeys commands, Oriented to person, place, time, situation. Cardiovascular: Capillary refill < 3 seconds is brisk in bilateral fingers. Respiratory: Airway is patent Respiratory effort is even, unlabored, Respiratory pattern is regular, symmetrical. GI: No signs and/or symptoms were reported involving the gastrointestinal system. EENT: Nares are clear Oral mucosa is moist. Derm: Skin is intact, is healthy with good turgor, Skin is dry, Skin is pink, warm \\T\\ dry. normal. Musculoskeletal: Swelling present in right knee. Vital Signs: 13:07 BP 135 / 69; Pulse 99; Resp 16; Temp 98.2(TE); Pulse Ox 100% on R/A; Weight 92.99 kg; vg1 Height 5 ft. 2 in. (157.48 cm); Pain 0/10; 13:07 Body Mass Index 37.49 (92.99 kg, 157.48 cm) vg1 ED Course: 12:48 Patient arrived in ED. mr 12:48 Khoa Fink MD is Private Physician. mr 13:09 Triage completed. vg1 13:09 Arm band placed on. vg1 13:58 US Extremity Venous Unilateral Ltd In Process Unspecified. EDMS 14:00 Devon Marley PA is PHCP. cp 14:00 Mookie Dhillon MD is Attending Physician. cp 14:48 Renetta Trevizo RN is Primary Nurse. ss 14:48 Patient has correct armband on for positive identification. Bed in low position. Call ss light in reach. 14:48 No provider procedures requiring assistance completed. Patient did not have IV access ss during this emergency room visit. Administered Medications: No medications were administered Medication: 14:48 VIS not applicable for this client. ss Outcome: 14:41 Discharge ordered by . cp 14:48 Discharged to home ambulatory. ss 14:48 Condition: good 14:48 Discharge instructions given to patient, family, Instructed on discharge instructions, follow up and referral plans. medication usage, Demonstrated understanding of instructions, follow-up care, medications, Prescriptions given X 2. 14:50 Patient left the ED. ss Signatures: Dispatcher [employer] ED PerryFabi mr Renetta Trevizo, RN RN ss Devon Marley PA PA cp Garcia, Victoria, RN RN vg1
--- NOTE | 2022-04-05 14:42 | EDPHYS ---
Physician Documentation [facility] Name: Fozia Harp Age: 66 yrs Sex: Female : 1955 Arrival Date: 04/05/2022 Time: 12:48 Bed DIS2 Private MD: Khoa Fink ED Physician Mookie Dhillon HPI: 04/05 14:30 This 66 yrs old Female presents to ER via Ambulatory with complaints of Knee Swelling cp surgery 4 wks ago. 14:30 The patient presents with swelling, tenderness. The complaints affect the right knee. cp 14:30 Onset: The symptoms/episode began/occurred last night. Associated signs and symptoms: cp Pertinent negatives fever, pain. Treatment prior to arrival includes: no previous treatment. Patient reports history of right knee surgery approximately 4 weeks ago. Noticed swelling too right knee and reports "warm to touch" since last night. Denies shortness of breath, denies chest pain, denies injury, denies fever. Historical: - Allergies: 13:09 Amoxicillin; vg1 - Home Meds: 13:09 amlodipine oral [Active]; pravastatin Oral [Active]; aspirin Oral [Active]; venlafaxine vg1 Oral [Active]; Zolpidem Tartrate Oral [Active]; losartan oral [Active]; Vitamin D Oral [Active]; - PMHx: 13:09 CPAP; Hyperlipidemia; Hypertension; Sleep Apnea; vg1 - PSHx: 13:09 Right knee; Left knee; Cholecystectomy; section; vg1 - Immunization history:: Client reports receiving the 2nd dose of the Covid vaccine. - Social history:: Smoking status: Patient denies any tobacco usage or history of. ROS: 14:35 MS/extremity: Positive for swelling, tenderness, of the right knee. cp 14:35 Constitutional: Negative for body aches, chills, fever, poor PO intake. cp 14:35 Neck: Negative for pain with movement, pain at rest, stiffness. 14:35 Cardiovascular: Negative for chest pain, edema, palpitations. 14:35 Respiratory: Negative for cough, shortness of breath, wheezing. 14:35 Abdomen/GI: Negative for abdominal pain, nausea, vomiting, and diarrhea. 14:35 Back: Negative for pain at rest, pain with movement. 14:35 Neuro: Negative for altered mental status, headache, weakness. 14:35 All other systems are negative. Exam: 14:38 Constitutional: The patient appears in no acute distress, alert, awake, cp non-diaphoretic, non-toxic, well developed, well nourished. 14:38 Head/Face: Normocephalic, atraumatic. cp 14:38 Chest/axilla: Inspection: normal. 14:38 Cardiovascular: Rate: normal, Edema: is not appreciated, JVD: is not appreciated. 14:38 Respiratory: the patient does not display signs of respiratory distress, Respirations: normal, no use of accessory muscles, no retractions, labored breathing, is not present, Breath sounds: are clear throughout. 14:38 Abdomen/GI: Exam negative for discomfort, distension, guarding, Inspection: abdomen appears normal. 14:38 Back: pain, is absent, ROM is normal. 14:38 Musculoskeletal/extremity: Extremities: grossly normal except: noted in the anterior aspect right knee: tenderness, mild swelling, skin warm to touch without significant erythema, There is no evidence of decreased ROM, ecchymosis, ROM: full active range of motion, in the right knee. Vital Signs: 13:07 BP 135 / 69; Pulse 99; Resp 16; Temp 98.2(TE); Pulse Ox 100% on R/A; Weight 92.99 kg; vg1 Height 5 ft. 2 in. (157.48 cm); Pain 0/10; 13:07 Body Mass Index 37.49 (92.99 kg, 157.48 cm) vg1 MDM: 14:26 Patient medically screened. cp 14:40 Data reviewed: vital signs, nurses notes, radiologic studies, ultrasound. cp 14:40 Counseling: I had a detailed discussion with the patient and/or guardian regarding: the cp historical points, exam findings, and any diagnostic results supporting the discharge/admit diagnosis, radiology results, to return to the emergency department if symptoms worsen or persist or if there are any questions or concerns that arise at home. ED course: VSS. US negative. Will discharge to home for continued monitoring. 04/05 13:16 Order name: US Extremity Venous Unilateral Ltd; Complete Time: 14:28 vg1 04/05 14:28 Interpretation: Report reviewed. cp Administered Medications: No medications were administered Disposition Summary: 05/22/22 14:41 Discharge Ordered Location: Home cp Problem: new cp Symptoms: are unchanged cp Condition: Stable cp Diagnosis - Localized swelling, mass and lump, right lower limb - right knee cp Followup: cp - With: Private Physician - When: 2 - 3 days - Reason: Worsening of condition Discharge Instructions: - Discharge Summary Sheet cp Forms: - Medication Reconciliation Form cp - Thank You Letter cp - Antibiotic Education cp - Prescription Opioid Use cp Prescriptions: - Cephalexin 500 mg Oral Capsule - take 1 capsule by ORAL route every 8 hours for 10 days; 30 capsule; Refills: 0, cp Product Selection Permitted - Ibuprofen 800 mg Oral Tablet - take 1 tablet by ORAL route every 8 hours As needed take with food; 30 tablet; cp Refills: 0, Product Selection Permitted Signatures: Dispatcher [employer] EDMS Devon Marley PA PA cp Garcia, Victoria RN RN vg1 Corrections: (The following items were deleted from the chart) 04/06 14:10 13:31 MS/extremity: Positive for swelling, tenderness, of the right knee, cp cp
[2022-04-05 14:55] VITALS: BP 135/69; TEMP 98.2; O2SAT 100
== END 2022-04-05 14:50 | disposition home or self-care (01) ==
LOC: ER 12:44
DX: R22.41 Localized swelling, mass and lump, right lower limb (principal); E78.5 Hyperlipidemia, unspecified; I10 Essential (primary) hypertension; G47.30 Sleep apnea, unspecified
CPT/HCPCS: 93971; 99283

== ENCOUNTER 2024-03-19 08:41 | Emergency (ER) | payer BC, OTHER ==
--- OUTSIDE RECORDS SUMMARY | 2024-03-19 08:44 | XMS REPORT | Clinical Summary ---
Author Name Unknown Organization [facility] Address [address] [place] [address] Care Team Providers Care Design Manager Name Role Phone Meghan Sanders MD Primary Care Provider [phone] Lynette Gallardo Unavailable Meghan Sanders MD Unavailable Allergies Active Allergy Reactions Criticality Noted Date Comments Amoxicillin 02/24/2000 Medications Medication Sig Dispensed Refills Start Date End Date Status amLODIPine (NORVASC) 10 mg tablet Take 10 mg by mouth daily. 0 11/19/2017 Active MULTIVITAMIN,THER AND MINERALS (MULTI-VITAMIN HP/MINERALS ORAL) Take by mouth. 0 Act howie pravastatin (PRAVACHOL) 20 mg tablet Take 20 mg by mouth daily. 0 12/05/2017 Active venlafaxine (EFFEXOR) 37.5 mg tablet Take 37.5 mg by mouth daily. 0 09/13/2017 Active zolpidem (AMBIEN) 10 mg tablet Take 5 mg by mouth daily as needed. 0 12/02/2017 Active aspirin 81 mg EC tabletIndications:every other dAY Take 81 mg by mouth. 0 Active losartan (COZAAR) 50 mg tablet Take 50 mg by mouth daily. 0 Active Active Problems Problem Noted Date Diagnosed Date Fundic gland polyposis of stomach 05/20/2018 Overview: Added automatically from request for surgery [id number] Solitary fundic gland polyp 02/24/2018 Overview: Added automatically from request for surgery [id number] Personal history of colonic polyp 12/09/2017 Overview: Added automatically from request for surgery [id number] Surgical History Surgery Date Site/Laterality Comments SECTION, CLASSIC x2 DILATION AND CURETTAGE OF UTERUS TONSILLECTOMY TOTAL KNEE ARTHROPLASTY Left EGD 06/06/2015 changes consistent with reflux EGD 02/15/2018 3 FGP removed; 1 with LGD; f/up 1 year COLONOSCOPY W/ POLYPECTOMY 06/06/2015 2 TA, 1 SSA removed; f/up 3 years COLONOSCOPY W/ POLYPECTOMY 02/15/2018 diverticulosis in sigmoid colon; 1 hyperplastic polyp removed; f/up 5 years MA COLONOSCOPY FLX DX W/CHARISMA J SPEC WHEN PFRMD 02/15/2018 N/A Procedure: DIAGNOSTIC FLEXIBLE COLONOSCOPY PROXIMAL TO SPLENIC FLEXURE; Surgeon: Cm Grande MD; Location: MAIN ENDOSCOPY; Service: GASTROENTEROLOGY; f/up 5 years MA ESOPHAGOGASTRODUODENOSCOP Y TRANSORAL DIAGNOSTIC 02/15/2018 Esophagus/N/A Procedure: DIAGNOSTIC UPPER GASTROINTESTINAL ENDOSCOPY; Surgeon: Cm Grande MD; Location: MAIN ENDOSCOPY; Service: GASTROENTEROLOGY MA EGD TRANSORAL BIOPSY SINGLE/MULTIPLE 05/10/2018 Esophagus/N/A Procedure: UPPER GASTROINTESTINAL ENDOSCOPY OF ESOPHAGUS, STOMACH, AND DUODENUM WITH BIOPSY; Surgeon: Cm Grande MD; Location: MAIN ENDOSCOPY; Service: GASTROENTEROLOGY; f/up 1-2 years MA EGD TRANSORAL BIOPSY SINGLE/MULTIPLE 08/15/2019 Esophagus/N/A Procedure: UPPER GASTROINTESTINAL ENDOSCOPY OF ESOPHAGUS, STOMACH, AND DUODENUM WITH BIOPSY; Surgeon: mC Grande MD; Location: MAIN ENDOSCOPY; Service: GASTROENTEROLOGY Medical History Medical History Date Comments Hypertension Hypercholesterolemia H/O: depression Sleep apnea Hypokalemia Tubular adenoma of colon 06/06/2015 s/p kitty ypectomy Serrated polyp of colon 06/06/2015 s/p poly pectomy Gastroesophageal reflux disease 06/06/2015 EGD revealed changes consistent with reflux Hiatal hernia 02/15/2018 large hiatal her hiwot with paraesophageal component noted on EGD Fundic gland polyposis of stomach 02/15/2018 s/p polypectomy; 1 FGP had LGD Diverticulosis of sigmoid colon 02/15/2018 noted on colonoscopy Depressive disorder Family History Medical History Relation Name Comments Bladder Cancer Father Diabetes Mother Hypertension Mother Kidney disease Mother Kidney failure Mother -Other cancer Paternal Grandmother ? live r vs renal Relation Name Status Comments Father Mother Paternal Grandmother Social History Tobacco Use Types Packs/Day Years Used Date Smoking Tobacco: Never Smokeless Tobacco: Never Alcohol Use Standard Drinks/Week Comments No 0 (1 standard drink = 0.6 oz pure alcohol) Quit 11/15/17. Previously up to 5 glasses wine per day Sex and Gender Information Value Date Recorded Sex Assigned at Not on file Gender Identity Not on file Sexual Orientation Not on file Obstetrics History Plan of Treatment Health Maintenance Due Date Last Done Comments COVID-19 Vaccine (#1) 06/21/1956 Influenza Vaccine 07/16/2024 10/09/2015, 09/12/2013 Care Teams Design Manager Relationship Specialty Start Date End Date Meghan Sanders MD [facility] [place] [address] PCP - General 01/15/16 Lynette Gallardo PA [address] [place] [id number] Physician Ultrasound Technol 01/22/16 Meghan Sanders MD [address] [place] [id number] Physician 01/22/16
[2024-03-19] MEDS ORDERED: ONDANSETRON 4 MG/2 ML VIAL ONE ×2 (09:00→10:10)
[2024-03-19] MEDS ORDERED: dexAMETHasone 10 MG/ML VIAL ONE (09:00)
[2024-03-19] MEDS ORDERED: DIAZEPAM 5 MG TABLET ONE (09:01)
[2024-03-19] MEDS ORDERED: KETOROLAC 30 MG/ML INJ ONE (09:01)
[2024-03-19] MEDS ORDERED: FENTANYL CITR 100 MCG/2 ML ONE ×2 (09:01→10:10)
[2024-03-19] MEDS ORDERED: NA CHLORIDE 0.9% 1,000 ML ONE (09:02)
[2024-03-19 09:24] LABS: Absolute Eosinophils 0.1 K/uL (0-0.5); Absolute Lymphocytes (CBC) 1.2 K/uL (0.7-4.9); Absolute Monocytes 0.5 K/uL (0.1-1.3); Absolute Neutrophil 4.2 K/uL (1.8-8.0); Basophils % 0.6 % (0-1.3); Eosinophils % 2.3 % (0-4.4); Hematocrit 43.9 % (36.0-45.0); Hemoglobin 14.7 g/dL (12.0-15.0); MCH 32.2 pg (27.0-35.0); MCHC 33.5 g/dL (32.0-36.0); MCV 96.1 fL (80-100); MPV 8.3 fL (7.6-11.3); Monocytes % 8.2 % (3.3-12.3); Neutrophils % 68.9 % (41.7-73.7); Platelets 267 thou/uL (152-406); RBC Red Blood Cell Count 4.56 M/uL (3.86-4.86); Red Cell Distribution Width 14.6 % (12.1-15.2)
[2024-03-19 09:30] LABS: Specific Gravity 1.007 (1.005-1.030); Sqamous Epithelial <5 /HPF (None Seen); Transitional Epithelial <5 /HPF (None Seen); Urine Bacteria None Seen /HPF (<20); Urine Bilirubin NEGATIVE (Negative); Urine Blood Negative (Negative); Urine Clarity Turbid (Clear); Urine Color Colorless (Yellow); Urine Culture Reflex Order NOT NEEDED; Urine Glucose NEGATIVE (Negative); Urine Ketones NEGATIVE (Negative); Urine Microscopic Reflex YN ORDER UMIC; Urine Nitrite NEGATIVE (Negative); Urine Protein NEGATIVE (Negative); Urine RBC <5 /HPF (None Seen); Urine Urobilinogen Normal (Normal); Urine WBC <5 /HPF (<5)
[2024-03-19 09:40] LABS: Albumin 3.8 g/dL (3.4-5.0); Albumin/Globulin Ratio 1.1 (1.1-1.8); Anion Gap 6.5 mEq/L (5.0-15.0); Bilirubin Total 0.7 mg/dL (0.2-1.0); Globulin 3.5 g/dL (2.3-3.5); Potassium 3.5 mEq/L (3.5-5.1); Protein, Total 7.3 g/dL (6.4-8.2)
--- NOTE | 2024-03-19 10:02 | RAD REPORT ---
EXAM DESCRIPTION: CTSpine Lumbar Wo Con03/19/2024 9:43 am CLINICAL HISTORY: Back pain/radiculopathy COMPARISON: None TECHNIQUE: Computed axial tomography lumbar spine was obtained with coronal and sagittal reconstruct ion. All CT scans are performed using dose optimization technique as appropriate and may include automated exposure control or mA/KV adjustment according to patient size. FINDINGS: No fracture is seen. No dislocation Disc space narrowing, osteophytes, vacuum phenomena disc bulge are present at L1-2. Thecal sac measur es millimeters. Minimal narrowing of neural foramina bilaterally Disc bulge and osteophytes at L2-3. Mild narrowing right neural foramina. Disc bulge, ligamentum flavum facet hypertrophy L3-4. Thecal sac measures approximately 10 millimeter s. Mild narrowing right neural foramina Mild anterior subluxation of L4 on L5. Disc bulge, ligamentum flavum and facet hypertrophy. Thecal sa c measures approximately 5 millimeters. Moderate narrowing the right neural foramina Moderate right posterolateral disc herniation L5-S1. Ligamentum flavum and set hypertrophy. Marked na rrowing right neural foramina IMPRESSION: Negative for a lumbar fracture. Spondylosis L4-5 appears to result in moderate central spinal stenosis Moderate right posterolateral disc herniation L5-S1 Nonemergent MRI lumbar spine recommended further evaluation
--- NOTE | 2024-03-19 10:12 | RAD REPORT ---
EXAM DESCRIPTION: CTThoracic Spine W/o Cont03/19/2024 9:42 am CLINICAL HISTORY: Neck pain and radiculopathy COMPARISON: None TECHNIQUE: Computed axial tomography of thoracic spine was obtained with coronal and sagittal recons truction. All CT scans are performed using dose optimization technique as appropriate and may include automated exposure control or mA/KV adjustment according to patient size. FINDINGS: No fracture seen No dislocation Spondylosis distal cervical spine Mild spondylosis cervical spine mainly consisting of osteophytes. No large bulging disc/disc herniation seen. Neural foramina appear No bony lesion. Mild kyphosis Fluid filled structure left upper quadrant is incompletely evaluated on this exam but may represent a posterior diverticulum from the stomach. It contains a metallic structure. IMPRESSION: Negative for a thoracic fracture Mild spondylosis thoracic spine If the patient has clinical symptoms to suggest spinal cord/canal pathology then MRI would be recomme nded.
--- NOTE | 2024-03-19 10:29 | EDPHYS ---
Physician Documentation [facility] Name: Fozia Harp Age: 68 yrs Sex: Female : 1955 Arrival Date: 03/19/2024 Time: 08:41 Bed 4 Private MD: JADEN Physician Devon Hagen HPI: 03/19 09:52 This 68 yrs old Female presents to ER via Ambulatory with complaints of Back selina Pain. 09:52 The patient presents with pain that is acute, with no known mechanism of injury. The selina symptoms are located in the thoracic area and lumbar area. Onset: The symptoms/episode began/occurred 3 day(s) ago. The pain does not radiate. Associated signs and symptoms: The patient has no apparent associated signs or symptoms. Modifying factors: The patient symptoms are alleviated by remaining still, the patient symptoms are aggravated by bending, lifting, sitting. Severity of symptoms: At their worst the symptoms were mild, moderate, in the emergency department the symptoms are unchanged. The patient has not experienced similar symptoms in the past. Historical: - Allergies: 08:52 Amoxicillin; ll1 - PMHx: 08:52 CPAP; Hyperlipidemia; Hypertension; Sleep Apnea; ll1 - PSHx: 08:52 section; Cholecystectomy; left knee; right knee; ll1 - Immunization history:: Adult Immunizations up to date. - Infectious Disease History:: Denies. - Social history:: Smoking status: Patient denies any tobacco usage or history of. ROS: 09:53 Constitutional: Negative for fever, chills, and weight loss, Eyes: Negative for injury, selina pain, redness, and discharge, ENT: Negative for injury, pain, and discharge, Neck: Negative for injury, pain, and swelling, Cardiovascular: Negative for chest pain, palpitations, and edema, Respiratory: Negative for shortness of breath, cough, wheezing, and pleuritic chest pain, Abdomen/GI: Negative for abdominal pain, nausea, vomiting, diarrhea, and constipation, : Negative for injury, bleeding, discharge, and swelling, MS/Extremity: Negative for injury and deformity, Skin: Negative for injury, rash, and discoloration, Neuro: Negative for headache, weakness, numbness, tingling, and seizure, Psych: Negative for depression, anxiety, suicide ideation, homicidal ideation, and hallucinations, Allergy/Immunology: Negative for hives, rash, and allergies, Endocrine: Negative for neck swelling, polydipsia, polyuria, polyphagia, and marked weight changes, Hematologic/Lymphatic: Negative for swollen nodes, abnormal bleeding, and unusual bruising, 09:53 Back: Positive for decreased range of motion, pain at rest, pain with movement, of the thoracic area and lumbar area, Exam: 09:53 Constitutional: This is a well developed, well nourished patient who is awake, alert, selina and in no acute distress. Head/Face: Normocephalic, atraumatic. Eyes: Pupils equal round and reactive to light, extra-ocular motions intact. Lids and lashes normal. Conjunctiva and sclera are non-icteric and not injected. Cornea within normal limits. Periorbital areas with no swelling, redness, or edema. ENT: Nares patent. No nasal discharge, no septal abnormalities noted. Tympanic membranes are normal and external auditory canals are clear. Oropharynx with no redness, swelling, or masses, exudates, or evidence of obstruction, uvula midline. Mucous membranes moist. Neck: Trachea midline, no thyromegaly or masses palpated, and no cervical lymphadenopathy. Supple, full range of motion without nuchal rigidity, or vertebral point tenderness. No Meningismus. Chest/axilla: Normal chest wall appearance and motion. Nontender with no deformity. No lesions are appreciated. Cardiovascular: Regular rate and rhythm with a normal S1 and S2. No gallops, murmurs, or rubs. Normal PMI, no JVD. No pulse deficits. Respiratory: Lungs have equal breath sounds bilaterally, clear to auscultation and percussion. No rales, rhonchi or wheezes noted. No increased work of breathing, no retractions or nasal flaring. Abdomen/GI: Soft, non-tender, with normal bowel sounds. No distension or tympany. No guarding or rebound. No evidence of tenderness throughout. Skin: Warm, dry with normal turgor. Normal color with no rashes, no lesions, and no evidence of cellulitis. MS/ Extremity: Pulses equal, no cyanosis. Neurovascular intact. Full, normal range of motion. Neuro: Awake and alert, GCS 15, oriented to person, place, time, and situation. Cranial nerves II-XII grossly intact. Motor strength 5/5 in all extremities. Sensory grossly intact. Cerebellar exam normal. Normal gait. Psych: Awake, alert, with orientation to person, place and time. Behavior, mood, and affect are within normal limits. 09:53 ECG was reviewed by the Attending Physician. 09:53 Musculoskeletal/extremity: DVT Exam: No signs of deep vein thrombosis. no pain, no swelling, no tenderness, negative Homans' sign noted on exam, no appreciated bluish discoloration, no erythema, no increased warmth, 09:53 Skin: Appearance: Color: normal in color, Temperature: normal temperature, Moisture: normal moisture, petechiae, not noted, ecchymosis, not noted, abscess, not appreciated, cellulitis, is not appreciated, Vital Signs: 08:53 BP 167 / 94; Pulse 86; Resp 17; Temp 97.2(TE); Pulse Ox 99% on R/A; Weight 86.18 kg; ll1 Height 5 ft. 2 in. ; 09:24 BP 159 / 79; Pulse 71; Resp 18; Pulse Ox 98% on R/A; Pain 8/10; ld1 10:37 BP 149 / 72; Pulse 69; Resp 18; Pulse Ox 100% on R/A; ld1 08:53 Body Mass Index 34.75 (86.18 kg, 157.48 cm) ll1 09:24 Pain Scale: Adult ld1 [place] Coma Score: 09:53 Eye Response: spontaneous(4). Motor Response: obeys commands(6). Verbal Response: selina oriented(5). Total: 15. MDM: 08:48 Patient medically screened. selina 10:01 Differential diagnosis: Fatigue Fracture Obesity Osteoporosis Peptic Ulcer ruptured selina disc, Scoliosis spinal injury, sprain, Ureterolithiasis vertebral fracture. Data reviewed: vital signs, nurses notes, lab test result(s), EKG, radiologic studies, CT scan. Consideration of Admission/Observation Escalation of care including admission/observation considered. I considered the following discharge prescriptions or medication management in the emergency department Medications were administered in the Emergency Department. See MAR. Independent interpretation of the following test(s) in the Emergency Department EKG: See my EKG interpretation above. Test considered but Not performed: MRI: no mri spine. Care significantly affected by the following chronic conditions: Hypertension, Obesity, capa, hyperlipidemia. 03/19 08:51 Order name: CBC with Diff; Complete Time: 09:51 selina 03/19 08:51 Order name: Comprehensive Metabolic Panel; Complete Time: 09:51 [facility] 03/19 08:51 Order name: Urinalysis w/ reflexes; Complete Time: 09:51 [facility] 03/19 09:14 Order name: Lipase; Complete Time: 10:14 [facility] 03/19 08:51 Order name: CT Lumbar Spine Wo Con; Complete Time: 10:14 [facility] 03/19 08:51 Order name: CT Thoracic Spine Wo Cont; Complete Time: 10:14 [facility] 03/19 09:14 Order name: EKG; Complete Time: 09:15 [facility] 03/19 09:14 Order name: EKG - Nurse/Tech; Complete Time: 09:26 [facility] EC:53 Rate is 72 beats/min. Rhythm is regular. QRS [place] is Normal. [place] interval is normal. QRS selina interval is normal. QT interval is normal. No Q waves. T waves are Normal. No ST changes noted. Clinical impression: NSR w/ Non-specific ST/T Changes and No evidence of ischemia. Interpreted by me. Reviewed by me. Administered Medications: 09:23 Drug: NS 0.9% IV 1000 ml IV at 1 bolus Per protocol; 1000 mL bolus Route: IV; Rate: 1 ld1 bolus; Site: right antecubital; 09:23 Drug: Decadron - Dexamethasone IVP 10 mg IVP once Route: IVP; Site: right antecubital; ld1 09:23 Drug: Ketorolac IVP 15 mg IVP once Route: IVP; Site: right antecubital; ld1 09:23 Drug: Diazepam PO 10 mg PO once Route: PO; ld1 09:23 Not Given (Patient Refused): fentanyl (pf)50 mcg IVP once ld1 09:23 Drug: Ondansetron IVP 4 mg IVP once; over 2 minutes Route: IVP; Site: right antecubital;ld1 Disposition Summary: 03/19/24 10:29 Discharge Ordered Notes: Location: Home selina Problem: new selina Symptoms: have improved selina Condition: Stable selina Diagnosis - Unspecified symptoms and signs involving the musculoskeletal system selina - Low back pain selina - Strain of muscle and tendon of back wall of thorax selina - Spondylolysis, lumbar region selina - Other intervertebral disc disorders, lumbar region selina Followup: selina - With: Private Physician - When: 2 - 3 days - Reason: Recheck today's complaints, Continuance of care, Re-evaluation by your physician Followup: [facility] - With: Patricio Presley MD - When: 2 - 3 days - Reason: Recheck today's complaints, Re-evaluation by your physician Discharge Instructions: - Discharge Summary Sheet selina - Acute Back Pain, Adult selina - Herniated Disk selina - Musculoskeletal Pain selina - Back Injury Prevention, [id number] selina - Degenerative Disk Disease selina - Spondylolysis selina - Herniated Disk Rehab [facility] Forms: - Medication Reconciliation Form [facility] - Antibiotic Education selina - Prescription Opioid Use selina - Patient Portal Instructions [facility] - Leadership Thank You Letter [facility] Prescriptions: - acetaminophen-codeine 300-30 mg Oral tablet - take 2 tablet ORAL route every 6 hours as needed for pain; 20 tablet; Refills: selina 0, Product Selection Permitted - dexamethasone 4 mg Oral tablet - take 1 tablet ORAL route once daily; 5 tablet; Refills: 0, Product Selection selina Permitted - Diclofenac Sodium 75 mg Oral tablet, delayed release (enteric coated) - take 1 tablet ORAL route 2 times per day; 20 tablet; Refills: 0, Product [facility] Selection Permitted - Cyclobenzaprine 5 mg Oral Tablet - take 1 tablet ORAL route 3 times per day As needed; 15 tablet; Refills: 0, selina Product Selection Permitted Signatures: Dispatcher [employer] EDDevon Cheung MD MD cha Lewis, Lynsay, RN RN ll1 Lynette Patton RN RN ld1 Corrections: (The following items were deleted from the chart) 08:52 08:52 Spine Lumbar Wo Con+CT.RAD.BRZ ordered. EDMS EDMS 08:52 08:52 Thoracic Spine WO Cont+CT.RAD.BRZ ordered. EDMS EDMS
--- NOTE | 2024-03-19 10:29 | ER ---
Nurse's Notes [facility] Name: Fozia Harp Age: 68 yrs Sex: Female : 1955 Arrival Date: 03/19/2024 Time: 08:41 Bed 4 Private MD: Diagnosis: Unspecified symptoms and signs involving the musculoskeletal system;Low back pain;Strain of muscle and tendon of back wall of thorax;Spondylolysis, lumbar region;Other intervertebral disc disorders, lumbar region Presentation: 03/19 08:53 Chief complaint: Patient states: Mid back pain for 1 week. Coronavirus screen: Client ll1 denies travel out of the [place] in the last 14 days. At this time, the client does not indicate any symptoms associated with coronavirus-19. Ebola Screen: Patient reports travel to Ebola-affected area in the 21 days before illness onset. Patient reports having traveled to: [place]. Initial Sepsis Screen: Does the patient meet any 2 criteria? No. Patient's initial sepsis screen is negative. Does the patient have a suspected source of infection? No. Patient's initial sepsis screen is negative. Risk Assessment: Do you want to hurt yourself or someone else? Patient reports no desire to harm self or others. Onset of symptoms was March 12, 2024. 08:53 Method Of Arrival: Ambulatory ll1 08:53 Acuity: SHANNA 3 ll1 Triage Assessment: 08:55 General: Appears distressed, uncomfortable, Behavior is cooperative, appropriate for ll1 age, crying. Pain: Complains of pain in back Quality of pain is described as aching. Musculoskeletal: Circulation, motion, and sensation intact. Capillary refill < 3 seconds, Reports pain in mid back. Historical: - Allergies: 08:52 Amoxicillin; ll1 - PMHx: 08:52 CPAP; Hyperlipidemia; Hypertension; Sleep Apnea; ll1 - PSHx: 08:52 section; Cholecystectomy; left knee; right knee; ll1 - Immunization history:: Adult Immunizations up to date. - Infectious Disease History:: Denies. - Social history:: Smoking status: Patient denies any tobacco usage or history of. Screenin:24 [facility] ED Fall Risk Assessment (Adult) History of falling in the last 3 months, ld1 including since admission No falls in past 3 months (0 pts). Abuse screen: Denies threats or abuse. Denies injuries from another. Nutritional screening: No deficits noted. Tuberculosis screening: No symptoms or risk factors identified. Assessment: 09:24 General: Appears in no apparent distress. comfortable, Behavior is cooperative, ld1 appropriate for age, anxious, crying. Pain: Complains of pain in thoracic area and lumbar area Pain does not radiate. Pain currently is 8 out of 10 on a pain scale. Quality of pain is described as pressure, throbbing, Pain began 2 months Is intermittent. Neuro: Level of Consciousness is awake, alert, obeys commands, Oriented to person, place, time, situation. Cardiovascular: Capillary refill < 3 seconds Patient's skin is warm and dry. Rhythm is sinus rhythm. Respiratory: Airway is patent Respiratory effort is even, unlabored. GI: Abdomen is round non-distended. : No signs and/or symptoms were reported regarding the genitourinary system. EENT: No signs and/or symptoms were reported regarding the EENT system. Derm: No signs and/or symptoms reported regarding the dermatologic system. 10:37 Reassessment: Patient appears in no apparent distress at this time. No changes from ld1 previously documented assessment. Patient and/or family updated on plan of care and expected duration. Pain level reassessed. Patient is alert, oriented x 3, equal unlabored respirations, skin warm/dry/pink. Vital Signs: 08:53 BP 167 / 94; Pulse 86; Resp 17; Temp 97.2(TE); Pulse Ox 99% on R/A; Weight 86.18 kg; ll1 Height 5 ft. 2 in. ; 09:24 BP 159 / 79; Pulse 71; Resp 18; Pulse Ox 98% on R/A; Pain 8/10; ld1 10:37 BP 149 / 72; Pulse 69; Resp 18; Pulse Ox 100% on R/A; ld1 08:53 Body Mass Index 34.75 (86.18 kg, 157.48 cm) ll1 09:24 Pain Scale: Adult ld1 [place] Coma Score: 09:53 Eye Response: spontaneous(4). Motor Response: obeys commands(6). Verbal Response: selina oriented(5). Total: 15. ED Course: 08:45 Patient arrived in ED. ra3 08:47 Devon Hagen MD is Attending Physician. selina 08:47 Arm band placed on Patient placed in an exam room, on a stretcher. ll1 08:49 Lynette Patton, CLARIBEL is Primary Nurse. ld1 08:55 Triage completed. ll1 09:23 Urinalysis w/ reflexes Sent. ld1 09:24 Patient has correct armband on for positive identification. Placed in gown. Bed in low ld1 position. Call light in reach. Side rails up X2. nurse monitoring on. Pulse ox on. NIBP on. Door closed. Noise minimized. Warm blanket given. 09:24 No provider procedures requiring assistance completed. Inserted saline lock: 20 gauge ld1 in right antecubital area, using aseptic technique. Blood collected. 09:43 CT Lumbar Spine Wo Con In Process Unspecified. EDMS 09:43 CT Thoracic Spine Wo Cont In Process Unspecified. EDMS 10:29 Patricio Presley MD is Referral Physician. [facility] 10:38 IV discontinued, intact, bleeding controlled, No redness/swelling at site. ld1 Administered Medications: 09:23 Drug: NS 0.9% IV 1000 ml IV at 1 bolus Per protocol; 1000 mL bolus Route: IV; Rate: 1 ld1 bolus; Site: right antecubital; 09:23 Drug: Decadron - Dexamethasone IVP 10 mg IVP once Route: IVP; Site: right antecubital; ld1 09:23 Drug: Ketorolac IVP 15 mg IVP once Route: IVP; Site: right antecubital; ld1 09:23 Drug: Diazepam PO 10 mg PO once Route: PO; ld1 09:23 Not Given (Patient Refused): fentanyl (pf)50 mcg IVP once ld1 09:23 Drug: Ondansetron IVP 4 mg IVP once; over 2 minutes Route: IVP; Site: right antecubital;ld1 Medication: 09:24 VIS not applicable for this client. ld1 Outcome: 10:29 Discharge ordered by . selina 10:37 Discharged to home ambulatory, ld1 10:37 Condition: stable 10:37 Discharge instructions given to patient, Instructed on discharge instructions, follow up and referral plans. medication usage, Demonstrated understanding of instructions, follow-up care, medications, Prescriptions given X 4, 10:38 Patient left the ED. ld1 Signatures: Dispatcher [employer] EDWI Devon Hagen MD MD cha Lewis, Lynsay, RN RN ll1 Lynette Patton RN RN ld1 Maryellen Zamora ra3
[2024-03-19 10:53] VITALS: BP 149/72; TEMP 97.2; O2SAT 100
--- NOTE | 2024-03-20 14:41 | EKG ---
Test Date: 2024-03-19 Test Time: 09:29:02 [employer] Service Attendant: PANFILO MEASUREMENT RESULTS: Intervals: Rate: 72 RI: 142 QRSD: 74 QT: 422 QTc: 462 [place]: P: 49 RI: 142 QRS: -33 T: -21 INTERPRETIVE STATEMENTS: Normal sinus rhythm Left axis deviation Nonspecific ST abnormality Abnormal ECG Compared to ECG 04/25/2019 14:55:40 Left-axis deviation now present ST (T wave) deviation now present Electronically Signed On 03-20-24 14:38:11 CDT by Daniel Peralta
== END 2024-03-19 10:38 | disposition home or self-care (01) ==
LOC: ER 08:41
DX: S29.012A Strain of muscle and tendon of back wall of thorax, initial encounter (principal); R29.91 Unspecified symptoms and signs involving the musculoskeletal system; M43.06 Spondylolysis, lumbar region; M51.86 Other intervertebral disc disorders, lumbar region; Z88.1 Allergy status to other antibiotic agents
CPT/HCPCS: 93005; 85025; 81001; 36415; 83690; 80053; 72131; 72128; 96375; 96374; 99285; J3010 ×2; J1100; J2405 ×2; J7030